=== PATIENT | male | born 1980 | race African-American/Black ===

== ENCOUNTER 2019-02-16 13:59 | Inpatient (IN) | payer MEDICAID ==
[~2019-02-16] VITALS: Ht 190.5 cm; Wt 64.1 kg
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
[2019-02-16 15:44] LABS: INTERNATIONAL NORMALIZED RATIO 0.94 (0.93-1.1); PROTHROMBIN TIME 9.9 Seconds (9.6-11.5)
[2019-02-16 15:48] LABS: ALANINE AMINOTRANSFERASE 13 U/L (12-78); ALBUMIN 1.2 g/dL (3.4-5.0); ANION GAP 16 mmol/L (5-15); CALCIUM 8.3 mg/dL (8.5-10.1); CHLORIDE 106 mmol/L (98-107)
[2019-02-16 15:52] LABS: ALKALINE PHOSPHATASE 84 U/L (45-117); BILIRUBIN,TOTAL 0.2 mg/dL (0.2-1.0); TOTAL PROTEIN 6.7 g/dL (6.4-8.2)
[2019-02-16 15:55] LABS: MEAN CORPUSCULAR HEMOGLOBIN 31.9 pg (27.5-34.5); MEAN CORPUSCULAR HGB CONC 33.7 g/dL (33.2-36.2); MEAN CORPUSCULAR VOLUME 94.6 fL (81-97); MEAN PLATELET VOLUME 7.9 fL (7.4-10.4); PLATELET COUNT 370 x10^3/uL (130-400); RED CELL DISTRIBUTION WIDTH 15.8 % (9.4-14.8)
[2019-02-16 16:11] LABS: MICROSCOPIC INDICATED
[2019-02-16 16:23] LABS: CULTURE INDICATED? NO
--- NOTE | 2019-02-16 16:30 | NUR ---
US TECH AT BEDSIDE.
[2019-02-16 16:55] LABS: MD YES
[2019-02-16 16:56] LABS: BASOS% (MANUAL) 1 % (0-1); LYMPH#(MANUAL) 0.51 x10^3/uL (1-3.4); LYMPHS% (MANUAL) 5 % (22-44); SEG#(MANUAL) 9.49 x10^3/uL (1.8-6.8); SEGS% (MANUAL) 94 % (42-75)
[2019-02-16 16:57] LABS: <PLATELET ESTIMATE> ADEQUATE; ANISOCYTOSIS 1+; LARGE PLATELETS 1+
[2019-02-16] MEDS ORDERED: NS + 20MEQ KCL 1,000 ML IV SCH ×2 (17:06→17:30)
[2019-02-16] MEDS ORDERED: POTASSIUM CHLORIDE 20 MEQ, MAGNESIUM SULFATE 2 GM, THIAMINE 200 MG, MVI ADULT 10 ML, FO... IV SCH (18:00)
[2019-02-16 18:16] LABS: ANION GAP 14 mmol/L (5-15); CALCIUM 8.1 mg/dL (8.5-10.1); CHLORIDE 109 mmol/L (98-107)
[2019-02-16 18:49] VITALS: BP 103/67
[2019-02-16] MEDS: HEPARIN 5,000 UNITS/ML, 1ML SQ SCH (20:49)
[2019-02-16 21:47] LABS: AMPHETAMINE SCREEN, URINE Negative (Negative); BARBITURATE SCREEN, URINE Negative (Negative); BENZODIAZEPINE SCREEN, URINE Negative (Negative); CANNABINOID SCREEN, URINE Negative (Negative); COCAINE SCREEN, URINE Positive (Negative); METHADONE SCREEN, URINE Negative (Negative); OPIATE SCREEN, URINE Negative (Negative)
[2019-02-16 21:56] LABS: PROTEIN/CREATININE RATIO,URINE 8915 (0-200); TOTAL PROTEIN,URINE RANDOM 731 mg/dL (0-12)
[2019-02-16] MEDS: LIDODERM 5% PATCH TD PRN (22:35)
[2019-02-16 23:39] LABS: ANION GAP 16 mmol/L (5-15); CALCIUM 7.8 mg/dL (8.5-10.1); CHLORIDE 108 mmol/L (98-107)
[2019-02-17 01:28] VITALS: BP 108/74
[2019-02-17] MEDS: HEPARIN 5,000 UNITS/ML, 1ML SQ SCH ×3 (05:26→22:26)
[2019-02-17 05:33] LABS: MEAN CORPUSCULAR HEMOGLOBIN 32.2 pg (27.5-34.5); MEAN CORPUSCULAR HGB CONC 33.9 g/dL (33.2-36.2); MEAN PLATELET VOLUME 7.8 fL (7.4-10.4); PLATELET COUNT 309 x10^3/uL (130-400); RED BLOOD COUNT 2.13 x10^6/uL (4.38-5.82); RED CELL DISTRIBUTION WIDTH 15.4 % (9.4-14.8)
[2019-02-17 05:46] LABS: ANION GAP 16 mmol/L (5-15); CALCIUM 7.7 mg/dL (8.5-10.1); CHLORIDE 107 mmol/L (98-107)
[2019-02-17 05:59] LABS: % IRON SATURATION 18 % (20-55); ALANINE AMINOTRANSFERASE 7 U/L (12-78); ALKALINE PHOSPHATASE 72 U/L (45-117); BILIRUBIN,TOTAL 0.3 mg/dL (0.2-1.0); IRON LEVEL 17 mcg/dL (65-175); TOTAL IRON BINDING CAPACITY 95 mcg/dL (250-450); TOTAL PROTEIN 5.4 g/dL (6.4-8.2)
[2019-02-17 06:10] LABS: MD YES
[2019-02-17 06:13] LABS: LYMPH#(MANUAL) 0.68 x10^3/uL (1-3.4); LYMPHS% (MANUAL) 6 % (22-44); MONOS#(MANUAL) 0.23 x10^3/uL (0.3-2.7); MONOS% (MANUAL) 2 % (2-9); SEG#(MANUAL) 10.49 x10^3/uL (1.8-6.8); SEGS% (MANUAL) 92 % (42-75)
[2019-02-17 06:14] LABS: ANISOCYTOSIS 1+; HYPOCHROMIA 1+
[2019-02-17 06:15] LABS: <PLATELET ESTIMATE> ADEQUATE; <PLT MORPHOLOGY> NORMAL PLT MORPH; SPHEROCYTES 1+
[2019-02-17] MEDS ORDERED: SODIUM BICARBONATE 8.4% 75 MEQ in DEXTROSE 5% 1,000 ML IV ONE (06:30)
[2019-02-17 07:37] VITALS: BP 100/56
[2019-02-17 08:30] LABS: CRYPTOSPORIDIUM ANTIGEN Negative (Negative)
[2019-02-17] MEDS ORDERED: SODIUM BICARB IV SCH (11:00)
[2019-02-17] MEDS ORDERED: POTASSIUM CHLORIDE IV SCH (11:00)
[2019-02-17] MEDS ORDERED: [UNRECOGNIZED DRUG - OTHER] IV SCH (11:00)
[2019-02-17] MEDS ORDERED: SODIUM BICARBONATE 8.4% 100 MEQ in DEXTROSE 5% 1,000 ML IV SCH (12:00)
[2019-02-17] MEDS ORDERED: ERGOCALCIFEROL 50,000 UNIT CAPSULE PO SCH (12:00)
[2019-02-17] MEDS: metroNIDAZOLE 500 MG TABLET PO SCH (13:28)
[2019-02-17] MEDS: [UNRECOGNIZED DRUG - OTHER] IV SCH ×2 (14:00→22:45)
[2019-02-17] MEDS: POTASSIUM CHLORIDE IV SCH ×2 (14:00→22:45)
[2019-02-17] MEDS: SODIUM BICARB IV SCH ×2 (14:00→22:45)
[2019-02-17 14:14] VITALS: BP 110/59
[2019-02-17 17:59] LABS: ANION GAP 13 mmol/L (5-15); CALCIUM 7.6 mg/dL (8.5-10.1); CHLORIDE 107 mmol/L (98-107)
[2019-02-17 19:25] VITALS: BP 105/65
[2019-02-17] MEDS: LIDODERM 5% PATCH TD PRN (22:27)
[2019-02-18 02:09] VITALS: BP 102/67
[2019-02-18 05:44] LABS: CHLORIDE 106 mmol/L (98-107)
[2019-02-18 05:47] LABS: ANION GAP 14 mmol/L (5-15); CALCIUM 7.8 mg/dL (8.5-10.1)
[2019-02-18] MEDS: HEPARIN 5,000 UNITS/ML, 1ML SQ SCH ×3 (06:31→21:56)
[2019-02-18 07:39] VITALS: BP 110/68
[2019-02-18 09:06] LABS: MEAN CORPUSCULAR HEMOGLOBIN 32.1 pg (27.5-34.5); MEAN CORPUSCULAR HGB CONC 34.1 g/dL (33.2-36.2); MEAN CORPUSCULAR VOLUME 94.1 fL (81-97); MEAN PLATELET VOLUME 8.5 fL (7.4-10.4); PLATELET COUNT 344 x10^3/uL (130-400); RED BLOOD COUNT 2.07 x10^6/uL (4.38-5.82); RED CELL DISTRIBUTION WIDTH 14.8 % (9.4-14.8)
[2019-02-18 09:29] LABS: BASOPHILS % (AUTO) 0 % (0-1); EOSINOPHILS % (AUTO) 0 % (1-7); LYMPHOCYTES # (AUTO) 0.31 x10^3/uL (1-3.4); LYMPHOCYTES % (AUTO) 3 % (22-44); MD SCAN; MONOCYTES # (AUTO) 0.01 x10^3/uL (0.2-0.8); MONOCYTES % (AUTO) 0 % (2-9); NEUTROPHILS % (AUTO) 97 % (42-75)
[2019-02-18] MEDS: metroNIDAZOLE 500 MG TABLET PO SCH (10:06)
[2019-02-18] MEDS: SODIUM BICARB IV SCH ×2 (10:06→21:56)
[2019-02-18] MEDS: [UNRECOGNIZED DRUG - OTHER] IV SCH ×2 (10:06→21:56)
[2019-02-18] MEDS: POTASSIUM CHLORIDE IV SCH ×2 (10:06→21:56)
[2019-02-18 14:17] VITALS: BP 112/72
[2019-02-18 14:49] LABS: TROPONIN I < 0.015 ng/mL (0.000-0.045)
[2019-02-18] MEDS ORDERED: MIDAZOLAM 1 MG/ML, 5ML ONE (15:21)
[2019-02-18] MEDS ORDERED: FENTANYL PF 100 MCG/2ML ONE (15:21)
[2019-02-18] MEDS ORDERED: CEFAZOLIN PMX 1GM/50ML ONE (15:40)
[2019-02-18 18:36] LABS: ANION GAP 10 mmol/L (5-15); CALCIUM 7.6 mg/dL (8.5-10.1); CHLORIDE 106 mmol/L (98-107); CREATININE 6.95 mg/dL (0.7-1.3)
[2019-02-18 18:39] LABS: TROPONIN I < 0.015 ng/mL (0.000-0.045)
[2019-02-18 20:06] VITALS: BP 112/75
[2019-02-18 21:12] VITALS: BP 110/69
[2019-02-18 22:54] LABS: TROPONIN I < 0.015 ng/mL (0.000-0.045)
[2019-02-18] MEDS ORDERED: TEMAZEPAM 15 MG CAPSULE PO PRN (23:30)
[2019-02-19 01:42] VITALS: BP 102/61
[2019-02-19 03:40] VITALS: BP 100/67
[2019-02-19] MEDS: HEPARIN 5,000 UNITS/ML, 1ML SQ SCH ×3 (05:55→22:30)
[2019-02-19 07:49] LABS: ANION GAP 8 mmol/L (5-15); CALCIUM 7.2 mg/dL (8.5-10.1); CHLORIDE 108 mmol/L (98-107); CREATININE 6.71 mg/dL (0.7-1.3)
[2019-02-19 07:52] LABS: MEAN CORPUSCULAR HEMOGLOBIN 31.5 pg (27.5-34.5); MEAN CORPUSCULAR HGB CONC 33.7 g/dL (33.2-36.2); MEAN CORPUSCULAR VOLUME 93.6 fL (81-97); MEAN PLATELET VOLUME 8.1 fL (7.4-10.4); PLATELET COUNT 357 x10^3/uL (130-400); RED CELL DISTRIBUTION WIDTH 15.1 % (9.4-14.8)
[2019-02-19 08:19] VITALS: BP 111/75
[2019-02-19 08:27] LABS: BASOPHILS % (AUTO) 0 % (0-1); EOSINOPHILS # (AUTO) 0.05 x10^3/uL (0-0.4); EOSINOPHILS % (AUTO) 1 % (1-7); LYMPHOCYTES % (AUTO) 5 % (22-44); MD SCAN; MONOCYTES # (AUTO) 0.15 x10^3/uL (0.2-0.8); MONOCYTES % (AUTO) 4 % (2-9); NEUTROPHILS # (AUTO) 3.38 x10^3/uL (1.8-6.8); NEUTROPHILS % (AUTO) 90 % (42-75)
[2019-02-19] MEDS ORDERED: metroNIDAZOLE 500 MG TABLET PO SCH (09:00)
[2019-02-19] MEDS: POTASSIUM CHLORIDE IV SCH ×2 (09:05→15:16)
[2019-02-19] MEDS: [UNRECOGNIZED DRUG - OTHER] IV SCH ×2 (09:05→15:16)
[2019-02-19] MEDS: SODIUM BICARB IV SCH ×2 (09:05→15:16)
[2019-02-19 14:04] VITALS: BP 116/78
[2019-02-19 19:05] VITALS: BP 117/77
[2019-02-19 20:25] VITALS: BP 121/87
[2019-02-20] VITALS (9 sets, daily range): BP systolic 110–132; BP diastolic 72–89
[2019-02-20] MEDS: HEPARIN 5,000 UNITS/ML, 1ML SQ SCH ×3 (05:11→22:54)
[2019-02-20] MEDS: POTASSIUM CHLORIDE IV SCH (06:27)
[2019-02-20] MEDS: SODIUM BICARB IV SCH (06:27)
[2019-02-20] MEDS: [UNRECOGNIZED DRUG - OTHER] IV SCH (06:27)
[2019-02-20] MEDS ORDERED: ARANESP 100 MCG/ML **ESRD SQ SCH (10:00)
[2019-02-21 01:12] VITALS: BP 108/71
[2019-02-21] MEDS: [UNRECOGNIZED DRUG - OTHER] IV SCH ×2 (01:40→11:09)
[2019-02-21] MEDS: SODIUM BICARB IV SCH ×2 (01:40→11:09)
[2019-02-21] MEDS: POTASSIUM CHLORIDE IV SCH ×2 (01:40→11:09)
[2019-02-21] MEDS: HEPARIN 5,000 UNITS/ML, 1ML SQ SCH ×3 (06:17→22:44)
[2019-02-21 06:33] LABS: MEAN CORPUSCULAR HGB CONC 33.3 g/dL (33.2-36.2); MEAN CORPUSCULAR VOLUME 93.2 fL (81-97); MEAN PLATELET VOLUME 7.9 fL (7.4-10.4); PLATELET COUNT 365 x10^3/uL (130-400); RED BLOOD COUNT 2.66 x10^6/uL (4.38-5.82); RED CELL DISTRIBUTION WIDTH 16.2 % (9.4-14.8)
[2019-02-21 06:39] LABS: ANION GAP 7 mmol/L (5-15); CALCIUM 7.5 mg/dL (8.5-10.1); CHLORIDE 109 mmol/L (98-107); CREATININE 5.83 mg/dL (0.7-1.3)
[2019-02-21 06:40] VITALS: BP 118/81
[2019-02-21 06:57] LABS: BASOPHILS # (AUTO) 0.02 x10^3/uL (0-0.1); BASOPHILS % (AUTO) 1 % (0-1); EOSINOPHILS % (AUTO) 0 % (1-7); LYMPHOCYTES # (AUTO) 0.28 x10^3/uL (1-3.4); LYMPHOCYTES % (AUTO) 11 % (22-44); MD SCAN; MONOCYTES # (AUTO) 0.28 x10^3/uL (0.2-0.8); MONOCYTES % (AUTO) 11 % (2-9); NEUTROPHILS # (AUTO) 2.05 x10^3/uL (1.8-6.8); NEUTROPHILS % (AUTO) 78 % (42-75)
[2019-02-21 10:31] LABS: QUANTIFERON TB Ag1-NIL 0 (0.000-0.000)
[2019-02-21] MEDS ORDERED: FLUCONAZOLE 200 MG TABLET PO ONE (13:00)
[2019-02-21 13:05] VITALS: BP 133/90
[2019-02-21] MEDS ORDERED: ONDANSETRON 2MG/ML, 2ML IVPush PRN (16:00)
[2019-02-21] MEDS ORDERED: ONDANSETRON 2MG/ML, 2ML ONE (16:02)
[2019-02-21 19:59] VITALS: BP 103/69
[2019-02-22 01:30] VITALS: BP 109/80
[2019-02-22 06:17] LABS: ALANINE AMINOTRANSFERASE 22 U/L (12-78); ALBUMIN 1.2 g/dL (3.4-5.0); ANION GAP 7 mmol/L (5-15); CALCIUM 6.9 mg/dL (8.5-10.1); CHLORIDE 107 mmol/L (98-107); CREATININE 3.83 mg/dL (0.7-1.3)
[2019-02-22 06:19] LABS: ALKALINE PHOSPHATASE 68 U/L (45-117); TOTAL PROTEIN 5.2 g/dL (6.4-8.2)
[2019-02-22 06:21] LABS: BILIRUBIN,TOTAL < 0.1 mg/dL (0.2-1.0); MEAN CORPUSCULAR HEMOGLOBIN 31.3 pg (27.5-34.5); MEAN CORPUSCULAR HGB CONC 33.5 g/dL (33.2-36.2); MEAN CORPUSCULAR VOLUME 93.3 fL (81-97); RED CELL DISTRIBUTION WIDTH 15.7 % (9.4-14.8)
[2019-02-22] MEDS: HEPARIN 5,000 UNITS/ML, 1ML SQ SCH ×3 (06:23→22:49)
[2019-02-22 06:48] LABS: MEAN PLATELET VOLUME 8.1 fL (7.4-10.4); PLATELET COUNT 322 x10^3/uL (130-400)
[2019-02-22 06:50] LABS: BASOPHILS # (AUTO) 0.02 x10^3/uL (0-0.1); BASOPHILS % (AUTO) 1 % (0-1); EOSINOPHILS # (AUTO) 0.02 x10^3/uL (0-0.4); EOSINOPHILS % (AUTO) 1 % (1-7); LYMPHOCYTES # (AUTO) 0.43 x10^3/uL (1-3.4); LYMPHOCYTES % (AUTO) 20 % (22-44); MD SCAN; MONOCYTES # (AUTO) 0.38 x10^3/uL (0.2-0.8); MONOCYTES % (AUTO) 18 % (2-9); NEUTROPHILS % (AUTO) 60 % (42-75)
[2019-02-22 08:15] VITALS: BP 100/69
[2019-02-22] MEDS ORDERED: FLUCONAZOLE 100 MG TABLET PO SCH (09:00)
[2019-02-22 14:10] VITALS: BP 117/78
[2019-02-22 20:23] VITALS: BP 111/76
[2019-02-23 00:46] VITALS: BP 108/68
[2019-02-23] MEDS: HEPARIN 5,000 UNITS/ML, 1ML SQ SCH (05:41)
[2019-02-23 05:48] LABS: ANION GAP 8 mmol/L (5-15); CALCIUM 7.2 mg/dL (8.5-10.1); CHLORIDE 111 mmol/L (98-107); CREATININE 5.15 mg/dL (0.7-1.3)
[2019-02-23 05:49] LABS: MEAN CORPUSCULAR HEMOGLOBIN 32.3 pg (27.5-34.5); MEAN CORPUSCULAR HGB CONC 34.6 g/dL (33.2-36.2); MEAN CORPUSCULAR VOLUME 93.2 fL (81-97); PLATELET COUNT 324 x10^3/uL (130-400); RED BLOOD COUNT 2.23 x10^6/uL (4.38-5.82)
[2019-02-23 06:11] LABS: MD YES
[2019-02-23 06:14] LABS: <PLATELET ESTIMATE> ADEQUATE; <PLT MORPHOLOGY> NORMAL PLT MORPH; <RBC MORPHOLOGY> NORMAL; BASOS#(MANUAL) 0.02 x10^3/uL (0-0.1); BASOS% (MANUAL) 1 % (0-1); LYMPH#(MANUAL) 0.38 x10^3/uL (1-3.4); LYMPHS% (MANUAL) 19 % (22-44); MONOS#(MANUAL) 0.18 x10^3/uL (0.3-2.7); MONOS% (MANUAL) 9 % (2-9); SEG#(MANUAL) 1.42 x10^3/uL (1.8-6.8); SEGS% (MANUAL) 71 % (42-75)
[2019-02-23 07:59] VITALS: BP 112/77
[2019-02-23] MEDS ORDERED: metroNIDAZOLE 500 MG TABLET PO SCH ×2 (09:00)
== END 2019-02-23 08:15 | disposition left against medical advice (07) | DRG 974 ==
LOC: ED 17:05 → EDIP 17:06 → ED 17:32 → 4WST 18:37
PROVIDERS: ADMIT Internal Medicine; ATTEND Internal Medicine
PROC: 5A1D70Z Performance of Urinary Filtration, Intermittent, Less than 6 Hours Per Day (ICD-10-PCS; principal; 2019-02-18)
PROC: 02HV33Z Insertion of Infusion Device into Superior Vena Cava, Percutaneous Approach (ICD-10-PCS; 2019-02-18)
PROC: B5181ZA Fluoroscopy of Superior Vena Cava using Low Osmolar Contrast, Guidance (ICD-10-PCS; 2019-02-18)
PROC: B548ZZA Ultrasonography of Superior Vena Cava, Guidance (ICD-10-PCS; 2019-02-18)
PROC: 0JH63XZ Insertion of Tunneled Vascular Access Device into Chest Subcutaneous Tissue and Fascia, Percutaneous Approach (ICD-10-PCS; 2019-02-18)
PROC: 5A1D70Z Performance of Urinary Filtration, Intermittent, Less than 6 Hours Per Day (ICD-10-PCS; 2019-02-19)
PROC: 30233N1 Transfusion of Nonautologous Red Blood Cells into Peripheral Vein, Percutaneous Approach (ICD-10-PCS; 2019-02-20)
PROC: 5A1D70Z Performance of Urinary Filtration, Intermittent, Less than 6 Hours Per Day (ICD-10-PCS; 2019-02-21)
DX: B20 Human immunodeficiency virus [HIV] disease (principal); N18.6 End stage renal disease; B37.0 Candidal stomatitis; E43 Unspecified severe protein-calorie malnutrition; N17.9 Acute kidney failure, unspecified; E87.1 Hypo-osmolality and hyponatremia; E87.2 Acidosis; A07.1 Giardiasis [lambliasis]; Z68.1 Body mass index [BMI] 19.9 or less, adult; K56.7 Ileus, unspecified; Z66 Do not resuscitate; K52.9 Noninfective gastroenteritis and colitis, unspecified; Z53.21 Procedure and treatment not carried out due to patient leaving prior to being seen by health care provider; D64.9 Anemia, unspecified; E21.3 Hyperparathyroidism, unspecified; E55.9 Vitamin D deficiency, unspecified; E86.1 Hypovolemia; E87.6 Hypokalemia; F10.20 Alcohol dependence, uncomplicated; F14.10 Cocaine abuse, uncomplicated; F17.200 Nicotine dependence, unspecified, uncomplicated; Z83.3 Family history of diabetes mellitus; Z84.1 Family history of disorders of kidney and ureter
CPT/HCPCS: 36415; 74022; 77001; 87536; 99285; J7042; 36558; 76770; 80048; 80053; 80074; 80307; 81001; 82140; 82306; 82570; 82728; 83540; 83550; 83605; 83690; 83735; 83880; 83970; 84100; 84156; 84443; 84484; 85014; 85018; 85025; 85610; 86160; 86162; 86480; 86704; 86706; 86708; 86803; 86850; 86900; 86923; 87040; 87328; 87329; 87340; 87899; 93005; 99156; 99157; G0378; J0690; J0882; J1644; J2250; J2405; J3010; J3411; J3475; J3480; J7070; C1750; J1642; P9016

== ENCOUNTER 2019-05-16 16:14 | Inpatient (IN) | payer MEDICAID ==
[~2019-05-16] VITALS: Ht 190.5 cm; Wt 82.0 kg
--- NOTE | 2019-05-16 16:15 | NUR ---
Pt to room with [facility]; placed on monitor; metallurgical lab technician to bedside; provider to bedside; pt reports diffuculty breathing; rapid breathing; SP02 normal > 95.
--- NOTE | 2019-05-16 16:57 | NUR ---
BREAK RN: PT SITTING UP ON GURNEY, "I HAVE THE FLUCTUATION BREATHING EVERY TIME I TRY TO GO TO SLEEP. I WANT TO GO TO SLEEP SO BAD. I BEEN UP ALL NIGHT" PT WITH INCREASED BREATHING AT TIMES. RA SAT 98%, ST PER MONITOR, AUTO BP IN PLACE. PT WITH IV IN LW, PLACED BY EMS. SERVICE DELIVERY DIRECTOR AT BEDSIDE FOR BLOOD DRAW.
[2019-05-16] MEDS ORDERED: SODIUM CHLORIDE FLUSH 10ML SYR IVF ONE (17:00)
--- NOTE | 2019-05-16 17:11 | NUR ---
REPORT TO GEOVANY GIBBS
[2019-05-16 17:27] LABS: INTERNATIONAL NORMALIZED RATIO 1.02 (0.93-1.1); PROTHROMBIN TIME 10.7 Seconds (9.6-11.5)
[2019-05-16 17:29] LABS: ALANINE AMINOTRANSFERASE 15 U/L (12-78); ALBUMIN 1.7 g/dL (3.4-5.0); ANION GAP 13 mmol/L (5-15); CALCIUM 7.7 mg/dL (8.5-10.1); CHLORIDE 109 mmol/L (98-107)
[2019-05-16 17:33] LABS: ALKALINE PHOSPHATASE 67 U/L (45-117); BILIRUBIN,TOTAL 0.2 mg/dL (0.2-1.0); TOTAL PROTEIN 6.5 g/dL (6.4-8.2); TROPONIN I 0.019 ng/mL (0.000-0.045)
[2019-05-16 17:53] LABS: MEAN CORPUSCULAR VOLUME 96.8 fL (81-97); MEAN PLATELET VOLUME 8.2 fL (7.4-10.4); PLATELET COUNT 261 x10^3/uL (130-400); RED BLOOD COUNT 2.39 x10^6/uL (4.38-5.82); RED CELL DISTRIBUTION WIDTH 19.8 % (9.4-14.8)
[2019-05-16 17:54] LABS: MD YES
[2019-05-16 17:57] LABS: BASOS#(MANUAL) 0.07 x10^3/uL (0-0.1); BASOS% (MANUAL) 3 % (0-1); EOS#(MANUAL) 0.02 x10^3/uL (0.0-0.4); EOS% (MANUAL) 1 % (1-7); LYMPH#(MANUAL) 0.91 x10^3/uL (1-3.4); LYMPHS% (MANUAL) 38 % (22-44); MONOS#(MANUAL) 0.36 x10^3/uL (0.3-2.7); MONOS% (MANUAL) 15 % (2-9); SEG#(MANUAL) 1.03 x10^3/uL (1.8-6.8); SEGS% (MANUAL) 43 % (42-75)
[2019-05-16 17:58] LABS: ANISOCYTOSIS 1+; HYPOCHROMIA 1+; MICROCYTOSIS 1+
[2019-05-16 17:59] LABS: <PLATELET ESTIMATE> ADEQUATE; LARGE PLATELETS 1+; SPHEROCYTES 1+
--- NOTE | 2019-05-16 18:41 | NUR ---
Patient helped with urinal; tachypnea better while patient is distracted; patient returned to [facility]; respiratory symptoms improved as patient nodded off
[2019-05-16] MEDS ORDERED: SODIUM CHLORIDE FLUSH 10ML SYR IVF PRN (19:00)
[2019-05-16] MEDS ORDERED: HYDR-3237 PO (19:15)
[2019-05-16] MEDS ORDERED: RITO100C PO (19:15)
[2019-05-16] MEDS ORDERED: CHOL500045 PO (19:15)
[2019-05-16] MEDS ORDERED: DOLU1TAB PO (19:15)
[2019-05-16] MEDS ORDERED: LOPE2CAP PO (19:15)
[2019-05-16] MEDS ORDERED: DARU800T2 PO (19:15)
--- NOTE | 2019-05-16 19:20 | NUR ---
Report given to Jennifer; pmh; current problem and plan of care covered. Questions answered
[2019-05-16 20:18] VITALS: BP 115/97
[2019-05-16] MEDS ORDERED: LABETALOL 5MG/ML, 20ML IVPush PRN (22:00)
[2019-05-16] MEDS ORDERED: ACETAMINOPHEN 325 MG TABLET PO PRN (22:00)
[2019-05-16 23:13] LABS: TROPONIN I 0.027 ng/mL (0.000-0.045)
[2019-05-16] MEDS: HEPARIN 5,000 UNITS/ML, 1ML SQ SCH (23:55)
[2019-05-17] MEDS: HYDROcodone/APAP 5/325 TABLET PO PRN ×4 (00:19→20:10)
[2019-05-17 00:57] VITALS: BP 144/97
[2019-05-17 04:44] LABS: ANION GAP 11 mmol/L (5-15); CALCIUM 7.7 mg/dL (8.5-10.1); CHLORIDE 108 mmol/L (98-107); CREATININE 9.96 mg/dL (0.7-1.3)
[2019-05-17 04:48] LABS: TROPONIN I 0.037 ng/mL (0.000-0.045)
[2019-05-17 05:23] LABS: MEAN CORPUSCULAR HEMOGLOBIN 30.6 pg (27.5-34.5); MEAN CORPUSCULAR HGB CONC 31.6 g/dL (33.2-36.2); MEAN CORPUSCULAR VOLUME 96.7 fL (81-97); MEAN PLATELET VOLUME 8.5 fL (7.4-10.4); PLATELET COUNT 246 x10^3/uL (130-400)
[2019-05-17] MEDS ORDERED: ONDA4TAB7 PO (05:56)
[2019-05-17] MEDS ORDERED: FLUC100T4 PO (05:56)
[2019-05-17 06:20] LABS: MD YES
[2019-05-17 06:31] LABS: <PLATELET ESTIMATE> ADEQUATE; <PLT MORPHOLOGY> NORMAL PLT MORPH; ANISOCYTOSIS 1+; EOS#(MANUAL) 0.05 x10^3/uL (0.0-0.4); EOS% (MANUAL) 2 % (1-7); HYPOCHROMIA 1+; LYMPH#(MANUAL) 0.83 x10^3/uL (1-3.4); LYMPHS% (MANUAL) 32 % (22-44); MICROCYTOSIS 1+; MONOS#(MANUAL) 0.36 x10^3/uL (0.3-2.7); MONOS% (MANUAL) 14 % (2-9); SEG#(MANUAL) 1.35 x10^3/uL (1.8-6.8); SEGS% (MANUAL) 52 % (42-75)
[2019-05-17 06:32] LABS: ACANTHOCYTES 1+; OVALOCYTES 1+
[2019-05-17 07:37] VITALS: BP 130/89
[2019-05-17] MEDS: DOLUTEGRAVIR HOMEMEDPO SCH (09:00)
[2019-05-17] MEDS: DARUNAVIR 800 MG TABLET PO SCH (09:00)
[2019-05-17] MEDS: RILPIVIRINE HOMEMEDPO SCH (09:00)
[2019-05-17] MEDS: RITONAVIR 100 MG TABLET PO SCH (09:00)
[2019-05-17] MEDS: HEPARIN 5,000 UNITS/ML, 1ML SQ SCH ×3 (09:02→23:33)
[2019-05-17] MEDS: SULFAMETH./TRIMETHOPRIM DS 800MG/160MG TABLET PO SCH ×2 (09:02→20:10)
[2019-05-17 16:59] VITALS: BP 124/96
[2019-05-17 18:10] VITALS: BP 128/84
[2019-05-17] MEDS: GABAPENTIN 100 MG CAPSULE PO PRN (20:10)
[2019-05-17 20:37] VITALS: BP 131/98
[2019-05-18 01:21] VITALS: BP 132/97
[2019-05-18] MEDS ORDERED: ONDANSETRON 2MG/ML, 2ML IVPush PRN (01:30)
[2019-05-18 05:52] LABS: MEAN CORPUSCULAR HEMOGLOBIN 30.1 pg (27.5-34.5); MEAN CORPUSCULAR HGB CONC 31.2 g/dL (33.2-36.2); MEAN CORPUSCULAR VOLUME 96.5 fL (81-97); MEAN PLATELET VOLUME 8.8 fL (7.4-10.4); PLATELET COUNT 265 x10^3/uL (130-400)
[2019-05-18 05:59] LABS: ANION GAP 11 mmol/L (5-15); CALCIUM 8.1 mg/dL (8.5-10.1); CHLORIDE 107 mmol/L (98-107); CREATININE 7.49 mg/dL (0.7-1.3)
[2019-05-18 07:39] VITALS: BP 125/86
[2019-05-18 07:50] LABS: MD YES
[2019-05-18 07:57] LABS: <PLATELET ESTIMATE> ADEQUATE; <PLT MORPHOLOGY> NORMAL PLT MORPH; ANISOCYTOSIS 1+; BASOS#(MANUAL) 0.08 x10^3/uL (0-0.1); BASOS% (MANUAL) 3 % (0-1); EOS#(MANUAL) 0.08 x10^3/uL (0.0-0.4); EOS% (MANUAL) 3 % (1-7); HYPOCHROMIA 1+; LYMPH#(MANUAL) 0.96 x10^3/uL (1-3.4); LYMPHS% (MANUAL) 37 % (22-44); MICROCYTOSIS 1+; MONOS% (MANUAL) 4 % (2-9); OVALOCYTES 1+; SEG#(MANUAL) 1.38 x10^3/uL (1.8-6.8); SEGS% (MANUAL) 53 % (42-75)
[2019-05-18] MEDS: DOLUTEGRAVIR HOMEMEDPO SCH (09:00)
[2019-05-18] MEDS: DARUNAVIR 800 MG TABLET PO SCH (09:00)
[2019-05-18] MEDS: RILPIVIRINE HOMEMEDPO SCH (09:00)
[2019-05-18] MEDS: RITONAVIR 100 MG TABLET PO SCH (09:42)
[2019-05-18] MEDS: HEPARIN 5,000 UNITS/ML, 1ML SQ SCH ×3 (09:42→23:50)
[2019-05-18] MEDS: SULFAMETH./TRIMETHOPRIM DS 800MG/160MG TABLET PO SCH ×2 (09:42→20:44)
[2019-05-18 13:07] VITALS: BP 119/95
[2019-05-18] MEDS: GABAPENTIN 100 MG CAPSULE PO PRN (18:57)
[2019-05-18] MEDS: HYDROcodone/APAP 5/325 TABLET PO PRN (18:57)
[2019-05-18 19:31] VITALS: BP 129/92
[2019-05-19 01:58] VITALS: BP 122/87
[2019-05-19 07:28] LABS: MICROSCOPIC AUTO
[2019-05-19 07:30] LABS: CULTURE INDICATED? NO
[2019-05-19 07:40] LABS: AMPHETAMINE SCREEN, URINE Negative (Negative); BARBITURATE SCREEN, URINE Negative (Negative); BENZODIAZEPINE SCREEN, URINE Negative (Negative); CANNABINOID SCREEN, URINE Negative (Negative); COCAINE SCREEN, URINE Positive (Negative); METHADONE SCREEN, URINE Negative (Negative); OPIATE SCREEN, URINE Positive (Negative)
[2019-05-19] MEDS: HEPARIN 5,000 UNITS/ML, 1ML SQ SCH (08:00)
[2019-05-19] MEDS: SULFAMETH./TRIMETHOPRIM DS 800MG/160MG TABLET PO SCH (09:00)
[2019-05-19] MEDS: RILPIVIRINE HOMEMEDPO SCH (09:00)
[2019-05-19] MEDS: DARUNAVIR 800 MG TABLET PO SCH (09:00)
[2019-05-19] MEDS: RITONAVIR 100 MG TABLET PO SCH (09:00)
[2019-05-19] MEDS: DOLUTEGRAVIR HOMEMEDPO SCH (09:00)
[2019-05-19 09:35] VITALS: BP 117/95
== END 2019-05-19 12:38 | disposition left against medical advice (07) | DRG 314 ==
LOC: ED 19:05 → EDIP 19:15 → 4WST 19:54
PROVIDERS: ADMIT Family Medicine; ATTEND Family Medicine
PROC: 5A1D70Z Performance of Urinary Filtration, Intermittent, Less than 6 Hours Per Day (ICD-10-PCS; principal; 2019-05-16)
PROC: 5A1D70Z Performance of Urinary Filtration, Intermittent, Less than 6 Hours Per Day (ICD-10-PCS; 2019-05-17)
PROC: 5A1D70Z Performance of Urinary Filtration, Intermittent, Less than 6 Hours Per Day (ICD-10-PCS; 2019-05-19)
DX: I31.3 Pericardial effusion (noninflammatory) (principal); I50.41 Acute combined systolic (congestive) and diastolic (congestive) heart failure; E43 Unspecified severe protein-calorie malnutrition; N18.6 End stage renal disease; J90 Pleural effusion, not elsewhere classified; B20 Human immunodeficiency virus [HIV] disease; I42.9 Cardiomyopathy, unspecified; J98.11 Atelectasis; D70.9 Neutropenia, unspecified; N25.0 Renal osteodystrophy; D64.9 Anemia, unspecified; G89.29 Other chronic pain; R09.02 Hypoxemia; Z81.8 Family history of other mental and behavioral disorders; Z83.3 Family history of diabetes mellitus; Z87.891 Personal history of nicotine dependence; Z99.2 Dependence on renal dialysis; Z68.22 Body mass index [BMI] 22.0-22.9, adult
CPT/HCPCS: 36415; 71045; 71046; 71250; 80048; 80053; 80307; 81001; 83605; 83615; 83880; 84145; 84484; 85025; 85610; 85651; 85730; 86140; 86361; 87040; 90935; 93005; 93306; 99285; G0378; J1644; J2405

== ENCOUNTER 2019-05-23 14:15 | Inpatient (IN) | payer MEDICAID ==
[~2019-05-23] VITALS: Ht 190.5 cm; Wt 83.5 kg
[~2019-05-23 14:15] MED LIST: CHOL500045 PO; DARU800T2 PO; DOLU1TAB PO; FLUC100T4 PO; HYDR-3237 PO; LOPE2CAP PO; ONDA4TAB7 PO; RITO100C PO
--- NOTE | 2019-05-23 15:21 | NUR ---
UPON ARRIVAL RAPID RESPIRATIONS AT 30. PT RR NO LONGER RAPID. XRAY AT BEDSIDE
[2019-05-23 15:31] LABS: ALBUMIN 1.9 g/dL (3.4-5.0); ANION GAP 11 mmol/L (5-15); CALCIUM 8.1 mg/dL (8.5-10.1); CHLORIDE 107 mmol/L (98-107)
--- NOTE | 2019-05-23 15:32 | NUR ---
PT HAVING INTERMITTENT EPISODES OF RAPID RESPIRATIONS AND THEN BACK TO REGULAR RATE. PT STATES HE HAS BEEN EXPERIENCING THIS FOR OVER A WEEK, MAYBE 10 TIMES A DAY. IT IS NONSTOP AT NIGHT
[2019-05-23 15:35] LABS: TROPONIN I 0.034 ng/mL (0.000-0.045)
[2019-05-23 15:40] LABS: MEAN CORPUSCULAR HGB CONC 30.6 g/dL (33.2-36.2); MEAN PLATELET VOLUME 8.4 fL (7.4-10.4); PLATELET COUNT 308 x10^3/uL (130-400); RED BLOOD COUNT 2.31 x10^6/uL (4.38-5.82); RED CELL DISTRIBUTION WIDTH 19.2 % (9.4-14.8)
[2019-05-23 16:05] LABS: MD YES
[2019-05-23 16:09] LABS: BASOS#(MANUAL) 0.05 x10^3/uL (0-0.1); BASOS% (MANUAL) 1 % (0-1); EOS#(MANUAL) 0.05 x10^3/uL (0.0-0.4); EOS% (MANUAL) 1 % (1-7); LYMPHS% (MANUAL) 24 % (22-44); MONOS#(MANUAL) 0.37 x10^3/uL (0.3-2.7); MONOS% (MANUAL) 8 % (2-9); SEG#(MANUAL) 3.04 x10^3/uL (1.8-6.8); SEGS% (MANUAL) 66 % (42-75)
[2019-05-23 16:10] LABS: HYPOCHROMIA 1+; MICROCYTOSIS 1+; OVALOCYTES 1+; POLYCHROMASIA 1+
[2019-05-23 16:11] LABS: <PLATELET ESTIMATE> ADEQUATE; <PLT MORPHOLOGY> NORMAL PLT MORPH; ROULEAUX 1+; SCHISTOCYTES 1+
--- NOTE | 2019-05-23 17:22 | NUR ---
hospitalist at bedside
[2019-05-23] MEDS ORDERED: hydrALAzine 20 MG/ML, 1ML IVPush PRN (17:30)
[2019-05-23] MEDS ORDERED: HYDROmorphone 2 MG/ML, 1ML IVPush PRN (17:30)
[2019-05-23] MEDS ORDERED: ONDANSETRON 2MG/ML, 2ML IVPush PRN (17:30)
[2019-05-23] MEDS ORDERED: ACETAMINOPHEN 325 MG TABLET PO PRN (17:30)
--- NOTE | 2019-05-23 17:55 | NUR ---
REPORT TO VANNESA GIBBS. PT AWARE BLOOD NOW READY AND THAT CONSENT OBTAINED. TO BE TRANSPORTED TO FLOOR
[2019-05-23 18:19] LABS: TROPONIN I 0.028 ng/mL (0.000-0.045)
[2019-05-23 18:22] VITALS: BP 111/70
[2019-05-23] MEDS ORDERED: GABA-826 PO (18:36)
[2019-05-23] MEDS ORDERED: DARBEPOETIN 100 MCG/ML SQ SCH (19:30)
[2019-05-23] MEDS: HYDROcodone/APAP 5/325 TABLET PO PRN (20:23)
[2019-05-23 22:02] VITALS: BP 126/94
[2019-05-23 22:25] VITALS: BP 129/93
[2019-05-24 01:03] VITALS: BP 132/97
[2019-05-24 01:59] VITALS: BP 133/95
[2019-05-24 02:00] VITALS: BP 133/95
[2019-05-24 02:39] LABS: BASOPHILS % (AUTO) 0 % (0-1); EOSINOPHILS # (AUTO) 0.11 x10^3/uL (0-0.4); EOSINOPHILS % (AUTO) 2 % (1-7); LYMPHOCYTES # (AUTO) 1.71 x10^3/uL (1-3.4); LYMPHOCYTES % (AUTO) 32 % (22-44); MD NO; MEAN CORPUSCULAR HEMOGLOBIN 31.5 pg (27.5-34.5); MEAN CORPUSCULAR VOLUME 98.4 fL (81-97); MEAN PLATELET VOLUME 8.7 fL (7.4-10.4); MONOCYTES # (AUTO) 0.38 x10^3/uL (0.2-0.8); MONOCYTES % (AUTO) 7 % (2-9); NEUTROPHILS # (AUTO) 3.17 x10^3/uL (1.8-6.8); NEUTROPHILS % (AUTO) 59 % (42-75); PLATELET COUNT 303 x10^3/uL (130-400); RED BLOOD COUNT 2.68 x10^6/uL (4.38-5.82); RED CELL DISTRIBUTION WIDTH 18.1 % (9.4-14.8)
[2019-05-24 02:48] LABS: ALANINE AMINOTRANSFERASE 30 U/L (12-78); ALBUMIN 1.9 g/dL (3.4-5.0); ANION GAP 13 mmol/L (5-15); CALCIUM 7.7 mg/dL (8.5-10.1); CHLORIDE 107 mmol/L (98-107)
[2019-05-24 02:50] LABS: ALKALINE PHOSPHATASE 93 U/L (45-117); BILIRUBIN,TOTAL 1.1 mg/dL (0.2-1.0); TOTAL PROTEIN 7.3 g/dL (6.4-8.2)
[2019-05-24] MEDS: HYDROcodone/APAP 5/325 TABLET PO PRN ×3 (04:19→16:48)
[2019-05-24] MEDS ORDERED: morphine SULFATE 10 MG/ML, 1ML ONE (04:57)
[2019-05-24] MEDS: morphine SULFATE 10 MG/ML, 1ML IVPush PRN (05:03)
[2019-05-24 06:13] LABS: TROPONIN I 0.051 ng/mL (0.000-0.045)
[2019-05-24 07:19] VITALS: BP 133/99
[2019-05-24] MEDS: RITONAVIR 100 MG PO SCH (09:00)
[2019-05-24] MEDS: RILPIVIRINE PO SCH (09:00)
[2019-05-24] MEDS: DOLUTEGRAVIR PO SCH (09:00)
[2019-05-24 12:38] VITALS: BP 142/99
[2019-05-24] MEDS: ASPIRIN 81 MG TABLET CHEW PO SCH (12:44)
[2019-05-24] MEDS: DARUNAVIR 800 MG TABLET PO SCH (12:44)
[2019-05-24] MEDS: LISINOPRIL 10 MG TABLET PO SCH (12:44)
[2019-05-24] MEDS: CARVEDILOL 3.125 MG TABLET PO SCH ×2 (12:44→18:44)
[2019-05-24 19:35] VITALS: BP 113/81
[2019-05-24] MEDS: ATORVASTATIN 40 MG TABLET PO SCH (20:35)
[2019-05-24 23:05] LABS: OCCULT BLOOD NEGATIVE (NEGATIVE)
[2019-05-25 01:07] VITALS: BP 113/79
[2019-05-25] MEDS: morphine SULFATE 10 MG/ML, 1ML IVPush PRN (02:01)
[2019-05-25] MEDS: HYDROcodone/APAP 5/325 TABLET PO PRN ×3 (02:56→22:58)
[2019-05-25] MEDS: CARVEDILOL 3.125 MG TABLET PO SCH (05:57)
[2019-05-25 06:28] LABS: ALANINE AMINOTRANSFERASE 23 U/L (12-78); ALBUMIN 1.5 g/dL (3.4-5.0); ANION GAP 12 mmol/L (5-15); CALCIUM 7.7 mg/dL (8.5-10.1); CHLORIDE 105 mmol/L (98-107); CREATININE 9.83 mg/dL (0.7-1.3)
[2019-05-25 06:29] VITALS: BP 116/84
[2019-05-25 06:31] LABS: ALKALINE PHOSPHATASE 73 U/L (45-117); BILIRUBIN,TOTAL 0.3 mg/dL (0.2-1.0); TOTAL PROTEIN 6.1 g/dL (6.4-8.2)
[2019-05-25 06:40] LABS: BASOPHILS # (AUTO) 0.03 x10^3/uL (0-0.1); BASOPHILS % (AUTO) 1 % (0-1); EOSINOPHILS # (AUTO) 0.15 x10^3/uL (0-0.4); EOSINOPHILS % (AUTO) 2 % (1-7); LYMPHOCYTES # (AUTO) 0.89 x10^3/uL (1-3.4); LYMPHOCYTES % (AUTO) 15 % (22-44); MD NO; MEAN CORPUSCULAR HEMOGLOBIN 31.5 pg (27.5-34.5); MEAN CORPUSCULAR HGB CONC 32.3 g/dL (33.2-36.2); MEAN CORPUSCULAR VOLUME 97.5 fL (81-97); MEAN PLATELET VOLUME 9.1 fL (7.4-10.4); MONOCYTES # (AUTO) 0.41 x10^3/uL (0.2-0.8); MONOCYTES % (AUTO) 7 % (2-9); NEUTROPHILS % (AUTO) 76 % (42-75); PLATELET COUNT 277 x10^3/uL (130-400); RED BLOOD COUNT 2.91 x10^6/uL (4.38-5.82); RED CELL DISTRIBUTION WIDTH 18.1 % (9.4-14.8)
[2019-05-25] MEDS: RILPIVIRINE PO SCH (09:00)
[2019-05-25] MEDS: RITONAVIR 100 MG PO SCH (09:00)
[2019-05-25] MEDS: DOLUTEGRAVIR PO SCH (09:00)
[2019-05-25] MEDS: DARUNAVIR 800 MG TABLET PO SCH (09:53)
[2019-05-25] MEDS: LISINOPRIL 10 MG TABLET PO SCH (09:53)
[2019-05-25] MEDS: GABAPENTIN 100 MG CAPSULE PO SCH ×3 (09:53→20:28)
[2019-05-25] MEDS: ASPIRIN 81 MG TABLET CHEW PO SCH (09:53)
[2019-05-25 12:22] VITALS: BP 113/81
[2019-05-25] MEDS: HEPARIN 5,000 UNITS/ML, 1ML SQ SCH (16:21)
[2019-05-25] MEDS: CARVEDILOL 6.25 MG TABLET PO SCH (18:20)
[2019-05-25 18:58] VITALS: BP 120/81
[2019-05-25] MEDS: ATORVASTATIN 40 MG TABLET PO SCH (20:28)
[2019-05-26] MEDS: HEPARIN 5,000 UNITS/ML, 1ML SQ SCH ×3 (00:11→15:30)
[2019-05-26 02:02] VITALS: BP 121/84
[2019-05-26] MEDS: CARVEDILOL 6.25 MG TABLET PO SCH (05:21)
[2019-05-26 05:49] LABS: ALBUMIN 1.6 g/dL (3.4-5.0); ANION GAP 9 mmol/L (5-15); CALCIUM 7.9 mg/dL (8.5-10.1); CHLORIDE 107 mmol/L (98-107)
[2019-05-26 05:54] LABS: ALANINE AMINOTRANSFERASE 18 U/L (12-78); ALKALINE PHOSPHATASE 72 U/L (45-117); BILIRUBIN,TOTAL 0.2 mg/dL (0.2-1.0); TOTAL PROTEIN 6.2 g/dL (6.4-8.2)
[2019-05-26] MEDS: RILPIVIRINE PO SCH (07:02)
[2019-05-26] MEDS: RITONAVIR 100 MG PO SCH (07:02)
[2019-05-26] MEDS: DOLUTEGRAVIR PO SCH (07:02)
[2019-05-26] MEDS: ASPIRIN 81 MG TABLET CHEW PO SCH (08:34)
[2019-05-26 08:35] VITALS: BP 124/80
[2019-05-26] MEDS: GABAPENTIN 100 MG CAPSULE PO SCH ×2 (08:35→17:25)
[2019-05-26] MEDS: DARUNAVIR 800 MG TABLET PO SCH (08:37)
[2019-05-26] MEDS ORDERED: LISINOPRIL 10 MG TABLET PO SCH (09:00)
[2019-05-26] MEDS ORDERED: REGADENOSON 0.4 MG/5 ML SYRINGE ONE (09:42)
[2019-05-26 10:01] VITALS: BP 109/70
[2019-05-26] MEDS ORDERED: GUAIFENESIN 100 MG/5 ML, 5ML UDC PO PRN (10:30)
[2019-05-26 14:34] VITALS: BP 112/74
[2019-05-26] MEDS ORDERED: ASPI-515 PO (17:10)
[2019-05-26] MEDS ORDERED: CARV12.543 PO (17:10)
[2019-05-26] MEDS ORDERED: ATOR40TA78 PO (17:10)
[2019-05-26] MEDS ORDERED: LISI-167 PO (17:10)
[2019-05-26] MEDS ORDERED: GUAIFENESIN 100 MG/5 ML, 10ML UDC ONE (17:29)
[2019-05-26] MEDS ORDERED: CARVEDILOL 12.5 MG TABLET PO SCH (18:00)
== END 2019-05-26 18:07 | disposition home or self-care (01) | DRG 977 ==
LOC: ED 16:52 → EDIP 16:53 → ED 17:24 → 4WST 18:03
PROVIDERS: ADMIT Internal Medicine; ATTEND Internal Medicine
PROC: 30233N1 Transfusion of Nonautologous Red Blood Cells into Peripheral Vein, Percutaneous Approach (ICD-10-PCS; 2019-05-23)
PROC: 5A1D70Z Performance of Urinary Filtration, Intermittent, Less than 6 Hours Per Day (ICD-10-PCS; principal; 2019-05-24)
PROC: 5A1D70Z Performance of Urinary Filtration, Intermittent, Less than 6 Hours Per Day (ICD-10-PCS; 2019-05-26)
DX: B20 Human immunodeficiency virus [HIV] disease (principal); I50.23 Acute on chronic systolic (congestive) heart failure; E43 Unspecified severe protein-calorie malnutrition; N18.6 End stage renal disease; J96.01 Acute respiratory failure with hypoxia; I42.9 Cardiomyopathy, unspecified; E87.2 Acidosis; I13.2 Hypertensive heart and chronic kidney disease with heart failure and with stage 5 chronic kidney disease, or end stage renal disease; I31.3 Pericardial effusion (noninflammatory); N17.9 Acute kidney failure, unspecified; D63.1 Anemia in chronic kidney disease; D70.9 Neutropenia, unspecified; F14.90 Cocaine use, unspecified, uncomplicated; N25.0 Renal osteodystrophy; Z82.5 Family history of asthma and other chronic lower respiratory diseases; Z87.891 Personal history of nicotine dependence; Z83.3 Family history of diabetes mellitus; Z99.2 Dependence on renal dialysis; Z68.23 Body mass index [BMI] 23.0-23.9, adult; Z91.018 Allergy to other foods
CPT/HCPCS: 36415; 36430; 71045; 71250; 78452; 80048; 80053; 82040; 82272; 83605; 83735; 83880; 84100; 84484; 85025; 86361; 86705; 86706; 86850; 86900; 86923; 87040; 87340; 90935; 93005; 93017; 99285; G0378; J0881; J1644; J2785; A9502; C9898; J2270; P9016

== ENCOUNTER 2019-06-18 13:30 | Inpatient (IN) | payer MEDICAID ==
[~2019-06-18] VITALS: Ht 172.7 cm; Wt 80.7 kg
[2019-06-20 08:40] VITALS: BP 118/86
== END 2019-06-20 12:33 | disposition home or self-care (01) | DRG 194 ==
LOC: ED 14:18 → EDIP 15:13 → 5SO 16:13 → DCLOUNGE 06-20 12:24
PROVIDERS: ADMIT Family Medicine; ATTEND Internal Medicine
PROC: 5A1D70Z Performance of Urinary Filtration, Intermittent, Less than 6 Hours Per Day (ICD-10-PCS; principal; 2019-06-18)
PROC: 5A1D70Z Performance of Urinary Filtration, Intermittent, Less than 6 Hours Per Day (ICD-10-PCS; 2019-06-19)
DX: I13.2 Hypertensive heart and chronic kidney disease with heart failure and with stage 5 chronic kidney disease, or end stage renal disease (principal); E43 Unspecified severe protein-calorie malnutrition; I42.9 Cardiomyopathy, unspecified; N18.6 End stage renal disease; E87.5 Hyperkalemia; I50.9 Heart failure, unspecified; D64.9 Anemia, unspecified; D70.9 Neutropenia, unspecified; E78.5 Hyperlipidemia, unspecified; F14.10 Cocaine abuse, uncomplicated; F17.200 Nicotine dependence, unspecified, uncomplicated; N25.0 Renal osteodystrophy; Z99.2 Dependence on renal dialysis; Z91.19 Patient's noncompliance with other medical treatment and regimen; Z83.3 Family history of diabetes mellitus; Z91.15 Patient's noncompliance with renal dialysis; Z68.27 Body mass index [BMI] 27.0-27.9, adult; Z91.018 Allergy to other foods; Z71.51 Drug abuse counseling and surveillance of drug abuser; Z71.6 Tobacco abuse counseling
CPT/HCPCS: 36415; 70450; 71045; 80048; 80053; 80061; 80307; 82040; 82962; 84484; 85025; 90935; 93005; 99285; G0378; J0881; J1644; J2310

== ENCOUNTER 2019-09-03 11:22 | Inpatient (IN) | payer MEDICAID ==
[~2019-09-03] VITALS: Ht 190.5 cm; Wt 71.2 kg
[~2019-09-03 11:22] MED LIST changes: +ACID1TAB7 PO; +APIX2.5T PO; +ASPI-515 PO; +ATOR20TA86 PO; +ATOR40TA78 PO; +CARV12.52 PO; +CARV12.543 PO; +GABA-826 PO; +HYDR-3341 PO; +LISI-167 PO; +LISI-420 PO; +SEVE800T8 PO; +SODI650T PO; +VANC125C3 PO
[2019-09-03] MEDS ORDERED: NITROGLYCERIN/D5W PMX 250 ML IV SCH (11:24)
[2019-09-03] MEDS ORDERED: SODIUM CHLORIDE FLUSH 10ML SYR IVF ONE (11:30)
--- NOTE | 2019-09-03 11:35 | NUR ---
PT BIB [facility] FROM HIS [facility] FOR C/O SOB, CHEST PAIN AND LLQ PAIN SINCE LAST NIGHT. PER EMS, PT MISSED HIS DIALYSIS APPT'S THIS TUES & THUR. HX RENAL FAILURE & HEART FAILURE. PT TACHYPNEIC & TACHYCARDIC, HR 100s. EMS UNABLE TO OBTAIN SPO2 READING; ETCO2 20. IV PLACED TO R EJ MANAGER MONEY & PT WAS MEDICATED WITH ZOFRAN 4MG. PT ARRIVES TO ED A&OX4. HYPERVENTILATING D/T PAIN & ANXIETY. ERP AT BS IMMEDIATELY. EKG DONE AT BS.
[2019-09-03] MEDS ORDERED: MORPHINE SULFATE 4 MG/ML, 1ML ONE (11:54)
[2019-09-03] MEDS ORDERED: NITROGLYCERIN/D5W PMX 250 ML ONE (11:55)
[2019-09-03] MEDS ORDERED: MORPHINE SULFATE 4 MG/ML, 1ML IVPush ONE (12:00)
--- NOTE | 2019-09-03 12:01 | NUR ---
PT MEDICATED FOR LLQ ABD PAIN AND CHEST PAIN PER [facility]. UNDERSTANDS PLAN FOR ADMISSION.
[2019-09-03 12:07] LABS: ALANINE AMINOTRANSFERASE 12 U/L (12-78); ALBUMIN 2.8 g/dL (3.4-5.0); ANION GAP 20 mmol/L (5-15); CALCIUM 7.8 mg/dL (8.5-10.1); CHLORIDE 102 mmol/L (98-107)
--- NOTE | 2019-09-03 12:08 | NUR ---
CONTACT ISOLATION IN PLACE FOR HX ESBL.
[2019-09-03 12:09] LABS: MEAN CORPUSCULAR HEMOGLOBIN 29.3 pg (27.5-34.5); MEAN CORPUSCULAR HGB CONC 31.7 g/dL (33.2-36.2); MEAN CORPUSCULAR VOLUME 92.3 fL (81-97); MEAN PLATELET VOLUME 9.2 fL (7.4-10.4); PLATELET COUNT 101 x10^3/uL (130-400); RED BLOOD COUNT 2.99 x10^6/uL (4.38-5.82); RED CELL DISTRIBUTION WIDTH 18.5 % (9.4-14.8)
[2019-09-03 12:20] LABS: MD YES
[2019-09-03 12:23] LABS: ALKALINE PHOSPHATASE 93 U/L (45-117); BILIRUBIN,TOTAL 0.5 mg/dL (0.2-1.0); NRBC % (MANUAL) 1 % (0-1); TOTAL PROTEIN 7.9 g/dL (6.4-8.2)
[2019-09-03 12:24] LABS: ANISOCYTOSIS 1+; LYMPH#(MANUAL) 0.68 x10^3/uL (1-3.4); LYMPHS% (MANUAL) 26 % (22-44); MONOS#(MANUAL) 0.16 x10^3/uL (0.3-2.7); MONOS% (MANUAL) 6 % (2-9); SEG#(MANUAL) 1.77 x10^3/uL (1.8-6.8); SEGS% (MANUAL) 68 % (42-75)
[2019-09-03 12:25] LABS: HYPOCHROMIA 1+; POLYCHROMASIA 1+
[2019-09-03 12:26] LABS: <PLATELET ESTIMATE> DECREASED; LARGE PLATELETS 1+; OVALOCYTES 1+
--- NOTE | 2019-09-03 12:58 | NUR ---
PT REPORT TO SAI GRANADO FOR ROOM 401
[2019-09-03] MEDS ORDERED: ACETAMINOPHEN 325 MG TABLET PO PRN (13:00)
[2019-09-03] MEDS ORDERED: hydrALAzine 20 MG/ML, 1ML IVPush PRN (13:00)
[2019-09-03] MEDS ORDERED: GUAIFENESIN/DM 200-20MG, 10ML UDC PO PRN (13:00)
[2019-09-03] MEDS ORDERED: BUTALB/APAP/CAFFEINE 50MG/325MG/40MG PO PRN (13:00)
[2019-09-03] MEDS ORDERED: POLYETHYLENE GLYCOL 17 GM PACKET PO PRN (13:00)
[2019-09-03] MEDS ORDERED: ONDANSETRON ODT 4 MG PO PRN (13:00)
--- NOTE | 2019-09-03 13:02 | NUR ---
PT DOSING; EASILY AWAKENED. C/O PAIN AT EJ SITE, PAIN TO LOWER ABD. DENIES CP CURRENTLY. NTG INFUSING AT 3ML/HR VIA PUMP.
[2019-09-03 13:57] VITALS: BP 147/111
[2019-09-03] MEDS: NICOTINE 21 MG/24 HR PATCH.TD24 TD SCH (14:18)
[2019-09-03] MEDS: CALCIUM CARBONATE 500 MG TAB.CHEW PO SCH ×2 (18:33→20:33)
[2019-09-03 18:56] VITALS: BP 131/92
[2019-09-03] MEDS: TRAZODONE 50MG TABLET PO PRN (20:33)
[2019-09-04 00:36] VITALS: BP 139/94
[2019-09-04 06:04] LABS: MEAN CORPUSCULAR HGB CONC 32.5 g/dL (33.2-36.2); MEAN CORPUSCULAR VOLUME 92.2 fL (81-97); MEAN PLATELET VOLUME 8.7 fL (7.4-10.4); PLATELET COUNT 114 x10^3/uL (130-400); RED CELL DISTRIBUTION WIDTH 18.1 % (9.4-14.8)
[2019-09-04 06:07] LABS: CHLORIDE 102 mmol/L (98-107)
[2019-09-04 06:13] LABS: ALANINE AMINOTRANSFERASE 18 U/L (12-78); ALBUMIN 2.5 g/dL (3.4-5.0); ALKALINE PHOSPHATASE 83 U/L (45-117); ANION GAP 16 mmol/L (5-15); BILIRUBIN,TOTAL 0.4 mg/dL (0.2-1.0); CALCIUM 7.8 mg/dL (8.5-10.1); TOTAL PROTEIN 7.3 g/dL (6.4-8.2)
[2019-09-04] MEDS: ONDANSETRON 2MG/ML, 2ML IVPush PRN ×2 (06:18→14:25)
[2019-09-04 07:17] LABS: MD YES
[2019-09-04 07:20] LABS: BASOS#(MANUAL) 0.02 x10^3/uL (0-0.1); BASOS% (MANUAL) 1 % (0-1); EOS#(MANUAL) 0.02 x10^3/uL (0.0-0.4); EOS% (MANUAL) 1 % (1-7); LYMPH#(MANUAL) 0.42 x10^3/uL (1-3.4); LYMPHS% (MANUAL) 21 % (22-44); MONOS#(MANUAL) 0.12 x10^3/uL (0.3-2.7); MONOS% (MANUAL) 6 % (2-9); NRBC % (MANUAL) 1 % (0-1); SEG#(MANUAL) 1.42 x10^3/uL (1.8-6.8); SEGS% (MANUAL) 71 % (42-75)
[2019-09-04 07:21] LABS: ANISOCYTOSIS 1+; HYPOCHROMIA 1+; OVALOCYTES 1+; POLYCHROMASIA 1+
[2019-09-04 07:22] LABS: <PLATELET ESTIMATE> DECREASED; LARGE PLATELETS 1+; TEAR DROPS 1+
[2019-09-04 07:30] VITALS: BP 124/93
[2019-09-04] MEDS ORDERED: PROMETHAZINE 25 MG/ML, 1ML IM PRN (08:30)
[2019-09-04] MEDS: CALCIUM CARBONATE 500 MG TAB.CHEW PO SCH ×3 (08:32→20:05)
[2019-09-04] MEDS ORDERED: DARBEPOETIN 100 MCG/ML SQ SCH (09:30)
[2019-09-04 14:13] VITALS: BP 124/95
[2019-09-04] MEDS: NICOTINE 21 MG/24 HR PATCH.TD24 TD SCH (14:26)
[2019-09-04] MEDS: APIXABAN 2.5 MG TABLET PO SCH (15:22)
[2019-09-04] MEDS: LACTOBACILLUS CHEW TABLET PO SCH ×2 (15:22→20:05)
[2019-09-04] MEDS: GABAPENTIN 100 MG CAPSULE PO PRN (15:22)
[2019-09-04] MEDS ORDERED: LOPERAMIDE 2 MG CAPSULE PO PRN (15:30)
[2019-09-04] MEDS: CARVEDILOL 12.5 MG TABLET PO SCH (17:18)
[2019-09-04 18:36] VITALS: BP 132/88
[2019-09-04] MEDS ORDERED: ATORVASTATIN 20 MG TABLET PO SCH (21:00)
[2019-09-04] MEDS: TRAZODONE 50MG TABLET PO PRN (22:13)
[2019-09-05 00:40] VITALS: BP 126/82
[2019-09-05 05:32] VITALS: BP 121/84
[2019-09-05] MEDS: CARVEDILOL 12.5 MG TABLET PO SCH (05:33)
[2019-09-05] MEDS: APIXABAN 2.5 MG TABLET PO SCH (05:33)
[2019-09-05 06:24] VITALS: BP 115/80
[2019-09-05] MEDS: ONDANSETRON 2MG/ML, 2ML IVPush PRN (08:18)
[2019-09-05] MEDS: GABAPENTIN 100 MG CAPSULE PO PRN (08:19)
[2019-09-05] MEDS: LACTOBACILLUS CHEW TABLET PO SCH ×2 (08:19→16:00)
[2019-09-05] MEDS ORDERED: RILPIVIRINE HOMEMEDPO SCH (09:00)
[2019-09-05] MEDS ORDERED: RITONAVIR 100 MG TABLET PO SCH (09:00)
[2019-09-05] MEDS ORDERED: DOLUTEGRAVIR HOMEMEDPO SCH (09:00)
[2019-09-05] MEDS ORDERED: DARUNAVIR 800 MG TABLET PO SCH (09:00)
[2019-09-05] MEDS ORDERED: ASPIRIN 81 MG TABLET EC PO SCH (09:00)
[2019-09-05] MEDS ORDERED: SODIUM BICARBONATE 650 MG TABLET PO SCH (09:00)
[2019-09-05 09:18] LABS: ANION GAP 14 mmol/L (5-15); CALCIUM 8.2 mg/dL (8.5-10.1); CHLORIDE 101 mmol/L (98-107); MEAN CORPUSCULAR HEMOGLOBIN 29.6 pg (27.5-34.5); MEAN CORPUSCULAR HGB CONC 32.1 g/dL (33.2-36.2); MEAN CORPUSCULAR VOLUME 92.3 fL (81-97); MEAN PLATELET VOLUME 8.6 fL (7.4-10.4); PLATELET COUNT 121 x10^3/uL (130-400); RED BLOOD COUNT 2.95 x10^6/uL (4.38-5.82); RED CELL DISTRIBUTION WIDTH 18.6 % (9.4-14.8)
[2019-09-05 09:19] LABS: ALBUMIN 2.6 g/dL (3.4-5.0)
[2019-09-05 09:27] LABS: MD YES
[2019-09-05 09:30] LABS: BASOS#(MANUAL) 0.02 x10^3/uL (0-0.1); BASOS% (MANUAL) 1 % (0-1); EOS#(MANUAL) 0.02 x10^3/uL (0.0-0.4); EOS% (MANUAL) 1 % (1-7); MONOS#(MANUAL) 0.13 x10^3/uL (0.3-2.7); MONOS% (MANUAL) 7 % (2-9)
[2019-09-05 09:31] LABS: ANISOCYTOSIS 1+; HYPOCHROMIA 1+; LYMPH#(MANUAL) 0.48 x10^3/uL (1-3.4); LYMPHS% (MANUAL) 25 % (22-44); OVALOCYTES 1+; POLYCHROMASIA 1+; SEG#(MANUAL) 1.25 x10^3/uL (1.8-6.8); SEGS% (MANUAL) 66 % (42-75); TEAR DROPS 1+
[2019-09-05 09:32] LABS: <PLATELET ESTIMATE> DECREASED; <PLT MORPHOLOGY> NORMAL PLT MORPH
[2019-09-05 13:09] VITALS: BP 106/77
[2019-09-05] MEDS: ALUMINUM HYDROXIDE 64 MG/ML ORAL.SUSP PO SCH ×2 (14:18→16:00)
[2019-09-05] MEDS: NICOTINE 21 MG/24 HR PATCH.TD24 TD SCH (14:19)
== END 2019-09-05 16:47 | disposition home or self-care (01) | DRG 469 ==
LOC: ED 11:47 → EDIP 12:36 → 4WST 13:19
PROVIDERS: ADMIT Hospitalist; ATTEND Hospitalist
PROC: 5A1D70Z Performance of Urinary Filtration, Intermittent, Less than 6 Hours Per Day (ICD-10-PCS; 2019-09-03)
PROC: 5A1D70Z Performance of Urinary Filtration, Intermittent, Less than 6 Hours Per Day (ICD-10-PCS; principal; 2019-09-05)
DX: N17.9 Acute kidney failure, unspecified (principal); J96.00 Acute respiratory failure, unspecified whether with hypoxia or hypercapnia; I13.2 Hypertensive heart and chronic kidney disease with heart failure and with stage 5 chronic kidney disease, or end stage renal disease; E43 Unspecified severe protein-calorie malnutrition; I42.9 Cardiomyopathy, unspecified; E83.39 Other disorders of phosphorus metabolism; E87.1 Hypo-osmolality and hyponatremia; E87.2 Acidosis; N18.6 End stage renal disease; Z68.1 Body mass index [BMI] 19.9 or less, adult; Z91.018 Allergy to other foods; F14.10 Cocaine abuse, uncomplicated; K52.9 Noninfective gastroenteritis and colitis, unspecified; Z72.0 Tobacco use; Z91.19 Patient's noncompliance with other medical treatment and regimen; Z99.2 Dependence on renal dialysis; I50.22 Chronic systolic (congestive) heart failure
CPT/HCPCS: 36415; 71045; 74021; 80053; 80069; 83735; 83880; 84100; 85025; 90935; 93005; 96374; G0378; J0881; J2405; J2550; Q0162; J2270

== ENCOUNTER 2020-07-02 13:38 | Inpatient (IN) | payer MEDICAID ==
[~2020-07-02] VITALS: Ht 190.5 cm; Wt 75.0 kg
[2020-07-02] MEDS ORDERED: SODIUM CHLORIDE FLUSH 10ML SYR IVF ONE (14:00)
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
--- NOTE | 2020-07-02 14:29 | NUR ---
USPIV placed, blood drawn and given to laborer adjustable steel joist.
[2020-07-02 14:46] LABS: ALANINE AMINOTRANSFERASE 24 U/L (12-78); ALBUMIN 2.4 g/dL (3.4-5.0); ANION GAP 10 mmol/L (5-15); CALCIUM 8.2 mg/dL (8.5-10.1); CHLORIDE 112 mmol/L (98-107)
[2020-07-02 14:47] LABS: MEAN CORPUSCULAR HEMOGLOBIN 29.6 pg (27.5-34.5); MEAN CORPUSCULAR HGB CONC 30.5 g/dL (33.2-36.2); MEAN PLATELET VOLUME 10.6 fL (7.4-10.4); PLATELET COUNT 129 x10^3/uL (130-400); RED BLOOD COUNT 2.92 x10^6/uL (4.38-5.82); RED CELL DISTRIBUTION WIDTH 22.2 % (9.4-14.8)
[2020-07-02 15:04] LABS: ALKALINE PHOSPHATASE 254 U/L (45-117); BILIRUBIN,TOTAL 0.5 mg/dL (0.2-1.0); TOTAL PROTEIN 7.8 g/dL (6.4-8.2)
[2020-07-02 15:16] LABS: MD YES
--- NOTE | 2020-07-02 15:17 | NUR ---
TASK RN NOTE: PT BACK FROM BATHROOM AND IN BED, MONITORS ALL IN PLACE. ADDITIONAL BLANKET APPLIED AND HOB TO LEVEL OF COMFORT. PT WITH CUP OF ICE. ERMD AWARE OF PT'S RETURN TO BED FOR HIS FURTHER ASSESSMENT.
--- NOTE | 2020-07-02 15:35 | NUR ---
Ambulated to bathroom independently, steady gait
[2020-07-02 15:57] LABS: BAND#(MANUAL) 0.05 x10^3/uL; BANDS%(MANUAL) 1 % (0-7); EOS#(MANUAL) 0.05 x10^3/uL (0.0-0.4); EOS% (MANUAL) 1 % (1-7); LYMPH#(MANUAL) 0.55 x10^3/uL (1-3.4); LYMPHS% (MANUAL) 12 % (22-44); MONOS#(MANUAL) 0.46 x10^3/uL (0.3-2.7); MONOS% (MANUAL) 10 % (2-9); SEGS% (MANUAL) 76 % (42-75)
[2020-07-02 15:59] LABS: ANISOCYTOSIS 2+
[2020-07-02 16:00] LABS: OVALOCYTES 1+; POLYCHROMASIA 1+
[2020-07-02 16:03] LABS: <PLATELET ESTIMATE> DECREASED; LARGE PLATELETS 1+; TEAR DROPS 1+
--- NOTE | 2020-07-02 16:06 | NUR ---
[facility] at bedside.
[2020-07-02] MEDS ORDERED: LIDOCAINE/PRILOCAINE CRM W/TEG 5GM TP PRN (16:30)
[2020-07-02] MEDS ORDERED: morphine SULFATE 10 MG/ML, 1ML IVPush PRN (16:30)
[2020-07-02] MEDS ORDERED: hydrALAzine 20 MG/ML, 1ML IVPush PRN (16:30)
--- NOTE | 2020-07-02 16:50 | NUR ---
Pt had one incident of bowel incontinence. Cleaned pt and changed linens. Mepilex applied to pressure ulcer on buttocs
--- NOTE | 2020-07-02 17:12 | NUR ---
Attempted report to floor at 1712
[2020-07-02 18:00] VITALS: BP 120/77
[2020-07-02] MEDS: APIXABAN 2.5 MG TABLET PO SCH (18:46)
[2020-07-02] MEDS: AZITHROMYCIN 600 MG TABLET PO SCH (18:47)
[2020-07-02] MEDS: CARVEDILOL 25 MG TABLET PO SCH (18:47)
[2020-07-02] MEDS: HYDROcodone/APAP 5/325 TABLET PO PRN (18:47)
[2020-07-02 22:05] LABS: CLOSTRIDIUM DIFFICILE ANTIGEN POSITIVE
[2020-07-02 22:06] LABS: CLOSTRIDIUM DIFFICILE TOXIN NEGATIVE (Negative)
[2020-07-02] MEDS: ATORVASTATIN 20 MG TABLET PO SCH (22:42)
[2020-07-02] MEDS: NYSTATIN 500,000 UNITS/5 ML UDC PO SCH (22:42)
[2020-07-03 00:51] VITALS: BP 104/58
[2020-07-03 05:50] VITALS: BP 102/68
[2020-07-03] MEDS: NYSTATIN 500,000 UNITS/5 ML UDC PO SCH ×4 (05:53→22:16)
[2020-07-03] MEDS: CARVEDILOL 25 MG TABLET PO SCH ×2 (05:53→22:15)
[2020-07-03] MEDS: APIXABAN 2.5 MG TABLET PO SCH ×2 (05:53→22:21)
[2020-07-03 05:55] LABS: MEAN CORPUSCULAR HEMOGLOBIN 29.3 pg (27.5-34.5); MEAN PLATELET VOLUME 10.4 fL (7.4-10.4); PLATELET COUNT 122 x10^3/uL (130-400); RED BLOOD COUNT 2.82 x10^6/uL (4.38-5.82); RED CELL DISTRIBUTION WIDTH 22.5 % (9.4-14.8)
[2020-07-03 06:00] LABS: CHLORIDE 110 mmol/L (98-107)
[2020-07-03 06:18] LABS: MD YES
[2020-07-03 06:19] LABS: MEAN CORPUSCULAR HGB CONC 29.9 g/dL (33.2-36.2)
[2020-07-03 06:20] LABS: BAND#(MANUAL) 0.08 x10^3/uL; BANDS%(MANUAL) 2 % (0-7); EOS#(MANUAL) 0.08 x10^3/uL (0.0-0.4); EOS% (MANUAL) 2 % (1-7); SEG#(MANUAL) 3.08 x10^3/uL (1.8-6.8); SEGS% (MANUAL) 79 % (42-75)
[2020-07-03 06:21] LABS: ANISOCYTOSIS 2+; HYPOCHROMIA 2+; LYMPH#(MANUAL) 0.39 x10^3/uL (1-3.4); LYMPHS% (MANUAL) 10 % (22-44); MONOS#(MANUAL) 0.27 x10^3/uL (0.3-2.7); MONOS% (MANUAL) 7 % (2-9); OVALOCYTES 1+; POLYCHROMASIA 1+
[2020-07-03 06:22] LABS: <PLATELET ESTIMATE> DECREASED; LARGE PLATELETS 1+; TEAR DROPS 1+
[2020-07-03 06:24] LABS: % IRON SATURATION 12 % (20-55); ALBUMIN 2.1 g/dL (3.4-5.0); ANION GAP 7 mmol/L (5-15); CALCIUM 8.1 mg/dL (8.5-10.1); CREATININE 8.37 mg/dL (0.7-1.3); IRON LEVEL 25 mcg/dL (65-175); TOTAL IRON BINDING CAPACITY 209 mcg/dL (250-450)
[2020-07-03] MEDS ORDERED: LISINOPRIL 10 MG TABLET PO SCH (09:00)
[2020-07-03] MEDS: HYDROcodone/APAP 5/325 TABLET PO PRN ×2 (11:34→22:25)
[2020-07-03] MEDS: SULFAMETH./TRIMETHOPRIM DS 800MG/160MG TABLET PO SCH (11:35)
[2020-07-03] MEDS: DOLUTEGRAVIR 50MG TAB PO SCH (11:35)
[2020-07-03] MEDS: DARUNAVIR 800 MG TABLET PO SCH (11:35)
[2020-07-03] MEDS: SODIUM BICARBONATE 650 MG TABLET PO SCH (11:36)
[2020-07-03] MEDS: ASPIRIN 81 MG TABLET EC PO SCH (11:36)
[2020-07-03] MEDS: LAMIVUDINE 10 MG/ML PO SCH (11:36)
[2020-07-03] MEDS: RITONAVIR 100 MG TABLET PO SCH (11:36)
[2020-07-03 12:40] VITALS: BP 121/71
[2020-07-03 12:58] LABS: OCCULT BLOOD NEGATIVE (NEGATIVE)
[2020-07-03 20:10] VITALS: BP 129/68
[2020-07-03 22:14] VITALS: BP 90/56
[2020-07-03] MEDS: DARBEPOETIN 60 MCG/ML SQ SCH (22:17)
[2020-07-03] MEDS: ATORVASTATIN 20 MG TABLET PO SCH (22:17)
[2020-07-03] MEDS: GABAPENTIN 100 MG CAPSULE PO PRN (22:25)
[2020-07-04 00:28] VITALS: BP 122/78
[2020-07-04] MEDS: NYSTATIN 500,000 UNITS/5 ML UDC PO SCH ×4 (05:33→21:22)
[2020-07-04 06:02] LABS: CHLORIDE 111 mmol/L (98-107)
[2020-07-04 06:07] LABS: MEAN CORPUSCULAR HEMOGLOBIN 29.6 pg (27.5-34.5); MEAN PLATELET VOLUME 10.3 fL (7.4-10.4); PLATELET COUNT 126 x10^3/uL (130-400); RED BLOOD COUNT 2.97 x10^6/uL (4.38-5.82); RED CELL DISTRIBUTION WIDTH 22.9 % (9.4-14.8)
[2020-07-04 06:14] LABS: ALANINE AMINOTRANSFERASE 23 U/L (12-78); ALBUMIN 2.3 g/dL (3.4-5.0); ALKALINE PHOSPHATASE 240 U/L (45-117); ANION GAP 7 mmol/L (5-15); BILIRUBIN,TOTAL 0.4 mg/dL (0.2-1.0); CALCIUM 8.2 mg/dL (8.5-10.1); CREATININE 6.21 mg/dL (0.7-1.3); TOTAL PROTEIN 7.3 g/dL (6.4-8.2)
[2020-07-04 06:55] LABS: MD YES
[2020-07-04 06:56] LABS: MEAN CORPUSCULAR HGB CONC 29.8 g/dL (33.2-36.2)
[2020-07-04 07:02] LABS: BAND#(MANUAL) 0.28 x10^3/uL; BANDS%(MANUAL) 7 % (0-7); EOS#(MANUAL) 0.04 x10^3/uL (0.0-0.4); EOS% (MANUAL) 1 % (1-7); LYMPH#(MANUAL) 0.36 x10^3/uL (1-3.4); LYMPHS% (MANUAL) 9 % (22-44); METAMYELOCYTES# (MANUAL) 0.04 x10^3/uL (0-0); METAMYELOCYTES% (MANUAL) 1 % (0-1); MONOS#(MANUAL) 0.24 x10^3/uL (0.3-2.7); MONOS% (MANUAL) 6 % (2-9); SEG#(MANUAL) 3.04 x10^3/uL (1.8-6.8); SEGS% (MANUAL) 76 % (42-75)
[2020-07-04 07:03] LABS: ANISOCYTOSIS 2+; HYPOCHROMIA 1+; OVALOCYTES 1+; POLYCHROMASIA 1+; TEAR DROPS 1+
[2020-07-04 07:04] LABS: <PLATELET ESTIMATE> DECREASED; LARGE PLATELETS 1+
[2020-07-04 07:34] VITALS: BP 124/77
[2020-07-04] MEDS: ASPIRIN 81 MG TABLET EC PO SCH (09:00)
[2020-07-04] MEDS: APIXABAN 2.5 MG TABLET PO SCH ×2 (09:00→21:00)
[2020-07-04] MEDS: RITONAVIR 100 MG TABLET PO SCH (09:00)
[2020-07-04] MEDS: VANCOMYCIN 50 MG/ML ORAL SUSP PO SCH ×3 (09:09→19:52)
[2020-07-04] MEDS: SULFAMETH./TRIMETHOPRIM DS 800MG/160MG TABLET PO SCH (09:10)
[2020-07-04] MEDS: DOLUTEGRAVIR 50MG TAB PO SCH (09:10)
[2020-07-04] MEDS: DARUNAVIR 800 MG TABLET PO SCH (09:10)
[2020-07-04] MEDS: LISINOPRIL 10 MG TABLET PO SCH (09:10)
[2020-07-04] MEDS: LAMIVUDINE 10 MG/ML PO SCH (09:11)
[2020-07-04] MEDS: SODIUM BICARBONATE 650 MG TABLET PO SCH (09:11)
[2020-07-04] MEDS: CARVEDILOL 25 MG TABLET PO SCH ×2 (09:11→17:16)
[2020-07-04] MEDS: CHOLESTYRAMINE LIGHT 4GM PACKET PO SCH ×3 (09:12→21:00)
[2020-07-04] MEDS: GABAPENTIN 100 MG CAPSULE PO PRN ×2 (10:51→21:22)
[2020-07-04] MEDS: HYDROcodone/APAP 5/325 TABLET PO PRN ×2 (10:52→21:22)
[2020-07-04] MEDS: IRON SUCROSE COMPLEX 100MG/5ML IV SCH (10:53)
[2020-07-04 13:38] VITALS: BP 113/69
[2020-07-04 17:14] VITALS: BP 107/69
[2020-07-04 19:00] VITALS: BP 115/64
[2020-07-04] MEDS: ATORVASTATIN 20 MG TABLET PO SCH (21:22)
[2020-07-05] MEDS: VANCOMYCIN 50 MG/ML ORAL SUSP PO SCH ×4 (00:55→19:57)
[2020-07-05 01:16] VITALS: BP 110/73
[2020-07-05] MEDS: HYDROcodone/APAP 5/325 TABLET PO PRN ×2 (03:17→17:17)
[2020-07-05] MEDS: NYSTATIN 500,000 UNITS/5 ML UDC PO SCH ×4 (05:26→20:32)
[2020-07-05] MEDS: CARVEDILOL 25 MG TABLET PO SCH ×2 (06:00→17:16)
[2020-07-05 06:28] LABS: CHLORIDE 107 mmol/L (98-107)
[2020-07-05 06:42] LABS: ALANINE AMINOTRANSFERASE 23 U/L (12-78); ALBUMIN 2.4 g/dL (3.4-5.0); ALKALINE PHOSPHATASE 250 U/L (45-117); ANION GAP 10 mmol/L (5-15); BILIRUBIN,TOTAL 0.4 mg/dL (0.2-1.0); CALCIUM 8.1 mg/dL (8.5-10.1); TOTAL PROTEIN 7.7 g/dL (6.4-8.2)
[2020-07-05 07:12] VITALS: BP 115/74
[2020-07-05 07:22] LABS: MD YES; MEAN CORPUSCULAR HGB CONC 30.6 g/dL (33.2-36.2); MEAN PLATELET VOLUME 10.8 fL (7.4-10.4); PLATELET COUNT 111 x10^3/uL (130-400); RED BLOOD COUNT 2.75 x10^6/uL (4.38-5.82); RED CELL DISTRIBUTION WIDTH 22.6 % (9.4-14.8)
[2020-07-05 07:25] LABS: <PLATELET ESTIMATE> DECREASED; ANISOCYTOSIS 2+; BAND#(MANUAL) 0.12 x10^3/uL; BANDS%(MANUAL) 3 % (0-7); EOS#(MANUAL) 0.04 x10^3/uL (0.0-0.4); EOS% (MANUAL) 1 % (1-7); HYPOCHROMIA 1+; LARGE PLATELETS 1+; LYMPH#(MANUAL) 0.31 x10^3/uL (1-3.4); LYMPHS% (MANUAL) 8 % (22-44); METAMYELOCYTES% (MANUAL) 5 % (0-1); MONOS#(MANUAL) 0.35 x10^3/uL (0.3-2.7); MONOS% (MANUAL) 9 % (2-9); MYELOCYTES# (MANUAL) 0.04 x10^3/uL (0-0); MYELOCYTES% (MANUAL) 1 % (0-0); OVALOCYTES 1+; POLYCHROMASIA 1+; SEG#(MANUAL) 2.85 x10^3/uL (1.8-6.8); SEGS% (MANUAL) 73 % (42-75); TEAR DROPS 1+
[2020-07-05] MEDS: LISINOPRIL 10 MG TABLET PO SCH (08:22)
[2020-07-05] MEDS: DARUNAVIR 800 MG TABLET PO SCH (08:39)
[2020-07-05] MEDS: SODIUM BICARBONATE 650 MG TABLET PO SCH (08:39)
[2020-07-05] MEDS: SULFAMETH./TRIMETHOPRIM DS 800MG/160MG TABLET PO SCH (08:39)
[2020-07-05] MEDS: RITONAVIR 100 MG TABLET PO SCH (08:40)
[2020-07-05] MEDS: LAMIVUDINE 10 MG/ML PO SCH (08:40)
[2020-07-05] MEDS: DOLUTEGRAVIR 50MG TAB PO SCH (08:40)
[2020-07-05] MEDS: CHOLESTYRAMINE LIGHT 4GM PACKET PO SCH ×3 (08:40→20:32)
[2020-07-05] MEDS: APIXABAN 2.5 MG TABLET PO SCH ×2 (08:43→20:32)
[2020-07-05] MEDS: ASPIRIN 81 MG TABLET EC PO SCH (08:43)
[2020-07-05] MEDS: IRON SUCROSE COMPLEX 100MG/5ML IV SCH (08:43)
[2020-07-05 12:07] VITALS: BP 121/78
[2020-07-05 17:15] VITALS: BP 144/87
[2020-07-05] MEDS: GABAPENTIN 100 MG CAPSULE PO PRN (17:16)
[2020-07-05 20:29] VITALS: BP 124/72
[2020-07-05] MEDS: ATORVASTATIN 20 MG TABLET PO SCH (20:32)
[2020-07-06] MEDS: VANCOMYCIN 50 MG/ML ORAL SUSP PO SCH ×4 (01:40→20:24)
[2020-07-06 02:34] VITALS: BP 101/67
[2020-07-06 05:16] LABS: ALANINE AMINOTRANSFERASE 23 U/L (12-78); ALBUMIN 2.3 g/dL (3.4-5.0); ANION GAP 9 mmol/L (5-15); CALCIUM 7.8 mg/dL (8.5-10.1); CHLORIDE 106 mmol/L (98-107); CREATININE 7.27 mg/dL (0.7-1.3)
[2020-07-06 05:18] LABS: ALKALINE PHOSPHATASE 298 U/L (45-117); BILIRUBIN,TOTAL 0.5 mg/dL (0.2-1.0); TOTAL PROTEIN 7.6 g/dL (6.4-8.2)
[2020-07-06] MEDS: CARVEDILOL 25 MG TABLET PO SCH ×2 (06:26→18:38)
[2020-07-06] MEDS: NYSTATIN 500,000 UNITS/5 ML UDC PO SCH ×4 (06:26→20:24)
[2020-07-06 07:04] LABS: MD YES; MEAN CORPUSCULAR HEMOGLOBIN 30.1 pg (27.5-34.5); MEAN CORPUSCULAR HGB CONC 31.1 g/dL (33.2-36.2); MEAN PLATELET VOLUME 11.4 fL (7.4-10.4); PLATELET COUNT 94 x10^3/uL (130-400); RED BLOOD COUNT 2.69 x10^6/uL (4.38-5.82); RED CELL DISTRIBUTION WIDTH 22.5 % (9.4-14.8)
[2020-07-06 07:06] LABS: BAND#(MANUAL) 0.08 x10^3/uL; BANDS%(MANUAL) 2 % (0-7); LYMPH#(MANUAL) 0.68 x10^3/uL (1-3.4); LYMPHS% (MANUAL) 17 % (22-44); METAMYELOCYTES# (MANUAL) 0.16 x10^3/uL (0-0); METAMYELOCYTES% (MANUAL) 4 % (0-1); MONOS#(MANUAL) 0.24 x10^3/uL (0.3-2.7); MONOS% (MANUAL) 6 % (2-9); SEG#(MANUAL) 2.84 x10^3/uL (1.8-6.8); SEGS% (MANUAL) 71 % (42-75)
[2020-07-06 07:07] LABS: <PLATELET ESTIMATE> DECREASED; ANISOCYTOSIS 2+; HYPOCHROMIA 1+; LARGE PLATELETS 1+; OVALOCYTES 1+; POLYCHROMASIA 1+; TEAR DROPS 1+
[2020-07-06 07:54] VITALS: BP 129/78
[2020-07-06] MEDS: SULFAMETH./TRIMETHOPRIM DS 800MG/160MG TABLET PO SCH (08:54)
[2020-07-06] MEDS: DOLUTEGRAVIR 50MG TAB PO SCH (08:54)
[2020-07-06] MEDS: SODIUM BICARBONATE 650 MG TABLET PO SCH (08:54)
[2020-07-06] MEDS: LISINOPRIL 10 MG TABLET PO SCH (08:55)
[2020-07-06] MEDS: DARUNAVIR 800 MG TABLET PO SCH (08:55)
[2020-07-06] MEDS: CHOLESTYRAMINE LIGHT 4GM PACKET PO SCH ×3 (08:55→20:25)
[2020-07-06] MEDS: ASPIRIN 81 MG TABLET EC PO SCH (08:57)
[2020-07-06] MEDS: APIXABAN 2.5 MG TABLET PO SCH ×2 (08:57→20:26)
[2020-07-06] MEDS: RITONAVIR 100 MG TABLET PO SCH (08:58)
[2020-07-06] MEDS: IRON SUCROSE COMPLEX 100MG/5ML IV SCH (09:00)
[2020-07-06] MEDS: LAMIVUDINE 10 MG/ML PO SCH (10:27)
[2020-07-06] MEDS: GABAPENTIN 100 MG CAPSULE PO PRN ×2 (10:54→20:25)
[2020-07-06] MEDS: HYDROcodone/APAP 5/325 TABLET PO PRN ×2 (10:55→20:25)
[2020-07-06 12:44] VITALS: BP 117/85
[2020-07-06 20:21] VITALS: BP 109/67
[2020-07-06] MEDS: ATORVASTATIN 20 MG TABLET PO SCH (20:25)
[2020-07-07 01:35] VITALS: BP 121/80
[2020-07-07] MEDS: VANCOMYCIN 50 MG/ML ORAL SUSP PO SCH ×4 (03:35→20:23)
[2020-07-07 05:04] VITALS: BP 129/81
[2020-07-07] MEDS: CARVEDILOL 25 MG TABLET PO SCH ×2 (05:05→17:02)
[2020-07-07] MEDS: NYSTATIN 500,000 UNITS/5 ML UDC PO SCH ×4 (05:05→20:20)
[2020-07-07 08:44] VITALS: BP 123/82
[2020-07-07] MEDS: SULFAMETH./TRIMETHOPRIM DS 800MG/160MG TABLET PO SCH (10:22)
[2020-07-07] MEDS: DARUNAVIR 800 MG TABLET PO SCH (10:22)
[2020-07-07] MEDS: LAMIVUDINE 10 MG/ML PO SCH (10:22)
[2020-07-07] MEDS: SODIUM BICARBONATE 650 MG TABLET PO SCH (10:23)
[2020-07-07] MEDS: DOLUTEGRAVIR 50MG TAB PO SCH (10:23)
[2020-07-07] MEDS: ASPIRIN 81 MG TABLET EC PO SCH (10:24)
[2020-07-07] MEDS: RITONAVIR 100 MG TABLET PO SCH (10:25)
[2020-07-07] MEDS: LISINOPRIL 10 MG TABLET PO SCH (10:25)
[2020-07-07] MEDS: APIXABAN 2.5 MG TABLET PO SCH ×2 (10:25→20:19)
[2020-07-07] MEDS: IRON SUCROSE COMPLEX 100MG/5ML IV SCH (12:11)
[2020-07-07] MEDS: CHOLESTYRAMINE LIGHT 4GM PACKET PO SCH ×3 (12:11→20:20)
[2020-07-07] MEDS: HYDROcodone/APAP 5/325 TABLET PO PRN ×2 (12:22→20:19)
[2020-07-07 13:12] VITALS: BP 113/79
[2020-07-07 17:01] VITALS: BP 123/79
[2020-07-07 18:58] VITALS: BP 117/71
[2020-07-07] MEDS: GABAPENTIN 100 MG CAPSULE PO PRN (20:18)
[2020-07-07] MEDS: ATORVASTATIN 20 MG TABLET PO SCH (20:19)
[2020-07-08 02:00] VITALS: BP 110/68
[2020-07-08] MEDS: VANCOMYCIN 50 MG/ML ORAL SUSP PO SCH ×4 (04:11→20:28)
[2020-07-08] MEDS: CARVEDILOL 25 MG TABLET PO SCH ×2 (04:11→17:44)
[2020-07-08] MEDS: NYSTATIN 500,000 UNITS/5 ML UDC PO SCH ×4 (04:11→20:17)
[2020-07-08] MEDS: GABAPENTIN 100 MG CAPSULE PO PRN (04:14)
[2020-07-08] MEDS: HYDROcodone/APAP 5/325 TABLET PO PRN ×3 (04:14→20:58)
[2020-07-08 07:49] VITALS: BP 109/73
[2020-07-08] MEDS: RITONAVIR 100 MG TABLET PO SCH (09:00)
[2020-07-08] MEDS: ASPIRIN 81 MG TABLET EC PO SCH (09:00)
[2020-07-08] MEDS: IRON SUCROSE COMPLEX 100MG/5ML IV SCH (09:00)
[2020-07-08] MEDS: LAMIVUDINE 10 MG/ML PO SCH ×2 (09:00→09:43)
[2020-07-08] MEDS: APIXABAN 2.5 MG TABLET PO SCH ×2 (09:00→20:19)
[2020-07-08] MEDS: CHOLESTYRAMINE LIGHT 4GM PACKET PO SCH ×3 (09:43→20:16)
[2020-07-08] MEDS: SODIUM BICARBONATE 650 MG TABLET PO SCH ×3 (09:44→20:19)
[2020-07-08] MEDS: DOLUTEGRAVIR 50MG TAB PO SCH (09:45)
[2020-07-08] MEDS: DARUNAVIR 800 MG TABLET PO SCH (09:45)
[2020-07-08] MEDS: SULFAMETH./TRIMETHOPRIM DS 800MG/160MG TABLET PO SCH (09:45)
[2020-07-08] MEDS: LISINOPRIL 10 MG TABLET PO SCH (09:48)
[2020-07-08 09:51] LABS: ALBUMIN 2.4 g/dL (3.4-5.0); ANION GAP 12 mmol/L (5-15); CALCIUM 7.8 mg/dL (8.5-10.1); CHLORIDE 109 mmol/L (98-107); CREATININE 9.98 mg/dL (0.7-1.3)
[2020-07-08] MEDS ORDERED: SODIUM BICARBONATE 650 MG TABLET PO ONE (12:00)
[2020-07-08 14:27] VITALS: BP 125/78
[2020-07-08 20:00] VITALS: BP 121/85
[2020-07-08] MEDS: ATORVASTATIN 20 MG TABLET PO SCH (20:28)
[2020-07-09 00:19] VITALS: BP 120/77
[2020-07-09] MEDS: VANCOMYCIN 50 MG/ML ORAL SUSP PO SCH ×4 (03:00→21:10)
[2020-07-09 08:04] VITALS: BP 117/76
[2020-07-09] MEDS: LAMIVUDINE 10 MG/ML PO SCH (08:17)
[2020-07-09] MEDS: CARVEDILOL 25 MG TABLET PO SCH ×2 (08:17→18:00)
[2020-07-09] MEDS: NYSTATIN 500,000 UNITS/5 ML UDC PO SCH ×4 (08:17→20:45)
[2020-07-09] MEDS: LISINOPRIL 10 MG TABLET PO SCH (08:18)
[2020-07-09] MEDS: AZITHROMYCIN 600 MG TABLET PO SCH (08:18)
[2020-07-09] MEDS: SULFAMETH./TRIMETHOPRIM DS 800MG/160MG TABLET PO SCH (08:19)
[2020-07-09] MEDS: SODIUM BICARBONATE 650 MG TABLET PO SCH ×2 (08:20→20:45)
[2020-07-09] MEDS: DOLUTEGRAVIR 50MG TAB PO SCH (08:20)
[2020-07-09] MEDS: CHOLESTYRAMINE LIGHT 4GM PACKET PO SCH ×3 (08:21→20:45)
[2020-07-09] MEDS: DARUNAVIR 800 MG TABLET PO SCH (08:21)
[2020-07-09] MEDS: IRON SUCROSE COMPLEX 100MG/5ML IV SCH (08:22)
[2020-07-09] MEDS: RITONAVIR 100 MG TABLET PO SCH (08:22)
[2020-07-09 13:07] VITALS: BP 117/74
[2020-07-09] MEDS ORDERED: LIDOCAINE 1%, 10ML ONE (14:13)
[2020-07-09] MEDS: HYDROcodone/APAP 5/325 TABLET PO PRN ×2 (17:05→21:10)
[2020-07-09 20:22] VITALS: BP 133/79
[2020-07-09] MEDS: ATORVASTATIN 20 MG TABLET PO SCH (20:45)
[2020-07-10 02:54] VITALS: BP 123/82
[2020-07-10] MEDS: VANCOMYCIN 50 MG/ML ORAL SUSP PO SCH ×4 (03:15→21:34)
[2020-07-10] MEDS: NYSTATIN 500,000 UNITS/5 ML UDC PO SCH ×4 (05:05→21:33)
[2020-07-10] MEDS: CARVEDILOL 25 MG TABLET PO SCH ×2 (05:05→17:32)
[2020-07-10] MEDS: HYDROcodone/APAP 5/325 TABLET PO PRN ×2 (05:06→21:35)
[2020-07-10 06:22] LABS: CHLORIDE 104 mmol/L (98-107)
[2020-07-10 06:44] LABS: ALBUMIN 2.1 g/dL (3.4-5.0); ANION GAP 11 mmol/L (5-15); CALCIUM 7.5 mg/dL (8.5-10.1); CREATININE 8.48 mg/dL (0.7-1.3)
[2020-07-10 08:26] VITALS: BP 108/63
[2020-07-10] MEDS: LISINOPRIL 10 MG TABLET PO SCH ×2 (09:00→09:14)
[2020-07-10] MEDS: DARBEPOETIN 60 MCG/ML SQ SCH (09:11)
[2020-07-10] MEDS: SODIUM BICARBONATE 650 MG TABLET PO SCH ×2 (09:12→21:33)
[2020-07-10] MEDS: LAMIVUDINE 10 MG/ML PO SCH (09:12)
[2020-07-10] MEDS: CHOLESTYRAMINE LIGHT 4GM PACKET PO SCH ×3 (09:13→21:33)
[2020-07-10] MEDS: DARUNAVIR 800 MG TABLET PO SCH (09:15)
[2020-07-10] MEDS: RITONAVIR 100 MG TABLET PO SCH (09:16)
[2020-07-10] MEDS: DOLUTEGRAVIR 50MG TAB PO SCH (09:16)
[2020-07-10] MEDS: SULFAMETH./TRIMETHOPRIM DS 800MG/160MG TABLET PO SCH (09:17)
[2020-07-10 14:11] VITALS: BP 110/61
[2020-07-10 15:43] VITALS: BP 114/69
[2020-07-10 20:08] VITALS: BP 108/60
[2020-07-10] MEDS: ATORVASTATIN 20 MG TABLET PO SCH (21:33)
[2020-07-11 01:05] VITALS: BP 134/75
[2020-07-11] MEDS: VANCOMYCIN 50 MG/ML ORAL SUSP PO SCH ×4 (03:33→20:10)
[2020-07-11 06:30] VITALS: BP 123/82
[2020-07-11] MEDS: CARVEDILOL 25 MG TABLET PO SCH ×2 (06:31→17:18)
[2020-07-11] MEDS: NYSTATIN 500,000 UNITS/5 ML UDC PO SCH ×4 (06:31→20:06)
[2020-07-11 06:37] LABS: CHLORIDE 108 mmol/L (98-107)
[2020-07-11 06:41] LABS: ANION GAP 7 mmol/L (5-15); CALCIUM 7.7 mg/dL (8.5-10.1); CREATININE 6.87 mg/dL (0.7-1.3)
[2020-07-11] MEDS: DARUNAVIR 800 MG TABLET PO SCH (10:24)
[2020-07-11] MEDS: LISINOPRIL 10 MG TABLET PO SCH (10:25)
[2020-07-11] MEDS: DOLUTEGRAVIR 50MG TAB PO SCH (10:25)
[2020-07-11] MEDS: SODIUM BICARBONATE 650 MG TABLET PO SCH ×2 (10:25→20:07)
[2020-07-11] MEDS: SULFAMETH./TRIMETHOPRIM DS 800MG/160MG TABLET PO SCH (10:25)
[2020-07-11] MEDS: RITONAVIR 100 MG TABLET PO SCH (10:25)
[2020-07-11] MEDS: CHOLESTYRAMINE LIGHT 4GM PACKET PO SCH ×3 (10:26→20:06)
[2020-07-11] MEDS: LAMIVUDINE 10 MG/ML PO SCH (10:26)
[2020-07-11] MEDS: GABAPENTIN 100 MG CAPSULE PO PRN (10:40)
[2020-07-11] MEDS: HYDROcodone/APAP 5/325 TABLET PO PRN ×2 (10:40→15:28)
[2020-07-11 15:21] VITALS: BP 102/66
[2020-07-11 17:17] VITALS: BP 118/76
[2020-07-11 19:11] VITALS: BP 106/65
[2020-07-11] MEDS: ATORVASTATIN 20 MG TABLET PO SCH (20:07)
[2020-07-11 20:10] VITALS: BP 105/74
[2020-07-12] VITALS (7 sets, daily range): BP systolic 102–140; BP diastolic 53–87
[2020-07-12] MEDS: VANCOMYCIN 50 MG/ML ORAL SUSP PO SCH ×4 (03:33→20:21)
[2020-07-12] MEDS: NYSTATIN 500,000 UNITS/5 ML UDC PO SCH ×4 (05:09→20:20)
[2020-07-12] MEDS: CARVEDILOL 25 MG TABLET PO SCH ×2 (05:09→16:54)
[2020-07-12 05:42] LABS: ANION GAP 8 mmol/L (5-15); CALCIUM 7.8 mg/dL (8.5-10.1); CHLORIDE 107 mmol/L (98-107); CREATININE 8.38 mg/dL (0.7-1.3)
[2020-07-12] MEDS: LISINOPRIL 10 MG TABLET PO SCH (07:41)
[2020-07-12] MEDS: DARUNAVIR 800 MG TABLET PO SCH (07:42)
[2020-07-12] MEDS: CHOLESTYRAMINE LIGHT 4GM PACKET PO SCH ×3 (07:42→20:21)
[2020-07-12] MEDS: SULFAMETH./TRIMETHOPRIM DS 800MG/160MG TABLET PO SCH (07:42)
[2020-07-12] MEDS: LAMIVUDINE 10 MG/ML PO SCH (07:42)
[2020-07-12] MEDS: DOLUTEGRAVIR 50MG TAB PO SCH (07:42)
[2020-07-12] MEDS: RITONAVIR 100 MG TABLET PO SCH (07:43)
[2020-07-12] MEDS: SODIUM BICARBONATE 650 MG TABLET PO SCH ×2 (07:43→20:21)
[2020-07-12] MEDS: SEVELAMER CARBONATE 800MG TAB PO SCH ×2 (11:51→16:54)
[2020-07-12] MEDS: ATORVASTATIN 20 MG TABLET PO SCH (20:21)
[2020-07-13] VITALS (9 sets, daily range): BP systolic 109–132; BP diastolic 66–84
[2020-07-13] MEDS: VANCOMYCIN 50 MG/ML ORAL SUSP PO SCH ×4 (02:41→20:40)
[2020-07-13] MEDS: NYSTATIN 500,000 UNITS/5 ML UDC PO SCH (05:38)
[2020-07-13] MEDS: CARVEDILOL 25 MG TABLET PO SCH ×2 (05:38→18:04)
[2020-07-13 06:09] LABS: ALBUMIN 2.1 g/dL (3.4-5.0); ANION GAP 8 mmol/L (5-15); CHLORIDE 109 mmol/L (98-107)
[2020-07-13 06:12] LABS: ALANINE AMINOTRANSFERASE 23 U/L (12-78); ALKALINE PHOSPHATASE 264 U/L (45-117); BILIRUBIN,TOTAL 0.1 mg/dL (0.2-1.0); CREATININE 7.11 mg/dL (0.7-1.3); TOTAL PROTEIN 7.2 g/dL (6.4-8.2)
[2020-07-13 06:17] LABS: MEAN CORPUSCULAR HEMOGLOBIN 28.8 pg (27.5-34.5); MEAN PLATELET VOLUME 9.3 fL (7.4-10.4); PLATELET COUNT 161 x10^3/uL (130-400); RED CELL DISTRIBUTION WIDTH 20.3 % (9.4-14.8)
[2020-07-13 06:37] LABS: MD YES
[2020-07-13 06:38] LABS: MEAN CORPUSCULAR HGB CONC 29.7 g/dL (33.2-36.2)
[2020-07-13 06:40] LABS: <PLATELET ESTIMATE> ADEQUATE; ANISOCYTOSIS 2+; BAND#(MANUAL) 0.04 x10^3/uL; BANDS%(MANUAL) 1 % (0-7); HYPOCHROMIA 1+; LYMPH#(MANUAL) 0.32 x10^3/uL (1-3.4); LYMPHS% (MANUAL) 9 % (22-44); METAMYELOCYTES# (MANUAL) 0.04 x10^3/uL (0-0); METAMYELOCYTES% (MANUAL) 1 % (0-1); MONOS#(MANUAL) 0.32 x10^3/uL (0.3-2.7); MONOS% (MANUAL) 9 % (2-9); OVALOCYTES 1+; POLYCHROMASIA 1+; SEG#(MANUAL) 2.88 x10^3/uL (1.8-6.8); SEGS% (MANUAL) 80 % (42-75); TEAR DROPS 1+
[2020-07-13 06:43] LABS: LARGE PLATELETS 1+
[2020-07-13 06:57] LABS: CALCIUM 8.2 mg/dL (8.5-10.1)
[2020-07-13] MEDS: LAMIVUDINE 10 MG/ML PO SCH (08:35)
[2020-07-13] MEDS: SULFAMETH./TRIMETHOPRIM DS 800MG/160MG TABLET PO SCH (08:35)
[2020-07-13] MEDS: CHOLESTYRAMINE LIGHT 4GM PACKET PO SCH ×3 (08:35→20:39)
[2020-07-13] MEDS: SEVELAMER CARBONATE 800MG TAB PO SCH ×3 (08:35→18:04)
[2020-07-13] MEDS: RITONAVIR 100 MG TABLET PO SCH (08:36)
[2020-07-13] MEDS: DOLUTEGRAVIR 50MG TAB PO SCH (08:36)
[2020-07-13] MEDS: DARUNAVIR 800 MG TABLET PO SCH (08:37)
[2020-07-13] MEDS: LISINOPRIL 10 MG TABLET PO SCH (08:38)
[2020-07-13] MEDS: SODIUM BICARBONATE 650 MG TABLET PO SCH ×2 (08:39→20:40)
[2020-07-13] MEDS: HYDROcodone/APAP 5/325 TABLET PO PRN (08:44)
[2020-07-13] MEDS: GABAPENTIN 100 MG CAPSULE PO PRN (08:44)
[2020-07-13 13:22] LABS: CRYPTOSPORIDIUM ANTIGEN Negative (Negative)
[2020-07-13] MEDS: METRONIDAZOLE PMX 500MG/100ML 100 ML IV SCH ×2 (15:05→20:40)
[2020-07-13] MEDS: ATORVASTATIN 20 MG TABLET PO SCH (20:40)
[2020-07-14] VITALS (7 sets, daily range): BP systolic 106–128; BP diastolic 69–91
[2020-07-14] MEDS: METRONIDAZOLE PMX 500MG/100ML 100 ML IV SCH (02:08)
[2020-07-14] MEDS: VANCOMYCIN 50 MG/ML ORAL SUSP PO SCH (03:08)
[2020-07-14] MEDS: CARVEDILOL 25 MG TABLET PO SCH ×2 (05:52→18:32)
[2020-07-14 06:22] LABS: ALBUMIN 2.1 g/dL (3.4-5.0); ANION GAP 8 mmol/L (5-15); CALCIUM 8.3 mg/dL (8.5-10.1); CHLORIDE 111 mmol/L (98-107)
[2020-07-14 06:26] LABS: ALANINE AMINOTRANSFERASE 24 U/L (12-78); ALKALINE PHOSPHATASE 282 U/L (45-117); BILIRUBIN,TOTAL 0.4 mg/dL (0.2-1.0); CREATININE 8.54 mg/dL (0.7-1.3); TOTAL PROTEIN 7.4 g/dL (6.4-8.2)
[2020-07-14 06:41] LABS: MEAN CORPUSCULAR HEMOGLOBIN 28.7 pg (27.5-34.5); MEAN CORPUSCULAR HGB CONC 30.1 g/dL (33.2-36.2); MEAN PLATELET VOLUME 9.1 fL (7.4-10.4); PLATELET COUNT 143 x10^3/uL (130-400); RED BLOOD COUNT 2.71 x10^6/uL (4.38-5.82); RED CELL DISTRIBUTION WIDTH 20.7 % (9.4-14.8)
[2020-07-14 07:02] LABS: BASOPHILS # (AUTO) 0.01 x10^3/uL (0-0.1); BASOPHILS % (AUTO) 0 % (0-1); EOSINOPHILS # (AUTO) 0.04 x10^3/uL (0-0.4); EOSINOPHILS % (AUTO) 1 % (1-7); LYMPHOCYTES # (AUTO) 0.36 x10^3/uL (1-3.4); LYMPHOCYTES % (AUTO) 9 % (22-44); MD SCAN; MONOCYTES # (AUTO) 0.53 x10^3/uL (0.2-0.8); MONOCYTES % (AUTO) 14 % (2-9); NEUTROPHILS # (AUTO) 2.96 x10^3/uL (1.8-6.8); NEUTROPHILS % (AUTO) 76 % (42-75)
[2020-07-14] MEDS: SEVELAMER CARBONATE 800MG TAB PO SCH ×3 (08:00→18:33)
[2020-07-14] MEDS: RITONAVIR 100 MG TABLET PO SCH (09:00)
[2020-07-14] MEDS: CHOLESTYRAMINE LIGHT 4GM PACKET PO SCH ×3 (09:00→20:44)
[2020-07-14] MEDS: SODIUM BICARBONATE 650 MG TABLET PO SCH ×2 (09:00→20:46)
[2020-07-14] MEDS ORDERED: NALOXONE 1 MG/ML, 2ML ONE (12:47)
[2020-07-14] MEDS ORDERED: MIDAZOLAM 1 MG/ML, 5ML ONE (12:47)
[2020-07-14] MEDS ORDERED: FLUMAZENIL 0.1 MG/1 ML, 5ML ONE (12:47)
[2020-07-14] MEDS ORDERED: FENTANYL PF 100 MCG/2ML ONE (12:47)
[2020-07-14] MEDS: LAMIVUDINE 10 MG/ML PO SCH (14:48)
[2020-07-14] MEDS: DARUNAVIR 800 MG TABLET PO SCH (14:49)
[2020-07-14] MEDS: LISINOPRIL 10 MG TABLET PO SCH (14:51)
[2020-07-14] MEDS: DOLUTEGRAVIR 50MG TAB PO SCH (14:51)
[2020-07-14] MEDS: metroNIDAZOLE 500 MG TABLET PO SCH ×2 (14:51→23:43)
[2020-07-14] MEDS: HYDROcodone/APAP 5/325 TABLET PO PRN ×2 (14:57→23:45)
[2020-07-14] MEDS: GABAPENTIN 100 MG CAPSULE PO PRN (14:57)
[2020-07-14] MEDS: SULFAMETH./TRIMETHOPRIM DS 800MG/160MG TABLET PO SCH (16:28)
[2020-07-14] MEDS: ATORVASTATIN 20 MG TABLET PO SCH (20:44)
[2020-07-14] MEDS ORDERED: metroNIDAZOLE 500 MG TABLET PO SCH (21:00)
[2020-07-15 01:33] VITALS: BP 125/74
[2020-07-15] MEDS: CARVEDILOL 25 MG TABLET PO SCH ×2 (06:02→16:52)
[2020-07-15] MEDS: HYDROcodone/APAP 5/325 TABLET PO PRN ×2 (06:03→21:22)
[2020-07-15 08:08] VITALS: BP 122/76
[2020-07-15] MEDS: SULFAMETH./TRIMETHOPRIM DS 800MG/160MG TABLET PO SCH (08:27)
[2020-07-15] MEDS: CHOLESTYRAMINE LIGHT 4GM PACKET PO SCH ×3 (08:28→21:22)
[2020-07-15] MEDS: SEVELAMER CARBONATE 800MG TAB PO SCH ×3 (08:28→16:52)
[2020-07-15] MEDS: LISINOPRIL 10 MG TABLET PO SCH (08:28)
[2020-07-15] MEDS: metroNIDAZOLE 500 MG TABLET PO SCH ×3 (08:28→22:55)
[2020-07-15] MEDS: DOLUTEGRAVIR 50MG TAB PO SCH (08:29)
[2020-07-15] MEDS: DARUNAVIR 800 MG TABLET PO SCH (08:29)
[2020-07-15] MEDS: LAMIVUDINE 10 MG/ML PO SCH (08:30)
[2020-07-15] MEDS: RITONAVIR 100 MG TABLET PO SCH (08:30)
[2020-07-15] MEDS: SODIUM BICARBONATE 650 MG TABLET PO SCH ×2 (08:32→21:24)
[2020-07-15 14:43] VITALS: BP 126/86
[2020-07-15] MEDS: ACETAMINOPHEN 325 MG TABLET PO PRN (17:30)
[2020-07-15] MEDS ORDERED: ONDANSETRON ODT 4 MG PO ONE (17:30)
[2020-07-15] MEDS ORDERED: LORazepam 2 MG/ML, 1ML IVPush PRN (17:30)
[2020-07-15 20:00] VITALS: BP 143/86
[2020-07-15] MEDS: ATORVASTATIN 20 MG TABLET PO SCH (21:23)
[2020-07-15] MEDS: APIXABAN 2.5 MG TABLET PO SCH (21:24)
[2020-07-16 00:54] VITALS: BP 154/87
[2020-07-16] MEDS: HYDROcodone/APAP 5/325 TABLET PO PRN ×2 (04:17→20:48)
[2020-07-16] MEDS: CARVEDILOL 25 MG TABLET PO SCH ×2 (05:22→17:04)
[2020-07-16 06:18] LABS: MEAN CORPUSCULAR HEMOGLOBIN 29.1 pg (27.5-34.5); MEAN CORPUSCULAR HGB CONC 30.5 g/dL (33.2-36.2); MEAN PLATELET VOLUME 9.2 fL (7.4-10.4); PLATELET COUNT 131 x10^3/uL (130-400); RED CELL DISTRIBUTION WIDTH 20.9 % (9.4-14.8)
[2020-07-16 06:21] LABS: ALBUMIN 2.2 g/dL (3.4-5.0); ANION GAP 8 mmol/L (5-15); CALCIUM 7.9 mg/dL (8.5-10.1); CHLORIDE 107 mmol/L (98-107)
[2020-07-16 06:23] LABS: CREATININE 7.93 mg/dL (0.7-1.3)
[2020-07-16 06:52] LABS: MD YES
[2020-07-16 06:56] LABS: BAND#(MANUAL) 0.27 x10^3/uL; BANDS%(MANUAL) 7 % (0-7); EOS#(MANUAL) 0.12 x10^3/uL (0.0-0.4); EOS% (MANUAL) 3 % (1-7); LYMPH#(MANUAL) 0.55 x10^3/uL (1-3.4); LYMPHS% (MANUAL) 14 % (22-44); METAMYELOCYTES# (MANUAL) 0.08 x10^3/uL (0-0); METAMYELOCYTES% (MANUAL) 2 % (0-1); MONOS#(MANUAL) 0.23 x10^3/uL (0.3-2.7); MONOS% (MANUAL) 6 % (2-9); SEG#(MANUAL) 2.65 x10^3/uL (1.8-6.8); SEGS% (MANUAL) 68 % (42-75)
[2020-07-16 06:57] LABS: ANISOCYTOSIS 1+; OVALOCYTES 1+; POLYCHROMASIA 1+
[2020-07-16 06:58] LABS: <PLATELET ESTIMATE> DECREASED; LARGE PLATELETS 1+
[2020-07-16 08:13] VITALS: BP 122/74
[2020-07-16] MEDS: SEVELAMER CARBONATE 800MG TAB PO SCH ×3 (08:38→17:04)
[2020-07-16] MEDS: DARUNAVIR 800 MG TABLET PO SCH (08:38)
[2020-07-16] MEDS: AZITHROMYCIN 600 MG TABLET PO SCH (08:38)
[2020-07-16] MEDS: DOLUTEGRAVIR 50MG TAB PO SCH (08:39)
[2020-07-16] MEDS: LISINOPRIL 10 MG TABLET PO SCH (08:39)
[2020-07-16] MEDS: CHOLESTYRAMINE LIGHT 4GM PACKET PO SCH ×3 (08:41→20:49)
[2020-07-16] MEDS: ASPIRIN 81 MG TABLET CHEW PO SCH (08:41)
[2020-07-16] MEDS: LAMIVUDINE 10 MG/ML PO SCH (08:41)
[2020-07-16] MEDS: SULFAMETH./TRIMETHOPRIM DS 800MG/160MG TABLET PO SCH (08:41)
[2020-07-16] MEDS: metroNIDAZOLE 500 MG TABLET PO SCH ×3 (08:41→22:40)
[2020-07-16] MEDS: APIXABAN 2.5 MG TABLET PO SCH ×2 (08:44→20:49)
[2020-07-16] MEDS: SODIUM BICARBONATE 650 MG TABLET PO SCH ×2 (08:44→20:49)
[2020-07-16] MEDS: RITONAVIR 100 MG TABLET PO SCH (08:44)
[2020-07-16] MEDS: DIPHENHYDRAMINE 12.5MG/5ML, 10ML UDC PO PRN (10:33)
[2020-07-16] MEDS: GABAPENTIN 100 MG CAPSULE PO PRN (11:25)
[2020-07-16] MEDS ORDERED: DARBEPOETIN 60 MCG/ML SQ SCH (13:33)
[2020-07-16 13:56] VITALS: BP 130/79
[2020-07-16 19:47] VITALS: BP 122/69
[2020-07-16] MEDS: ATORVASTATIN 20 MG TABLET PO SCH (20:47)
[2020-07-17 00:01] VITALS: BP 116/76
[2020-07-17] MEDS: CARVEDILOL 25 MG TABLET PO SCH ×2 (06:10→17:35)
[2020-07-17] MEDS: metroNIDAZOLE 500 MG TABLET PO SCH ×3 (06:13→22:47)
[2020-07-17] MEDS: RITONAVIR 100 MG TABLET PO SCH (08:01)
[2020-07-17] MEDS: DOLUTEGRAVIR 50MG TAB PO SCH (08:02)
[2020-07-17] MEDS: DARUNAVIR 800 MG TABLET PO SCH (08:02)
[2020-07-17] MEDS: CHOLESTYRAMINE LIGHT 4GM PACKET PO SCH ×3 (08:02→20:23)
[2020-07-17] MEDS: ASPIRIN 81 MG TABLET CHEW PO SCH (08:02)
[2020-07-17] MEDS: SULFAMETH./TRIMETHOPRIM DS 800MG/160MG TABLET PO SCH (08:02)
[2020-07-17] MEDS: APIXABAN 2.5 MG TABLET PO SCH ×2 (08:03→20:24)
[2020-07-17] MEDS: LAMIVUDINE 10 MG/ML PO SCH (08:03)
[2020-07-17] MEDS: SEVELAMER CARBONATE 800MG TAB PO SCH ×3 (08:03→15:51)
[2020-07-17] MEDS: LISINOPRIL 10 MG TABLET PO SCH (08:03)
[2020-07-17] MEDS: SODIUM BICARBONATE 650 MG TABLET PO SCH ×2 (08:04→20:24)
[2020-07-17 08:08] VITALS: BP 121/81
[2020-07-17 12:30] VITALS: BP 126/81
[2020-07-17 17:34] VITALS: BP 140/87
[2020-07-17 20:21] VITALS: BP 126/85
[2020-07-17] MEDS: ATORVASTATIN 20 MG TABLET PO SCH (20:23)
[2020-07-18 02:45] VITALS: BP 131/79
[2020-07-18 05:14] VITALS: BP 152/103
[2020-07-18] MEDS: CARVEDILOL 25 MG TABLET PO SCH ×2 (05:15→16:55)
[2020-07-18] MEDS: metroNIDAZOLE 500 MG TABLET PO SCH ×3 (06:41→23:29)
[2020-07-18 07:49] VITALS: BP 141/95
[2020-07-18] MEDS: SULFAMETH./TRIMETHOPRIM DS 800MG/160MG TABLET PO SCH (08:01)
[2020-07-18] MEDS: ASPIRIN 81 MG TABLET CHEW PO SCH (08:01)
[2020-07-18] MEDS: RITONAVIR 100 MG TABLET PO SCH (08:03)
[2020-07-18] MEDS: SEVELAMER CARBONATE 800MG TAB PO SCH ×3 (08:03→16:55)
[2020-07-18] MEDS: DARUNAVIR 800 MG TABLET PO SCH (08:03)
[2020-07-18] MEDS: DOLUTEGRAVIR 50MG TAB PO SCH (08:04)
[2020-07-18] MEDS: CHOLESTYRAMINE LIGHT 4GM PACKET PO SCH ×3 (08:04→20:40)
[2020-07-18] MEDS: LAMIVUDINE 10 MG/ML PO SCH (08:04)
[2020-07-18] MEDS: SODIUM BICARBONATE 650 MG TABLET PO SCH ×2 (08:04→20:43)
[2020-07-18] MEDS: LISINOPRIL 10 MG TABLET PO SCH (08:04)
[2020-07-18] MEDS: APIXABAN 2.5 MG TABLET PO SCH ×2 (08:05→20:43)
[2020-07-18] MEDS: DILTIAZEM 30 MG TABLET PO SCH ×2 (09:33→20:43)
[2020-07-18 13:56] VITALS: BP 119/74
[2020-07-18 19:21] VITALS: BP 110/70
[2020-07-18] MEDS: ATORVASTATIN 20 MG TABLET PO SCH (20:40)
[2020-07-19 01:48] VITALS: BP 120/80
[2020-07-19] MEDS: CARVEDILOL 25 MG TABLET PO SCH ×2 (06:15→19:37)
[2020-07-19] MEDS: metroNIDAZOLE 500 MG TABLET PO SCH ×3 (07:00→23:01)
[2020-07-19 07:19] VITALS: BP 122/71
[2020-07-19] MEDS: SEVELAMER CARBONATE 800MG TAB PO SCH ×3 (08:00→17:35)
[2020-07-19] MEDS: DILTIAZEM 30 MG TABLET PO SCH ×2 (09:00→21:40)
[2020-07-19] MEDS: SODIUM BICARBONATE 650 MG TABLET PO SCH ×2 (09:00→21:41)
[2020-07-19] MEDS: CHOLESTYRAMINE LIGHT 4GM PACKET PO SCH ×3 (09:00→21:40)
[2020-07-19] MEDS: APIXABAN 2.5 MG TABLET PO SCH ×2 (09:00→21:41)
[2020-07-19 13:09] VITALS: BP 127/77
[2020-07-19 19:31] VITALS: BP 134/86
[2020-07-19] MEDS: ASPIRIN 81 MG TABLET CHEW PO SCH (19:36)
[2020-07-19] MEDS: RITONAVIR 100 MG TABLET PO SCH (19:36)
[2020-07-19] MEDS: DARUNAVIR 800 MG TABLET PO SCH (19:37)
[2020-07-19] MEDS: DOLUTEGRAVIR 50MG TAB PO SCH (19:37)
[2020-07-19] MEDS: LAMIVUDINE 10 MG/ML PO SCH (19:38)
[2020-07-19] MEDS: LISINOPRIL 10 MG TABLET PO SCH (19:38)
[2020-07-19] MEDS: SULFAMETH./TRIMETHOPRIM DS 800MG/160MG TABLET PO SCH (19:38)
[2020-07-19 21:38] VITALS: BP 128/84
[2020-07-19] MEDS: GABAPENTIN 100 MG CAPSULE PO PRN (21:40)
[2020-07-19] MEDS: ATORVASTATIN 20 MG TABLET PO SCH (21:40)
[2020-07-20 01:55] VITALS: BP 129/83
[2020-07-20 05:33] VITALS: BP 125/81
[2020-07-20 05:33] LABS: ALBUMIN 2.2 g/dL (3.4-5.0); ANION GAP 7 mmol/L (5-15); CALCIUM 8.2 mg/dL (8.5-10.1); CHLORIDE 113 mmol/L (98-107); CREATININE 7.46 mg/dL (0.7-1.3)
[2020-07-20] MEDS: HYDROcodone/APAP 5/325 TABLET PO PRN ×2 (05:34→16:36)
[2020-07-20] MEDS: CARVEDILOL 25 MG TABLET PO SCH ×2 (05:35→18:26)
[2020-07-20 05:44] LABS: MEAN CORPUSCULAR HEMOGLOBIN 28.7 pg (27.5-34.5); MEAN CORPUSCULAR HGB CONC 30.6 g/dL (33.2-36.2); MEAN PLATELET VOLUME 8.7 fL (7.4-10.4); PLATELET COUNT 131 x10^3/uL (130-400); RED BLOOD COUNT 2.85 x10^6/uL (4.38-5.82); RED CELL DISTRIBUTION WIDTH 19.9 % (9.4-14.8)
[2020-07-20 05:54] LABS: MD YES
[2020-07-20 06:03] LABS: ANISOCYTOSIS 1+; BAND#(MANUAL) 0.19 x10^3/uL; BANDS%(MANUAL) 6 % (0-7); EOS#(MANUAL) 0.06 x10^3/uL (0.0-0.4); EOS% (MANUAL) 2 % (1-7); LYMPH#(MANUAL) 0.48 x10^3/uL (1-3.4); LYMPHS% (MANUAL) 15 % (22-44); METAMYELOCYTES# (MANUAL) 0.03 x10^3/uL (0-0); METAMYELOCYTES% (MANUAL) 1 % (0-1); MONOS#(MANUAL) 0.42 x10^3/uL (0.3-2.7); MONOS% (MANUAL) 13 % (2-9); POLYCHROMASIA 1+; SEG#(MANUAL) 2.02 x10^3/uL (1.8-6.8); SEGS% (MANUAL) 63 % (42-75)
[2020-07-20 06:04] LABS: <PLATELET ESTIMATE> ADEQUATE; <PLT MORPHOLOGY> NORMAL PLT MORPH; OVALOCYTES 1+
[2020-07-20 06:05] LABS: HYPOCHROMIA 1+
[2020-07-20 07:35] VITALS: BP 107/69
[2020-07-20] MEDS: metroNIDAZOLE 500 MG TABLET PO SCH ×3 (07:45→23:58)
[2020-07-20] MEDS: CHOLESTYRAMINE LIGHT 4GM PACKET PO SCH ×3 (08:41→20:14)
[2020-07-20] MEDS: RITONAVIR 100 MG TABLET PO SCH (08:43)
[2020-07-20] MEDS: SULFAMETH./TRIMETHOPRIM DS 800MG/160MG TABLET PO SCH (08:43)
[2020-07-20] MEDS: DARUNAVIR 800 MG TABLET PO SCH (08:44)
[2020-07-20] MEDS: DOLUTEGRAVIR 50MG TAB PO SCH (08:44)
[2020-07-20] MEDS: ASPIRIN 81 MG TABLET CHEW PO SCH (08:44)
[2020-07-20] MEDS: SEVELAMER CARBONATE 800MG TAB PO SCH ×3 (08:44→18:26)
[2020-07-20] MEDS: LAMIVUDINE 10 MG/ML PO SCH (08:45)
[2020-07-20] MEDS: APIXABAN 2.5 MG TABLET PO SCH ×2 (08:45→20:16)
[2020-07-20] MEDS: LISINOPRIL 10 MG TABLET PO SCH (08:45)
[2020-07-20] MEDS: DILTIAZEM 30 MG TABLET PO SCH ×2 (08:45→20:14)
[2020-07-20] MEDS: SODIUM BICARBONATE 650 MG TABLET PO SCH ×2 (08:46→20:17)
[2020-07-20 12:31] VITALS: BP 117/71
[2020-07-20] MEDS: NYSTATIN 500,000 UNITS/5 ML UDC PO SCH ×2 (18:26→20:14)
[2020-07-20 19:44] VITALS: BP 129/84
[2020-07-20] MEDS: ATORVASTATIN 20 MG TABLET PO SCH (20:15)
[2020-07-21 03:30] VITALS: BP 112/78
[2020-07-21 05:53] LABS: CHLORIDE 111 mmol/L (98-107)
[2020-07-21 06:10] LABS: ANION GAP 13 mmol/L (5-15); CALCIUM 8.2 mg/dL (8.5-10.1); CREATININE 8.49 mg/dL (0.7-1.3)
[2020-07-21] MEDS: CARVEDILOL 25 MG TABLET PO SCH ×2 (06:29→18:39)
[2020-07-21] MEDS: NYSTATIN 500,000 UNITS/5 ML UDC PO SCH ×4 (06:30→21:07)
[2020-07-21 08:17] VITALS: BP 141/92
[2020-07-21] MEDS: SODIUM BICARBONATE 650 MG TABLET PO SCH ×2 (09:00→21:08)
[2020-07-21] MEDS ORDERED: FLUCONAZOLE 100 MG TABLET PO ONE (09:00)
[2020-07-21] MEDS: APIXABAN 2.5 MG TABLET PO SCH ×2 (09:00→21:07)
[2020-07-21 09:30] VITALS: BP 134/84
[2020-07-21] MEDS: DOLUTEGRAVIR 50MG TAB PO SCH (09:32)
[2020-07-21] MEDS: LAMIVUDINE 10 MG/ML PO SCH (09:32)
[2020-07-21] MEDS: CHOLESTYRAMINE LIGHT 4GM PACKET PO SCH ×3 (09:32→21:07)
[2020-07-21] MEDS: DARUNAVIR 800 MG TABLET PO SCH (09:32)
[2020-07-21] MEDS: RITONAVIR 100 MG TABLET PO SCH (09:32)
[2020-07-21] MEDS: ASPIRIN 81 MG TABLET CHEW PO SCH (09:33)
[2020-07-21] MEDS: SEVELAMER CARBONATE 800MG TAB PO SCH ×3 (09:33→17:00)
[2020-07-21] MEDS: DILTIAZEM 30 MG TABLET PO SCH ×2 (09:33→21:06)
[2020-07-21] MEDS: metroNIDAZOLE 500 MG TABLET PO SCH ×2 (09:34→18:39)
[2020-07-21] MEDS: SULFAMETH./TRIMETHOPRIM DS 800MG/160MG TABLET PO SCH (09:34)
[2020-07-21] MEDS: LISINOPRIL 10 MG TABLET PO SCH (09:35)
[2020-07-21 14:43] VITALS: BP 121/72
[2020-07-21 18:30] VITALS: BP 136/87
[2020-07-21 19:47] VITALS: BP 128/73
[2020-07-21] MEDS: ATORVASTATIN 20 MG TABLET PO SCH (21:07)
[2020-07-21 22:27] LABS: ANION GAP 10 mmol/L (5-15); CALCIUM 8.1 mg/dL (8.5-10.1); CHLORIDE 105 mmol/L (98-107); CREATININE 6.44 mg/dL (0.7-1.3)
[2020-07-21 22:31] LABS: TROPONIN I 0.053 ng/mL (0.000-0.045)
[2020-07-21] MEDS ORDERED: MAGNESIUM SULFATE PMX 2GM/50ML 50 ML IV ONE (23:30)
[2020-07-22 00:21] VITALS: BP 122/69
[2020-07-22] MEDS: metroNIDAZOLE 500 MG TABLET PO SCH ×3 (00:26→16:52)
[2020-07-22] MEDS: NYSTATIN 500,000 UNITS/5 ML UDC PO SCH ×4 (05:45→20:04)
[2020-07-22] MEDS: CARVEDILOL 25 MG TABLET PO SCH ×2 (05:45→16:52)
[2020-07-22 06:36] LABS: TROPONIN I 0.064 ng/mL (0.000-0.045)
[2020-07-22] MEDS: CHOLESTYRAMINE LIGHT 4GM PACKET PO SCH ×2 (08:05→16:52)
[2020-07-22] MEDS: LAMIVUDINE 10 MG/ML PO SCH (08:06)
[2020-07-22] MEDS: SEVELAMER CARBONATE 800MG TAB PO SCH ×3 (08:06→16:52)
[2020-07-22] MEDS: DARUNAVIR 800 MG TABLET PO SCH (08:06)
[2020-07-22] MEDS: DOLUTEGRAVIR 50MG TAB PO SCH (08:06)
[2020-07-22] MEDS: DILTIAZEM 30 MG TABLET PO SCH ×2 (08:06→20:03)
[2020-07-22] MEDS: LISINOPRIL 10 MG TABLET PO SCH (08:06)
[2020-07-22] MEDS: ASPIRIN 81 MG TABLET CHEW PO SCH (08:06)
[2020-07-22] MEDS: SULFAMETH./TRIMETHOPRIM DS 800MG/160MG TABLET PO SCH (08:06)
[2020-07-22] MEDS: RITONAVIR 100 MG TABLET PO SCH (08:07)
[2020-07-22] MEDS: SODIUM BICARBONATE 650 MG TABLET PO SCH ×2 (08:07→20:04)
[2020-07-22] MEDS: APIXABAN 2.5 MG TABLET PO SCH (08:08)
[2020-07-22 08:10] VITALS: BP 117/78
[2020-07-22 09:20] LABS: ANION GAP 12 mmol/L (5-15); CHLORIDE 108 mmol/L (98-107); CREATININE 7.14 mg/dL (0.7-1.3)
[2020-07-22 11:37] LABS: TROPONIN I 0.041 ng/mL (0.000-0.045)
[2020-07-22 13:31] VITALS: BP 110/78
[2020-07-22 19:37] VITALS: BP 118/79
[2020-07-22] MEDS: ATORVASTATIN 20 MG TABLET PO SCH (20:03)
[2020-07-23] MEDS: metroNIDAZOLE 500 MG TABLET PO SCH ×3 (00:08→17:18)
[2020-07-23] MEDS: HYDROcodone/APAP 5/325 TABLET PO PRN ×3 (00:08→18:46)
[2020-07-23 00:11] VITALS: BP 123/78
[2020-07-23] MEDS: CHOLESTYRAMINE LIGHT 4GM PACKET PO SCH ×4 (01:41→20:21)
[2020-07-23 05:13] LABS: CREATININE 8.71 mg/dL (0.7-1.3)
[2020-07-23] MEDS: NYSTATIN 500,000 UNITS/5 ML UDC PO SCH ×4 (05:13→20:09)
[2020-07-23] MEDS: CARVEDILOL 25 MG TABLET PO SCH ×2 (05:13→17:17)
[2020-07-23] MEDS: GABAPENTIN 100 MG CAPSULE PO PRN ×2 (05:13→20:10)
[2020-07-23 05:15] VITALS: BP 129/86
[2020-07-23 07:34] VITALS: BP 114/78
[2020-07-23] MEDS: AZITHROMYCIN 600 MG TABLET PO SCH (08:28)
[2020-07-23] MEDS: DOLUTEGRAVIR 50MG TAB PO SCH (08:29)
[2020-07-23] MEDS: LAMIVUDINE 10 MG/ML PO SCH (08:29)
[2020-07-23] MEDS: RITONAVIR 100 MG TABLET PO SCH (08:29)
[2020-07-23] MEDS: DARUNAVIR 800 MG TABLET PO SCH (08:29)
[2020-07-23] MEDS: DILTIAZEM 30 MG TABLET PO SCH ×2 (08:29→20:10)
[2020-07-23] MEDS: LISINOPRIL 10 MG TABLET PO SCH (08:30)
[2020-07-23] MEDS: SEVELAMER CARBONATE 800MG TAB PO SCH ×3 (08:30→17:18)
[2020-07-23] MEDS: SULFAMETH./TRIMETHOPRIM DS 800MG/160MG TABLET PO SCH (08:30)
[2020-07-23] MEDS: SODIUM BICARBONATE 650 MG TABLET PO SCH ×2 (08:31→20:11)
[2020-07-23 12:29] VITALS: BP 118/71
[2020-07-23] MEDS: ARANESP 100 MCG/ML **ESRD SQ SCH ×2 (16:00→17:18)
[2020-07-23 17:16] VITALS: BP 117/81
[2020-07-23] MEDS ORDERED: GOLYTELY 4,000ML ORAL.SOL PO ONE (18:00)
[2020-07-23 19:43] VITALS: BP 121/79
[2020-07-23] MEDS: ATORVASTATIN 20 MG TABLET PO SCH (20:09)
[2020-07-23] MEDS: VANCOMYCIN 50 MG/ML ORAL SUSP PO SCH (20:09)
[2020-07-23] MEDS: ACETAMINOPHEN 325 MG TABLET PO PRN (20:12)
[2020-07-24] MEDS: metroNIDAZOLE 500 MG TABLET PO SCH ×3 (02:12→17:10)
[2020-07-24] MEDS: HYDROcodone/APAP 5/325 TABLET PO PRN (02:13)
[2020-07-24 02:24] VITALS: BP 110/74
[2020-07-24] MEDS: VANCOMYCIN 50 MG/ML ORAL SUSP PO SCH ×4 (03:17→20:49)
[2020-07-24 06:15] LABS: CHLORIDE 107 mmol/L (98-107)
[2020-07-24 06:24] VITALS: BP 105/68
[2020-07-24] MEDS: NYSTATIN 500,000 UNITS/5 ML UDC PO SCH ×4 (06:26→16:42)
[2020-07-24] MEDS: GABAPENTIN 100 MG CAPSULE PO PRN (06:26)
[2020-07-24] MEDS: CARVEDILOL 25 MG TABLET PO SCH ×2 (06:27→17:10)
[2020-07-24 06:30] LABS: ANION GAP 14 mmol/L (5-15); CREATININE 9.55 mg/dL (0.7-1.3)
[2020-07-24 07:56] LABS: MD YES; MEAN CORPUSCULAR HEMOGLOBIN 28.6 pg (27.5-34.5); MEAN CORPUSCULAR HGB CONC 30.8 g/dL (33.2-36.2); MEAN PLATELET VOLUME 7.9 fL (7.4-10.4); PLATELET COUNT 83 x10^3/uL (130-400); RED BLOOD COUNT 2.87 x10^6/uL (4.38-5.82); RED CELL DISTRIBUTION WIDTH 19.9 % (9.4-14.8)
[2020-07-24 07:59] LABS: ANISOCYTOSIS 1+; BAND#(MANUAL) 0.13 x10^3/uL; BANDS%(MANUAL) 5 % (0-7); EOS#(MANUAL) 0.13 x10^3/uL (0.0-0.4); EOS% (MANUAL) 5 % (1-7); HYPOCHROMIA 1+; LYMPH#(MANUAL) 0.55 x10^3/uL (1-3.4); LYMPHS% (MANUAL) 21 % (22-44); METAMYELOCYTES# (MANUAL) 0.03 x10^3/uL (0-0); METAMYELOCYTES% (MANUAL) 1 % (0-1); MONOS#(MANUAL) 0.31 x10^3/uL (0.3-2.7); MONOS% (MANUAL) 12 % (2-9); OVALOCYTES 1+; POLYCHROMASIA 1+; SEG#(MANUAL) 1.46 x10^3/uL (1.8-6.8); SEGS% (MANUAL) 56 % (42-75)
[2020-07-24 08:00] LABS: <PLATELET ESTIMATE> DECREASED; <PLT MORPHOLOGY> NORMAL PLT MORPH
[2020-07-24] MEDS: SEVELAMER CARBONATE 800MG TAB PO SCH ×3 (08:00→16:42)
[2020-07-24] MEDS: LISINOPRIL 10 MG TABLET PO SCH (09:00)
[2020-07-24] MEDS: LAMIVUDINE 10 MG/ML PO SCH ×2 (09:00→16:42)
[2020-07-24] MEDS: RITONAVIR 100 MG TABLET PO SCH (09:00)
[2020-07-24] MEDS: SODIUM BICARBONATE 650 MG TABLET PO SCH ×2 (09:00→20:52)
[2020-07-24] MEDS: DARUNAVIR 800 MG TABLET PO SCH (09:00)
[2020-07-24] MEDS: DOLUTEGRAVIR 50MG TAB PO SCH (09:00)
[2020-07-24] MEDS: CHOLESTYRAMINE LIGHT 4GM PACKET PO SCH ×3 (09:00→20:49)
[2020-07-24] MEDS: SULFAMETH./TRIMETHOPRIM DS 800MG/160MG TABLET PO SCH (09:00)
[2020-07-24] MEDS ORDERED: CHLORHEXIDINE 15 ML UDC ONE (09:21)
[2020-07-24] MEDS ORDERED: HEPARIN 5,000 UNITS/ML, 1ML ONE ×2 (10:00→10:06)
[2020-07-24 11:12] VITALS: BP 117/75
[2020-07-24] MEDS: ATORVASTATIN 20 MG TABLET PO SCH (20:52)
[2020-07-24 20:56] VITALS: BP 106/76
[2020-07-25] MEDS: metroNIDAZOLE 500 MG TABLET PO SCH ×3 (00:46→17:41)
[2020-07-25 01:09] VITALS: BP 111/77
[2020-07-25] MEDS: VANCOMYCIN 50 MG/ML ORAL SUSP PO SCH ×4 (02:12→20:00)
[2020-07-25] MEDS: NYSTATIN 500,000 UNITS/5 ML UDC PO SCH ×4 (06:25→21:00)
[2020-07-25] MEDS: CARVEDILOL 25 MG TABLET PO SCH ×2 (06:25→17:42)
[2020-07-25 08:10] VITALS: BP 123/82
[2020-07-25] MEDS: SODIUM BICARBONATE 650 MG TABLET PO SCH ×2 (09:00→21:00)
[2020-07-25] MEDS: SULFAMETH./TRIMETHOPRIM DS 800MG/160MG TABLET PO SCH (09:02)
[2020-07-25] MEDS: DOLUTEGRAVIR 50MG TAB PO SCH (09:03)
[2020-07-25] MEDS: RITONAVIR 100 MG TABLET PO SCH (09:03)
[2020-07-25] MEDS: LISINOPRIL 10 MG TABLET PO SCH (09:03)
[2020-07-25] MEDS: SEVELAMER CARBONATE 800MG TAB PO SCH ×3 (09:03→17:42)
[2020-07-25] MEDS: DARUNAVIR 800 MG TABLET PO SCH (09:03)
[2020-07-25] MEDS: CHOLESTYRAMINE LIGHT 4GM PACKET PO SCH ×3 (09:04→21:00)
[2020-07-25] MEDS ORDERED: PROPOFOL 10 MG/ML, 50ML ONE (09:35)
[2020-07-25 14:30] VITALS: BP 135/99
[2020-07-25 19:00] VITALS: BP 119/72
[2020-07-25] MEDS: ATORVASTATIN 20 MG TABLET PO SCH (21:00)
[2020-07-25] MEDS: HYDROcodone/APAP 5/325 TABLET PO PRN (22:15)
[2020-07-26] MEDS: metroNIDAZOLE 500 MG TABLET PO SCH (01:00)
[2020-07-26] MEDS: VANCOMYCIN 50 MG/ML ORAL SUSP PO SCH ×4 (02:00→20:12)
[2020-07-26 04:32] LABS: ANION GAP 12 mmol/L (5-15); CALCIUM 8.4 mg/dL (8.5-10.1); CHLORIDE 111 mmol/L (98-107)
[2020-07-26 04:33] LABS: CREATININE 9.82 mg/dL (0.7-1.3)
[2020-07-26] MEDS: CARVEDILOL 25 MG TABLET PO SCH ×2 (05:40→17:46)
[2020-07-26] MEDS: NYSTATIN 500,000 UNITS/5 ML UDC PO SCH ×4 (05:40→20:12)
[2020-07-26 05:43] LABS: MD YES; MEAN CORPUSCULAR HEMOGLOBIN 28.3 pg (27.5-34.5); MEAN CORPUSCULAR HGB CONC 30.5 g/dL (33.2-36.2); MEAN PLATELET VOLUME 8.5 fL (7.4-10.4); PLATELET COUNT 115 x10^3/uL (130-400); RED BLOOD COUNT 2.96 x10^6/uL (4.38-5.82); RED CELL DISTRIBUTION WIDTH 19.8 % (9.4-14.8)
[2020-07-26 05:45] LABS: BAND#(MANUAL) 0.12 x10^3/uL; BANDS%(MANUAL) 3 % (0-7); EOS#(MANUAL) 0.16 x10^3/uL (0.0-0.4); EOS% (MANUAL) 4 % (1-7); LYMPH#(MANUAL) 0.68 x10^3/uL (1-3.4); LYMPHS% (MANUAL) 17 % (22-44); MONOS#(MANUAL) 0.44 x10^3/uL (0.3-2.7); MONOS% (MANUAL) 11 % (2-9); SEGS% (MANUAL) 65 % (42-75)
[2020-07-26 05:46] LABS: ANISOCYTOSIS 1+
[2020-07-26 05:47] LABS: HYPOCHROMIA 1+; OVALOCYTES 1+
[2020-07-26 05:49] LABS: <PLATELET ESTIMATE> DECREASED; <PLT MORPHOLOGY> NORMAL PLT MORPH
[2020-07-26] MEDS: CHOLESTYRAMINE LIGHT 4GM PACKET PO SCH ×3 (09:00→20:12)
[2020-07-26] MEDS: SEVELAMER CARBONATE 800MG TAB PO SCH ×3 (09:13→17:46)
[2020-07-26 09:17] VITALS: BP 109/71
[2020-07-26 13:35] VITALS: BP 118/73
[2020-07-26] MEDS ORDERED: ONDANSETRON ODT 4 MG ONE (15:02)
[2020-07-26] MEDS: ONDANSETRON ODT 4 MG PO PRN (15:16)
[2020-07-26] MEDS: DARUNAVIR 800 MG TABLET PO SCH (15:17)
[2020-07-26] MEDS: DOLUTEGRAVIR 50MG TAB PO SCH (15:17)
[2020-07-26] MEDS: LAMIVUDINE 10 MG/ML PO SCH (15:18)
[2020-07-26] MEDS: LACTOBACILLUS CHEW TABLET PO SCH ×3 (15:18→20:11)
[2020-07-26] MEDS: HYDROcodone/APAP 5/325 TABLET PO PRN ×2 (15:18→20:11)
[2020-07-26] MEDS: LISINOPRIL 10 MG TABLET PO SCH (15:19)
[2020-07-26] MEDS: RITONAVIR 100 MG TABLET PO SCH (15:19)
[2020-07-26] MEDS: SODIUM BICARBONATE 650 MG TABLET PO SCH ×2 (15:19→20:12)
[2020-07-26] MEDS: SULFAMETH./TRIMETHOPRIM DS 800MG/160MG TABLET PO SCH (15:19)
[2020-07-26] MEDS: DIPHENHYDRAMINE 12.5MG/5ML, 10ML UDC PO PRN (17:47)
[2020-07-26 19:57] VITALS: BP 117/80
[2020-07-26] MEDS: ATORVASTATIN 20 MG TABLET PO SCH (20:11)
[2020-07-27 01:14] VITALS: BP 111/76
[2020-07-27] MEDS: VANCOMYCIN 50 MG/ML ORAL SUSP PO SCH ×4 (02:12→22:15)
[2020-07-27 05:22] LABS: CHLORIDE 108 mmol/L (98-107)
[2020-07-27 05:30] LABS: ALANINE AMINOTRANSFERASE 15 U/L (12-78); ALBUMIN 2.6 g/dL (3.4-5.0); ALKALINE PHOSPHATASE 299 U/L (45-117); BILIRUBIN,TOTAL 0.6 mg/dL (0.2-1.0); CALCIUM 8.5 mg/dL (8.5-10.1); CREATININE 7.63 mg/dL (0.7-1.3); TOTAL PROTEIN 8.3 g/dL (6.4-8.2)
[2020-07-27] MEDS: LACTOBACILLUS CHEW TABLET PO SCH ×4 (06:01→21:00)
[2020-07-27] MEDS: NYSTATIN 500,000 UNITS/5 ML UDC PO SCH ×4 (06:01→21:00)
[2020-07-27] MEDS: CARVEDILOL 25 MG TABLET PO SCH ×2 (06:01→17:17)
[2020-07-27 06:21] LABS: MEAN CORPUSCULAR HEMOGLOBIN 28.9 pg (27.5-34.5); MEAN CORPUSCULAR HGB CONC 30.9 g/dL (33.2-36.2); MEAN PLATELET VOLUME 8.4 fL (7.4-10.4); PLATELET COUNT 119 x10^3/uL (130-400); RED BLOOD COUNT 3.03 x10^6/uL (4.38-5.82); RED CELL DISTRIBUTION WIDTH 20.1 % (9.4-14.8)
[2020-07-27 06:22] LABS: MD YES
[2020-07-27 06:24] LABS: ANISOCYTOSIS 1+; BASOS#(MANUAL) 0.03 x10^3/uL (0-0.1); BASOS% (MANUAL) 1 % (0-1); HYPOCHROMIA 1+; LYMPHS% (MANUAL) 15 % (22-44); METAMYELOCYTES% (MANUAL) 3 % (0-1); MONOS% (MANUAL) 15 % (2-9); OVALOCYTES 1+; SEG#(MANUAL) 2.18 x10^3/uL (1.8-6.8); SEGS% (MANUAL) 66 % (42-75)
[2020-07-27 06:25] LABS: <PLATELET ESTIMATE> DECREASED; <PLT MORPHOLOGY> NORMAL PLT MORPH
[2020-07-27 08:15] VITALS: BP 92/55
[2020-07-27] MEDS ORDERED: GANCICLOVIR 500 MG IVPB SCH (09:00)
[2020-07-27] MEDS: RITONAVIR 100 MG TABLET PO SCH (10:01)
[2020-07-27] MEDS: CHOLESTYRAMINE LIGHT 4GM PACKET PO SCH ×3 (10:01→21:00)
[2020-07-27] MEDS: SEVELAMER CARBONATE 800MG TAB PO SCH ×4 (10:02→17:17)
[2020-07-27] MEDS: DARUNAVIR 800 MG TABLET PO SCH (10:02)
[2020-07-27] MEDS: DOLUTEGRAVIR 50MG TAB PO SCH (10:02)
[2020-07-27] MEDS: LISINOPRIL 10 MG TABLET PO SCH (10:02)
[2020-07-27] MEDS: SULFAMETH./TRIMETHOPRIM DS 800MG/160MG TABLET PO SCH (10:02)
[2020-07-27] MEDS: HYDROcodone/APAP 5/325 TABLET PO PRN ×2 (10:03→21:01)
[2020-07-27] MEDS: SODIUM BICARBONATE 650 MG TABLET PO SCH ×2 (10:03→21:01)
[2020-07-27] MEDS: LAMIVUDINE 10 MG/ML PO SCH (10:07)
[2020-07-27 14:41] VITALS: BP 102/67
[2020-07-27] MEDS ORDERED: GANCICLOVIR IVPB SCH (17:00)
[2020-07-27] MEDS ORDERED: SODIUM CHLORIDE 0.9% IVPB SCH (17:00)
[2020-07-27] MEDS: MICAFUNGIN 150 MG in SODIUM CHLORIDE 0.9% 100 ML IV SCH (17:17)
[2020-07-27] MEDS: ONDANSETRON ODT 4 MG PO PRN (17:52)
[2020-07-27 20:38] VITALS: BP 100/65
[2020-07-27] MEDS: ATORVASTATIN 20 MG TABLET PO SCH (21:00)
[2020-07-28 00:42] VITALS: BP 102/66
[2020-07-28] MEDS: VANCOMYCIN 50 MG/ML ORAL SUSP PO SCH ×4 (04:10→22:18)
[2020-07-28] MEDS: DIPHENHYDRAMINE 12.5MG/5ML, 10ML UDC PO PRN (04:12)
[2020-07-28 04:56] LABS: MEAN CORPUSCULAR HEMOGLOBIN 28.2 pg (27.5-34.5); MEAN CORPUSCULAR HGB CONC 30.3 g/dL (33.2-36.2); MEAN PLATELET VOLUME 8.9 fL (7.4-10.4); PLATELET COUNT 112 x10^3/uL (130-400); RED BLOOD COUNT 2.64 x10^6/uL (4.38-5.82); RED CELL DISTRIBUTION WIDTH 19.7 % (9.4-14.8)
[2020-07-28 05:04] LABS: ALBUMIN 2.5 g/dL (3.4-5.0); ANION GAP 11 mmol/L (5-15); CHLORIDE 106 mmol/L (98-107); CREATININE 8.69 mg/dL (0.7-1.3)
[2020-07-28] MEDS: CARVEDILOL 25 MG TABLET PO SCH ×3 (06:00→16:59)
[2020-07-28] MEDS: LACTOBACILLUS CHEW TABLET PO SCH ×4 (06:01→20:31)
[2020-07-28] MEDS: NYSTATIN 500,000 UNITS/5 ML UDC PO SCH ×4 (06:01→20:29)
[2020-07-28 06:21] LABS: MD YES
[2020-07-28 06:24] LABS: <PLATELET ESTIMATE> DECREASED; <PLT MORPHOLOGY> NORMAL PLT MORPH; ANISOCYTOSIS 1+; BASOS#(MANUAL) 0.08 x10^3/uL (0-0.1); BASOS% (MANUAL) 2 % (0-1); EOS#(MANUAL) 0.04 x10^3/uL (0.0-0.4); EOS% (MANUAL) 1 % (1-7); HYPOCHROMIA 1+; LYMPH#(MANUAL) 1.09 x10^3/uL (1-3.4); LYMPHS% (MANUAL) 28 % (22-44); MONOS#(MANUAL) 0.31 x10^3/uL (0.3-2.7); MONOS% (MANUAL) 8 % (2-9); SEG#(MANUAL) 2.38 x10^3/uL (1.8-6.8); SEGS% (MANUAL) 61 % (42-75)
[2020-07-28 06:25] LABS: OVALOCYTES 1+
[2020-07-28 07:16] VITALS: BP 106/68
[2020-07-28] MEDS: SEVELAMER CARBONATE 800MG TAB PO SCH ×3 (08:00→17:00)
[2020-07-28] MEDS: CHOLESTYRAMINE LIGHT 4GM PACKET PO SCH ×3 (09:00→20:30)
[2020-07-28] MEDS: SODIUM BICARBONATE 650 MG TABLET PO SCH ×2 (09:00→20:31)
[2020-07-28] MEDS ORDERED: LIDOCAINE-MPF 2% ,5ML ONE (10:17)
[2020-07-28] MEDS ORDERED: PROPOFOL 10 MG/ML, 20ML ONE (10:17)
[2020-07-28] MEDS ORDERED: PHENYLEPHRINE 10 MG/ML ONE (10:17)
[2020-07-28] MEDS ORDERED: FENTANYL PF 100 MCG/2ML IV PRN (10:30)
[2020-07-28] MEDS ORDERED: LABETALOL 5MG/ML, 20ML IV PRN (10:30)
[2020-07-28] MEDS ORDERED: MIDAZOLAM 1 MG/ML, 2ML IV PRN (10:30)
[2020-07-28] MEDS ORDERED: SODIUM CHLORIDE 0.9% IVPB SCH (12:43)
[2020-07-28] MEDS ORDERED: GANCICLOVIR IVPB SCH (12:43)
[2020-07-28 12:49] VITALS: BP 96/62
[2020-07-28] MEDS: HYDROcodone/APAP 5/325 TABLET PO PRN ×2 (16:58→22:35)
[2020-07-28] MEDS: LISINOPRIL 10 MG TABLET PO SCH (16:58)
[2020-07-28] MEDS: DOLUTEGRAVIR 50MG TAB PO SCH (17:00)
[2020-07-28] MEDS: LAMIVUDINE 10 MG/ML PO SCH (17:00)
[2020-07-28] MEDS: RITONAVIR 100 MG TABLET PO SCH (17:00)
[2020-07-28] MEDS: DARUNAVIR 800 MG TABLET PO SCH (17:01)
[2020-07-28] MEDS: ONDANSETRON ODT 4 MG PO PRN (17:02)
[2020-07-28] MEDS: SULFAMETH./TRIMETHOPRIM DS 800MG/160MG TABLET PO SCH (17:05)
[2020-07-28] MEDS: MICAFUNGIN 150 MG in SODIUM CHLORIDE 0.9% 100 ML IV SCH (17:10)
[2020-07-28 18:52] VITALS: BP 110/74
[2020-07-28] MEDS: SODIUM CHLORIDE 0.9% IVPB SCH (20:31)
[2020-07-28] MEDS: GANCICLOVIR IVPB SCH (20:31)
[2020-07-28] MEDS: ATORVASTATIN 20 MG TABLET PO SCH (20:31)
[2020-07-29 00:43] VITALS: BP 110/64
[2020-07-29] MEDS: DIPHENHYDRAMINE 12.5MG/5ML, 10ML UDC PO PRN ×2 (01:07→21:55)
[2020-07-29] MEDS: NYSTATIN 500,000 UNITS/5 ML UDC PO SCH ×4 (04:48→21:23)
[2020-07-29] MEDS: HYDROcodone/APAP 5/325 TABLET PO PRN (04:49)
[2020-07-29] MEDS: LACTOBACILLUS CHEW TABLET PO SCH ×4 (04:49→21:23)
[2020-07-29] MEDS: VANCOMYCIN 50 MG/ML ORAL SUSP PO SCH ×4 (04:49→21:24)
[2020-07-29] MEDS: CARVEDILOL 25 MG TABLET PO SCH ×2 (04:53→17:45)
[2020-07-29 04:54] VITALS: BP 101/62
[2020-07-29 06:55] VITALS: BP 98/62
[2020-07-29] MEDS: CHOLESTYRAMINE LIGHT 4GM PACKET PO SCH ×3 (08:07→21:32)
[2020-07-29] MEDS: SODIUM BICARBONATE 650 MG TABLET PO SCH ×2 (09:00→21:00)
[2020-07-29] MEDS: LISINOPRIL 10 MG TABLET PO SCH (09:00)
[2020-07-29] MEDS: RITONAVIR 100 MG TABLET PO SCH (09:40)
[2020-07-29] MEDS: SULFAMETH./TRIMETHOPRIM DS 800MG/160MG TABLET PO SCH (09:40)
[2020-07-29] MEDS: DOLUTEGRAVIR 50MG TAB PO SCH (09:43)
[2020-07-29] MEDS: DARUNAVIR 800 MG TABLET PO SCH (09:43)
[2020-07-29] MEDS: SEVELAMER CARBONATE 800MG TAB PO SCH ×3 (09:43→17:36)
[2020-07-29] MEDS: LAMIVUDINE 10 MG/ML PO SCH (09:44)
[2020-07-29 12:20] VITALS: BP 99/66
[2020-07-29] MEDS: MICAFUNGIN 150 MG in SODIUM CHLORIDE 0.9% 100 ML IV SCH (17:36)
[2020-07-29 20:06] VITALS: BP 118/76
[2020-07-29] MEDS: ATORVASTATIN 20 MG TABLET PO SCH (21:23)
[2020-07-29] MEDS: ONDANSETRON ODT 4 MG PO PRN (21:53)
[2020-07-30] VITALS (8 sets, daily range): BP systolic 102–126; BP diastolic 63–74
[2020-07-30] MEDS: VANCOMYCIN 50 MG/ML ORAL SUSP PO SCH ×4 (04:05→21:42)
[2020-07-30] MEDS: CARVEDILOL 25 MG TABLET PO SCH ×2 (06:11→19:28)
[2020-07-30] MEDS: LACTOBACILLUS CHEW TABLET PO SCH ×4 (06:11→21:41)
[2020-07-30] MEDS: NYSTATIN 500,000 UNITS/5 ML UDC PO SCH ×4 (06:11→21:41)
[2020-07-30 07:15] LABS: MEAN CORPUSCULAR HEMOGLOBIN 28.5 pg (27.5-34.5); MEAN CORPUSCULAR HGB CONC 31.3 g/dL (33.2-36.2); MEAN PLATELET VOLUME 8.6 fL (7.4-10.4); PLATELET COUNT 118 x10^3/uL (130-400); RED CELL DISTRIBUTION WIDTH 19.7 % (9.4-14.8)
[2020-07-30 07:17] LABS: ALBUMIN 2.5 g/dL (3.4-5.0); ANION GAP 11 mmol/L (5-15); CALCIUM 8.4 mg/dL (8.5-10.1); CHLORIDE 102 mmol/L (98-107); CREATININE 8.22 mg/dL (0.7-1.3)
[2020-07-30 07:30] LABS: BASOPHILS # (AUTO) 0.01 x10^3/uL (0-0.1); BASOPHILS % (AUTO) 0 % (0-1); EOSINOPHILS # (AUTO) 0.17 x10^3/uL (0-0.4); EOSINOPHILS % (AUTO) 5 % (1-7); LYMPHOCYTES # (AUTO) 0.63 x10^3/uL (1-3.4); LYMPHOCYTES % (AUTO) 17 % (22-44); MD SCAN; MONOCYTES % (AUTO) 11 % (2-9); NEUTROPHILS # (AUTO) 2.48 x10^3/uL (1.8-6.8); NEUTROPHILS % (AUTO) 67 % (42-75)
[2020-07-30] MEDS: SODIUM BICARBONATE 650 MG TABLET PO SCH ×2 (09:00→21:00)
[2020-07-30] MEDS: LAMIVUDINE 10 MG/ML PO SCH (09:00)
[2020-07-30] MEDS: DOLUTEGRAVIR 50MG TAB PO SCH (09:48)
[2020-07-30] MEDS: AZITHROMYCIN 600 MG TABLET PO SCH (09:48)
[2020-07-30] MEDS: RITONAVIR 100 MG TABLET PO SCH (09:48)
[2020-07-30] MEDS: DARUNAVIR 800 MG TABLET PO SCH (09:48)
[2020-07-30] MEDS: SEVELAMER CARBONATE 800MG TAB PO SCH ×3 (09:49→17:39)
[2020-07-30] MEDS: LISINOPRIL 10 MG TABLET PO SCH (09:49)
[2020-07-30] MEDS: SULFAMETH./TRIMETHOPRIM DS 800MG/160MG TABLET PO SCH (09:49)
[2020-07-30] MEDS: CHOLESTYRAMINE LIGHT 4GM PACKET PO SCH ×3 (09:50→21:48)
[2020-07-30] MEDS ORDERED: ARANESP 100 MCG/ML **ESRD SQ SCH (13:33)
[2020-07-30] MEDS: MICAFUNGIN 150 MG in SODIUM CHLORIDE 0.9% 100 ML IV SCH (17:59)
[2020-07-30] MEDS: ATORVASTATIN 20 MG TABLET PO SCH (21:41)
[2020-07-31] VITALS (8 sets, daily range): BP systolic 100–124; BP diastolic 58–80
[2020-07-31] MEDS: VANCOMYCIN 50 MG/ML ORAL SUSP PO SCH ×4 (04:22→22:03)
[2020-07-31] MEDS: HYDROcodone/APAP 5/325 TABLET PO PRN ×2 (04:23→20:53)
[2020-07-31] MEDS: NYSTATIN 500,000 UNITS/5 ML UDC PO SCH ×4 (05:22→20:52)
[2020-07-31] MEDS: LACTOBACILLUS CHEW TABLET PO SCH ×4 (05:22→20:53)
[2020-07-31] MEDS: CARVEDILOL 25 MG TABLET PO SCH ×2 (05:22→17:49)
[2020-07-31 06:54] LABS: ALBUMIN 2.4 g/dL (3.4-5.0); ANION GAP 12 mmol/L (5-15); CHLORIDE 105 mmol/L (98-107)
[2020-07-31 06:57] LABS: ALANINE AMINOTRANSFERASE 15 U/L (12-78); ALKALINE PHOSPHATASE 262 U/L (45-117); BILIRUBIN,TOTAL 0.3 mg/dL (0.2-1.0); CREATININE 9.39 mg/dL (0.7-1.3); TOTAL PROTEIN 7.1 g/dL (6.4-8.2)
[2020-07-31 07:27] LABS: BASOPHILS % (AUTO) 0 % (0-1); EOSINOPHILS # (AUTO) 0.14 x10^3/uL (0-0.4); EOSINOPHILS % (AUTO) 4 % (1-7); LYMPHOCYTES % (AUTO) 13 % (22-44); MD MORPH REVIEW ONLY; MEAN CORPUSCULAR HEMOGLOBIN 28.7 pg (27.5-34.5); MEAN CORPUSCULAR HGB CONC 31.6 g/dL (33.2-36.2); MONOCYTES % (AUTO) 8 % (2-9); NEUTROPHILS # (AUTO) 2.86 x10^3/uL (1.8-6.8); NEUTROPHILS % (AUTO) 75 % (42-75); PLATELET COUNT 120 x10^3/uL (130-400); RED BLOOD COUNT 2.07 x10^6/uL (4.38-5.82); RED CELL DISTRIBUTION WIDTH 19.5 % (9.4-14.8)
[2020-07-31 07:28] LABS: ANISOCYTOSIS 1+; HYPOCHROMIA 1+; OVALOCYTES 1+
[2020-07-31 07:30] LABS: <PLATELET ESTIMATE> DECREASED; <PLT MORPHOLOGY> NORMAL PLT MORPH
[2020-07-31] MEDS: CHOLESTYRAMINE LIGHT 4GM PACKET PO SCH ×3 (09:00→20:53)
[2020-07-31] MEDS: SODIUM BICARBONATE 650 MG TABLET PO SCH ×2 (09:00→20:54)
[2020-07-31] MEDS: LAMIVUDINE 10 MG/ML PO SCH (09:04)
[2020-07-31] MEDS: SULFAMETH./TRIMETHOPRIM DS 800MG/160MG TABLET PO SCH (09:05)
[2020-07-31] MEDS: DARUNAVIR 800 MG TABLET PO SCH (09:05)
[2020-07-31] MEDS: DOLUTEGRAVIR 50MG TAB PO SCH (09:05)
[2020-07-31] MEDS: SEVELAMER CARBONATE 800MG TAB PO SCH ×3 (09:05→16:22)
[2020-07-31] MEDS: RITONAVIR 100 MG TABLET PO SCH (09:06)
[2020-07-31] MEDS: ONDANSETRON 2MG/ML, 2ML IVPush PRN (13:33)
[2020-07-31] MEDS: MICAFUNGIN 150 MG in SODIUM CHLORIDE 0.9% 100 ML IV SCH (16:21)
[2020-07-31] MEDS: LISINOPRIL 10 MG TABLET PO SCH (17:49)
[2020-07-31] MEDS: ATORVASTATIN 20 MG TABLET PO SCH (20:53)
[2020-07-31] MEDS: GANCICLOVIR IVPB SCH (21:43)
[2020-07-31] MEDS: SODIUM CHLORIDE 0.9% IVPB SCH (21:43)
[2020-08-01] VITALS (7 sets, daily range): BP systolic 96–119; BP diastolic 61–81
[2020-08-01] MEDS: VANCOMYCIN 50 MG/ML ORAL SUSP PO SCH ×4 (04:02→22:37)
[2020-08-01] MEDS: CARVEDILOL 25 MG TABLET PO SCH ×2 (05:18→17:36)
[2020-08-01] MEDS: LACTOBACILLUS CHEW TABLET PO SCH ×4 (05:18→22:37)
[2020-08-01] MEDS: NYSTATIN 500,000 UNITS/5 ML UDC PO SCH ×4 (05:18→22:36)
[2020-08-01 06:18] LABS: MEAN CORPUSCULAR HEMOGLOBIN 29.5 pg (27.5-34.5); MEAN CORPUSCULAR HGB CONC 32.7 g/dL (33.2-36.2); RED BLOOD COUNT 2.23 x10^6/uL (4.38-5.82); RED CELL DISTRIBUTION WIDTH 18.3 % (9.4-14.8)
[2020-08-01 06:28] LABS: ANION GAP 11 mmol/L (5-15); CALCIUM 7.9 mg/dL (8.5-10.1); CHLORIDE 108 mmol/L (98-107)
[2020-08-01 06:29] LABS: CREATININE 7.33 mg/dL (0.7-1.3)
[2020-08-01 06:38] LABS: MD YES; MEAN PLATELET VOLUME 8.3 fL (7.4-10.4); PLATELET COUNT 152 x10^3/uL (130-400)
[2020-08-01 06:41] LABS: BAND#(MANUAL) 0.13 x10^3/uL; BANDS%(MANUAL) 3 % (0-7); BASOS#(MANUAL) 0.04 x10^3/uL (0-0.1); BASOS% (MANUAL) 1 % (0-1); EOS#(MANUAL) 0.09 x10^3/uL (0.0-0.4); EOS% (MANUAL) 2 % (1-7); LYMPHS% (MANUAL) 7 % (22-44); MONOS#(MANUAL) 0.56 x10^3/uL (0.3-2.7); MONOS% (MANUAL) 13 % (2-9); SEG#(MANUAL) 3.18 x10^3/uL (1.8-6.8); SEGS% (MANUAL) 74 % (42-75)
[2020-08-01 06:42] LABS: ANISOCYTOSIS 1+; OVALOCYTES 1+; TARGET CELLS 1+
[2020-08-01 06:43] LABS: TEAR DROPS 1+
[2020-08-01 06:44] LABS: <PLATELET ESTIMATE> DECREASED; <PLT MORPHOLOGY> NORMAL PLT MORPH; POLYCHROMASIA 1+
[2020-08-01] MEDS: DARUNAVIR 800 MG TABLET PO SCH (08:54)
[2020-08-01] MEDS: SULFAMETH./TRIMETHOPRIM DS 800MG/160MG TABLET PO SCH (08:54)
[2020-08-01] MEDS: SEVELAMER CARBONATE 800MG TAB PO SCH ×3 (08:54→17:25)
[2020-08-01] MEDS: LISINOPRIL 10 MG TABLET PO SCH (08:54)
[2020-08-01] MEDS: RITONAVIR 100 MG TABLET PO SCH (08:54)
[2020-08-01] MEDS: DOLUTEGRAVIR 50MG TAB PO SCH (08:54)
[2020-08-01] MEDS: LAMIVUDINE 10 MG/ML PO SCH (08:55)
[2020-08-01] MEDS: CHOLESTYRAMINE LIGHT 4GM PACKET PO SCH ×3 (08:55→22:37)
[2020-08-01] MEDS: SODIUM BICARBONATE 650 MG TABLET PO SCH ×2 (08:57→22:37)
[2020-08-01] MEDS: MICAFUNGIN 150 MG in SODIUM CHLORIDE 0.9% 100 ML IV SCH (17:25)
[2020-08-01] MEDS: HYDROcodone/APAP 5/325 TABLET PO PRN (22:37)
[2020-08-01] MEDS: ATORVASTATIN 20 MG TABLET PO SCH (22:37)
[2020-08-01] MEDS: ONDANSETRON 2MG/ML, 2ML IVPush PRN (23:15)
[2020-08-02 01:03] VITALS: BP 113/69
[2020-08-02 01:23] VITALS: BP 115/71
[2020-08-02] MEDS: NYSTATIN 500,000 UNITS/5 ML UDC PO SCH ×4 (05:33→21:06)
[2020-08-02] MEDS: LACTOBACILLUS CHEW TABLET PO SCH ×4 (05:34→21:06)
[2020-08-02] MEDS: VANCOMYCIN 50 MG/ML ORAL SUSP PO SCH ×4 (05:34→23:15)
[2020-08-02] MEDS: CARVEDILOL 25 MG TABLET PO SCH ×2 (05:37→17:44)
[2020-08-02 05:38] VITALS: BP 123/80
[2020-08-02 07:02] LABS: CHLORIDE 105 mmol/L (98-107); MEAN CORPUSCULAR HEMOGLOBIN 29.1 pg (27.5-34.5); MEAN CORPUSCULAR HGB CONC 32.1 g/dL (33.2-36.2); MEAN PLATELET VOLUME 8.4 fL (7.4-10.4); PLATELET COUNT 121 x10^3/uL (130-400); RED BLOOD COUNT 2.53 x10^6/uL (4.38-5.82); RED CELL DISTRIBUTION WIDTH 17.3 % (9.4-14.8)
[2020-08-02 07:07] LABS: ALANINE AMINOTRANSFERASE 17 U/L (12-78); ALBUMIN 2.5 g/dL (3.4-5.0); ALKALINE PHOSPHATASE 276 U/L (45-117); ANION GAP 14 mmol/L (5-15); BILIRUBIN,TOTAL 0.4 mg/dL (0.2-1.0); CALCIUM 7.9 mg/dL (8.5-10.1); CREATININE 8.56 mg/dL (0.7-1.3); TOTAL PROTEIN 7.5 g/dL (6.4-8.2)
[2020-08-02 07:13] LABS: MD YES
[2020-08-02 07:15] LABS: ANISOCYTOSIS 1+; BAND#(MANUAL) 0.06 x10^3/uL; BANDS%(MANUAL) 1 % (0-7); BASOS#(MANUAL) 0.06 x10^3/uL (0-0.1); BASOS% (MANUAL) 1 % (0-1); EOS#(MANUAL) 0.06 x10^3/uL (0.0-0.4); EOS% (MANUAL) 1 % (1-7); LYMPH#(MANUAL) 0.99 x10^3/uL (1-3.4); LYMPHS% (MANUAL) 18 % (22-44); MONOS#(MANUAL) 0.33 x10^3/uL (0.3-2.7); MONOS% (MANUAL) 6 % (2-9); POLYCHROMASIA 1+; SEG#(MANUAL) 4.02 x10^3/uL (1.8-6.8); SEGS% (MANUAL) 73 % (42-75)
[2020-08-02 07:16] LABS: <PLATELET ESTIMATE> DECREASED; <PLT MORPHOLOGY> NORMAL PLT MORPH; OVALOCYTES 1+; TARGET CELLS 1+
[2020-08-02 07:29] VITALS: BP 102/64
[2020-08-02] MEDS: SEVELAMER CARBONATE 800MG TAB PO SCH ×3 (08:54→17:30)
[2020-08-02] MEDS: RITONAVIR 100 MG TABLET PO SCH (08:54)
[2020-08-02] MEDS: LAMIVUDINE 10 MG/ML PO SCH (08:54)
[2020-08-02] MEDS: DARUNAVIR 800 MG TABLET PO SCH (08:55)
[2020-08-02] MEDS: CHOLESTYRAMINE LIGHT 4GM PACKET PO SCH ×3 (08:55→21:06)
[2020-08-02] MEDS: SULFAMETH./TRIMETHOPRIM DS 800MG/160MG TABLET PO SCH (08:56)
[2020-08-02] MEDS: DOLUTEGRAVIR 50MG TAB PO SCH (08:57)
[2020-08-02] MEDS: SODIUM BICARBONATE 650 MG TABLET PO SCH ×2 (08:57→21:06)
[2020-08-02] MEDS: LISINOPRIL 10 MG TABLET PO SCH (09:00)
[2020-08-02 12:30] VITALS: BP 132/86
[2020-08-02 12:40] LABS: INTERNATIONAL NORMALIZED RATIO 1.26 (0.93-1.1)
[2020-08-02] MEDS: HYDROcodone/APAP 5/325 TABLET PO PRN (17:43)
[2020-08-02] MEDS: GABAPENTIN 100 MG CAPSULE PO PRN (17:43)
[2020-08-02] MEDS: MICAFUNGIN 150 MG in SODIUM CHLORIDE 0.9% 100 ML IV SCH (18:02)
[2020-08-02 18:28] VITALS: BP 121/76
[2020-08-02] MEDS: SODIUM CHLORIDE 0.9% IVPB SCH (19:51)
[2020-08-02] MEDS: GANCICLOVIR IVPB SCH (19:51)
[2020-08-02] MEDS: ATORVASTATIN 20 MG TABLET PO SCH (21:06)
[2020-08-03 00:24] VITALS: BP 117/75
[2020-08-03] MEDS: CARVEDILOL 25 MG TABLET PO SCH ×2 (05:18→17:10)
[2020-08-03] MEDS: NYSTATIN 500,000 UNITS/5 ML UDC PO SCH ×4 (05:18→21:09)
[2020-08-03] MEDS: LACTOBACILLUS CHEW TABLET PO SCH ×4 (05:18→21:09)
[2020-08-03] MEDS: VANCOMYCIN 50 MG/ML ORAL SUSP PO SCH ×4 (05:19→23:33)
[2020-08-03 07:27] VITALS: BP 112/70
[2020-08-03 10:06] VITALS: BP 113/64
[2020-08-03] MEDS: CHOLESTYRAMINE LIGHT 4GM PACKET PO SCH ×3 (10:08→21:09)
[2020-08-03] MEDS: SODIUM BICARBONATE 650 MG TABLET PO SCH ×2 (10:10→21:09)
[2020-08-03] MEDS: SULFAMETH./TRIMETHOPRIM DS 800MG/160MG TABLET PO SCH (10:11)
[2020-08-03] MEDS: SEVELAMER CARBONATE 800MG TAB PO SCH ×3 (10:11→17:10)
[2020-08-03] MEDS: RITONAVIR 100 MG TABLET PO SCH (10:11)
[2020-08-03] MEDS: DARUNAVIR 800 MG TABLET PO SCH (10:11)
[2020-08-03] MEDS: LISINOPRIL 10 MG TABLET PO SCH (10:11)
[2020-08-03] MEDS: DOLUTEGRAVIR 50MG TAB PO SCH (10:11)
[2020-08-03] MEDS: LAMIVUDINE 10 MG/ML PO SCH (10:18)
[2020-08-03 10:35] LABS: MEAN CORPUSCULAR HEMOGLOBIN 29.4 pg (27.5-34.5); MEAN CORPUSCULAR HGB CONC 32.1 g/dL (33.2-36.2); MEAN PLATELET VOLUME 8.1 fL (7.4-10.4); PLATELET COUNT 125 x10^3/uL (130-400); RED BLOOD COUNT 2.49 x10^6/uL (4.38-5.82)
[2020-08-03 10:37] LABS: ANION GAP 10 mmol/L (5-15); CALCIUM 8.2 mg/dL (8.5-10.1); CHLORIDE 107 mmol/L (98-107); CREATININE 7.17 mg/dL (0.7-1.3)
[2020-08-03 11:00] LABS: BASOPHILS # (AUTO) 0.03 x10^3/uL (0-0.1); BASOPHILS % (AUTO) 1 % (0-1); EOSINOPHILS # (AUTO) 0.05 x10^3/uL (0-0.4); EOSINOPHILS % (AUTO) 1 % (1-7); LYMPHOCYTES # (AUTO) 0.52 x10^3/uL (1-3.4); LYMPHOCYTES % (AUTO) 11 % (22-44); MONOCYTES % (AUTO) 10 % (2-9); NEUTROPHILS # (AUTO) 3.69 x10^3/uL (1.8-6.8); NEUTROPHILS % (AUTO) 77 % (42-75)
[2020-08-03 11:01] LABS: MD SCAN
[2020-08-03] MEDS: HYDROcodone/APAP 5/325 TABLET PO PRN (12:32)
[2020-08-03 13:25] VITALS: BP 123/68
[2020-08-03] MEDS: MICAFUNGIN 150 MG in SODIUM CHLORIDE 0.9% 100 ML IV SCH (17:05)
[2020-08-03 18:48] LABS: CRYPTOSPORIDIUM ANTIGEN Negative (Negative)
[2020-08-03 19:32] VITALS: BP 121/81
[2020-08-03] MEDS: ATORVASTATIN 20 MG TABLET PO SCH (21:09)
[2020-08-03] MEDS: GABAPENTIN 100 MG CAPSULE PO PRN (21:13)
[2020-08-04 00:10] VITALS: BP 113/72
[2020-08-04] MEDS: NYSTATIN 500,000 UNITS/5 ML UDC PO SCH ×4 (05:43→20:57)
[2020-08-04] MEDS: CARVEDILOL 25 MG TABLET PO SCH ×2 (05:44→18:05)
[2020-08-04] MEDS: VANCOMYCIN 50 MG/ML ORAL SUSP PO SCH ×4 (05:44→23:42)
[2020-08-04] MEDS: LACTOBACILLUS CHEW TABLET PO SCH ×4 (05:44→20:57)
[2020-08-04 07:21] VITALS: BP 109/75
[2020-08-04 08:56] LABS: MEAN CORPUSCULAR HEMOGLOBIN 29.7 pg (27.5-34.5); MEAN CORPUSCULAR HGB CONC 32.5 g/dL (33.2-36.2); MEAN PLATELET VOLUME 7.6 fL (7.4-10.4); PLATELET COUNT 120 x10^3/uL (130-400); RED BLOOD COUNT 2.36 x10^6/uL (4.38-5.82); RED CELL DISTRIBUTION WIDTH 18.4 % (9.4-14.8)
[2020-08-04 09:05] LABS: ANION GAP 12 mmol/L (5-15); CALCIUM 8.1 mg/dL (8.5-10.1); CHLORIDE 103 mmol/L (98-107); CREATININE 8.31 mg/dL (0.7-1.3)
[2020-08-04] MEDS: SEVELAMER CARBONATE 800MG TAB PO SCH ×3 (09:10→18:04)
[2020-08-04] MEDS: RITONAVIR 100 MG TABLET PO SCH (09:10)
[2020-08-04] MEDS: LAMIVUDINE 10 MG/ML PO SCH (09:10)
[2020-08-04] MEDS: CHOLESTYRAMINE LIGHT 4GM PACKET PO SCH ×3 (09:10→20:57)
[2020-08-04] MEDS: SODIUM BICARBONATE 650 MG TABLET PO SCH ×2 (09:10→20:57)
[2020-08-04] MEDS: SULFAMETH./TRIMETHOPRIM DS 800MG/160MG TABLET PO SCH (09:10)
[2020-08-04] MEDS: DARUNAVIR 800 MG TABLET PO SCH (09:10)
[2020-08-04] MEDS: DOLUTEGRAVIR 50MG TAB PO SCH (09:10)
[2020-08-04 09:11] LABS: BASOPHILS # (AUTO) 0.01 x10^3/uL (0-0.1); BASOPHILS % (AUTO) 0 % (0-1); EOSINOPHILS # (AUTO) 0.02 x10^3/uL (0-0.4); EOSINOPHILS % (AUTO) 1 % (1-7); LYMPHOCYTES # (AUTO) 0.61 x10^3/uL (1-3.4); LYMPHOCYTES % (AUTO) 13 % (22-44); MD SCAN; MONOCYTES # (AUTO) 0.43 x10^3/uL (0.2-0.8); MONOCYTES % (AUTO) 9 % (2-9); NEUTROPHILS % (AUTO) 77 % (42-75)
[2020-08-04] MEDS: LISINOPRIL 10 MG TABLET PO SCH (09:31)
[2020-08-04 14:45] VITALS: BP 112/78
[2020-08-04] MEDS: GANCICLOVIR IVPB SCH (17:31)
[2020-08-04] MEDS: SODIUM CHLORIDE 0.9% IVPB SCH (17:31)
[2020-08-04 17:55] VITALS: BP 130/87
[2020-08-04] MEDS: MICAFUNGIN 150 MG in SODIUM CHLORIDE 0.9% 100 ML IV SCH (18:55)
[2020-08-04 19:46] VITALS: BP 113/73
[2020-08-04] MEDS: ATORVASTATIN 20 MG TABLET PO SCH (20:57)
[2020-08-05 01:15] VITALS: BP 127/85
[2020-08-05] MEDS: SIMETHICONE 125 MG CHEW TAB PO PRN ×3 (04:07→20:46)
[2020-08-05] MEDS: LACTOBACILLUS CHEW TABLET PO SCH ×4 (05:43→20:46)
[2020-08-05] MEDS: NYSTATIN 500,000 UNITS/5 ML UDC PO SCH ×4 (05:43→20:45)
[2020-08-05] MEDS: CARVEDILOL 25 MG TABLET PO SCH ×2 (05:43→17:24)
[2020-08-05] MEDS: VANCOMYCIN 50 MG/ML ORAL SUSP PO SCH ×3 (05:43→17:34)
[2020-08-05 06:30] VITALS: BP 117/76
[2020-08-05] MEDS: LAMIVUDINE 10 MG/ML PO SCH (08:04)
[2020-08-05] MEDS: SULFAMETH./TRIMETHOPRIM DS 800MG/160MG TABLET PO SCH (08:04)
[2020-08-05] MEDS: DOLUTEGRAVIR 50MG TAB PO SCH (08:04)
[2020-08-05] MEDS: RITONAVIR 100 MG TABLET PO SCH (08:05)
[2020-08-05] MEDS: SEVELAMER CARBONATE 800MG TAB PO SCH ×3 (08:05→17:24)
[2020-08-05] MEDS: DARUNAVIR 800 MG TABLET PO SCH (08:05)
[2020-08-05] MEDS: LISINOPRIL 10 MG TABLET PO SCH (08:06)
[2020-08-05] MEDS: CHOLESTYRAMINE LIGHT 4GM PACKET PO SCH ×3 (08:06→20:45)
[2020-08-05] MEDS: SODIUM BICARBONATE 650 MG TABLET PO SCH ×2 (08:07→20:46)
[2020-08-05 12:00] VITALS: BP 119/81
[2020-08-05] MEDS ORDERED: DIPHENOXYLATE/ATROPINE TABLET PO SCH (12:30)
[2020-08-05] MEDS: ARANESP 100 MCG/ML **ESRD SQ SCH (12:35)
[2020-08-05] MEDS: DIPHENOXYLATE/ATROPINE TABLET PO SCH (13:15)
[2020-08-05] MEDS: MICAFUNGIN 150 MG in SODIUM CHLORIDE 0.9% 100 ML IV SCH (17:34)
[2020-08-05 19:50] VITALS: BP 124/86
[2020-08-05] MEDS: ATORVASTATIN 20 MG TABLET PO SCH (20:46)
[2020-08-05] MEDS ORDERED: TEMAZEPAM 15 MG CAPSULE ONE (21:10)
[2020-08-05] MEDS: TEMAZEPAM 15 MG CAPSULE PO PRN (21:11)
[2020-08-05] MEDS: GABAPENTIN 100 MG CAPSULE PO PRN (21:12)
[2020-08-05] MEDS: HYDROcodone/APAP 5/325 TABLET PO PRN (21:12)
[2020-08-06 00:09] VITALS: BP 120/77
[2020-08-06] MEDS: VANCOMYCIN 50 MG/ML ORAL SUSP PO SCH ×2 (00:09→05:27)
[2020-08-06 05:20] VITALS: BP 130/89
[2020-08-06] MEDS: LACTOBACILLUS CHEW TABLET PO SCH ×4 (05:27→21:46)
[2020-08-06] MEDS: NYSTATIN 500,000 UNITS/5 ML UDC PO SCH (05:27)
[2020-08-06] MEDS: CARVEDILOL 25 MG TABLET PO SCH ×2 (05:27→16:28)
[2020-08-06] MEDS: SIMETHICONE 125 MG CHEW TAB PO PRN ×3 (05:37→21:46)
[2020-08-06] MEDS: LISINOPRIL 10 MG TABLET PO SCH (08:07)
[2020-08-06] MEDS: CHOLESTYRAMINE LIGHT 4GM PACKET PO SCH ×3 (08:07→21:46)
[2020-08-06] MEDS: DARUNAVIR 800 MG TABLET PO SCH (08:07)
[2020-08-06] MEDS: SULFAMETH./TRIMETHOPRIM DS 800MG/160MG TABLET PO SCH (08:07)
[2020-08-06] MEDS: AZITHROMYCIN 600 MG TABLET PO SCH (08:08)
[2020-08-06] MEDS: DIPHENOXYLATE/ATROPINE TABLET PO SCH (08:08)
[2020-08-06] MEDS: RITONAVIR 100 MG TABLET PO SCH (08:08)
[2020-08-06] MEDS: SEVELAMER CARBONATE 800MG TAB PO SCH ×3 (08:09→16:28)
[2020-08-06] MEDS: SODIUM BICARBONATE 650 MG TABLET PO SCH ×2 (08:09→21:46)
[2020-08-06] MEDS: LAMIVUDINE 10 MG/ML PO SCH (08:09)
[2020-08-06] MEDS: DOLUTEGRAVIR 50MG TAB PO SCH (08:09)
[2020-08-06 08:28] VITALS: BP 113/74
[2020-08-06 14:18] VITALS: BP 121/82
[2020-08-06 19:32] VITALS: BP 117/74
[2020-08-06] MEDS: TEMAZEPAM 15 MG CAPSULE PO PRN (21:46)
[2020-08-06] MEDS: ATORVASTATIN 20 MG TABLET PO SCH (21:46)
[2020-08-06] MEDS: GABAPENTIN 100 MG CAPSULE PO PRN (21:47)
[2020-08-06] MEDS: HYDROcodone/APAP 5/325 TABLET PO PRN (21:47)
[2020-08-07] VITALS (9 sets, daily range): BP systolic 110–138; BP diastolic 67–88
[2020-08-07] MEDS: LACTOBACILLUS CHEW TABLET PO SCH ×4 (05:47→21:04)
[2020-08-07] MEDS: CARVEDILOL 25 MG TABLET PO SCH ×2 (05:47→16:50)
[2020-08-07] MEDS: SIMETHICONE 125 MG CHEW TAB PO PRN ×3 (05:50→21:04)
[2020-08-07] MEDS: LISINOPRIL 10 MG TABLET PO SCH (07:59)
[2020-08-07] MEDS: RITONAVIR 100 MG TABLET PO SCH (07:59)
[2020-08-07] MEDS: SULFAMETH./TRIMETHOPRIM DS 800MG/160MG TABLET PO SCH (07:59)
[2020-08-07] MEDS: DIPHENOXYLATE/ATROPINE TABLET PO SCH ×2 (07:59→21:04)
[2020-08-07] MEDS: DARUNAVIR 800 MG TABLET PO SCH (07:59)
[2020-08-07] MEDS: SEVELAMER CARBONATE 800MG TAB PO SCH ×3 (07:59→16:50)
[2020-08-07] MEDS: DOLUTEGRAVIR 50MG TAB PO SCH (08:00)
[2020-08-07] MEDS: CHOLESTYRAMINE LIGHT 4GM PACKET PO SCH ×3 (08:00→21:03)
[2020-08-07] MEDS: LAMIVUDINE 10 MG/ML PO SCH (08:00)
[2020-08-07] MEDS: SODIUM BICARBONATE 650 MG TABLET PO SCH ×2 (08:00→21:04)
[2020-08-07 12:20] LABS: MEAN CORPUSCULAR HEMOGLOBIN 29.8 pg (27.5-34.5); MEAN CORPUSCULAR HGB CONC 32.2 g/dL (33.2-36.2); MEAN PLATELET VOLUME 7.9 fL (7.4-10.4); PLATELET COUNT 114 x10^3/uL (130-400); RED BLOOD COUNT 2.26 x10^6/uL (4.38-5.82); RED CELL DISTRIBUTION WIDTH 18.9 % (9.4-14.8)
[2020-08-07 12:23] LABS: ALBUMIN 2.5 g/dL (3.4-5.0); ANION GAP 11 mmol/L (5-15); CALCIUM 8.1 mg/dL (8.5-10.1); CHLORIDE 110 mmol/L (98-107)
[2020-08-07 12:42] LABS: BASOPHILS % (AUTO) 0 % (0-1); EOSINOPHILS # (AUTO) 0.02 x10^3/uL (0-0.4); EOSINOPHILS % (AUTO) 0 % (1-7); LYMPHOCYTES # (AUTO) 0.41 x10^3/uL (1-3.4); LYMPHOCYTES % (AUTO) 10 % (22-44); MD SCAN; MONOCYTES # (AUTO) 0.36 x10^3/uL (0.2-0.8); MONOCYTES % (AUTO) 9 % (2-9); NEUTROPHILS # (AUTO) 3.42 x10^3/uL (1.8-6.8); NEUTROPHILS % (AUTO) 81 % (42-75)
[2020-08-07] MEDS: GANCICLOVIR IVPB SCH (19:19)
[2020-08-07] MEDS: SODIUM CHLORIDE 0.9% IVPB SCH (19:19)
[2020-08-07] MEDS: TEMAZEPAM 15 MG CAPSULE PO PRN (21:04)
[2020-08-07] MEDS: GABAPENTIN 100 MG CAPSULE PO PRN (21:04)
[2020-08-07] MEDS: HYDROcodone/APAP 5/325 TABLET PO PRN (21:04)
[2020-08-07] MEDS: ATORVASTATIN 20 MG TABLET PO SCH (21:04)
[2020-08-08 01:18] VITALS: BP 135/64
[2020-08-08 06:15] VITALS: BP 129/84
[2020-08-08] MEDS: LACTOBACILLUS CHEW TABLET PO SCH ×4 (06:15→21:12)
[2020-08-08] MEDS: SIMETHICONE 125 MG CHEW TAB PO PRN ×3 (06:16→21:28)
[2020-08-08] MEDS: CARVEDILOL 25 MG TABLET PO SCH ×2 (06:16→17:22)
[2020-08-08 07:47] VITALS: BP 118/77
[2020-08-08] MEDS: RITONAVIR 100 MG TABLET PO SCH (09:05)
[2020-08-08] MEDS: LISINOPRIL 10 MG TABLET PO SCH (09:05)
[2020-08-08] MEDS: SEVELAMER CARBONATE 800MG TAB PO SCH ×3 (09:06→16:56)
[2020-08-08] MEDS: DOLUTEGRAVIR 50MG TAB PO SCH (09:06)
[2020-08-08] MEDS: SULFAMETH./TRIMETHOPRIM DS 800MG/160MG TABLET PO SCH (09:06)
[2020-08-08] MEDS: CHOLESTYRAMINE LIGHT 4GM PACKET PO SCH ×3 (09:06→21:13)
[2020-08-08] MEDS: DIPHENOXYLATE/ATROPINE TABLET PO SCH ×2 (09:06→21:12)
[2020-08-08] MEDS: DARUNAVIR 800 MG TABLET PO SCH (09:06)
[2020-08-08] MEDS: LAMIVUDINE 10 MG/ML PO SCH (09:06)
[2020-08-08] MEDS: SODIUM BICARBONATE 650 MG TABLET PO SCH ×2 (09:10→21:13)
[2020-08-08] MEDS: HYDROcodone/APAP 5/325 TABLET PO PRN ×2 (09:24→21:28)
[2020-08-08] MEDS: GABAPENTIN 100 MG CAPSULE PO PRN ×2 (09:24→21:28)
[2020-08-08 14:08] VITALS: BP 122/84
[2020-08-08 19:29] VITALS: BP 118/78
[2020-08-08] MEDS: ATORVASTATIN 20 MG TABLET PO SCH (21:12)
[2020-08-08] MEDS: TEMAZEPAM 15 MG CAPSULE PO PRN (21:12)
[2020-08-09 01:33] VITALS: BP 112/72
[2020-08-09] MEDS: CARVEDILOL 25 MG TABLET PO SCH ×2 (06:00→18:28)
[2020-08-09] MEDS: LACTOBACILLUS CHEW TABLET PO SCH ×4 (06:11→21:25)
[2020-08-09] MEDS: SIMETHICONE 125 MG CHEW TAB PO PRN (06:19)
[2020-08-09 07:07] VITALS: BP 128/88
[2020-08-09] MEDS: SULFAMETH./TRIMETHOPRIM DS 800MG/160MG TABLET PO SCH (08:50)
[2020-08-09] MEDS: DARUNAVIR 800 MG TABLET PO SCH (08:50)
[2020-08-09] MEDS: DOLUTEGRAVIR 50MG TAB PO SCH (08:50)
[2020-08-09] MEDS: CHOLESTYRAMINE LIGHT 4GM PACKET PO SCH (08:51)
[2020-08-09] MEDS: SEVELAMER CARBONATE 800MG TAB PO SCH ×3 (08:51→18:28)
[2020-08-09] MEDS: LAMIVUDINE 10 MG/ML PO SCH (08:51)
[2020-08-09] MEDS: RITONAVIR 100 MG TABLET PO SCH (08:51)
[2020-08-09] MEDS: DIPHENOXYLATE/ATROPINE TABLET PO SCH ×2 (08:51→21:25)
[2020-08-09] MEDS: LISINOPRIL 10 MG TABLET PO SCH (08:52)
[2020-08-09] MEDS: SODIUM BICARBONATE 650 MG TABLET PO SCH ×2 (08:52→21:25)
[2020-08-09 12:26] VITALS: BP 128/85
[2020-08-09 16:07] LABS: ALANINE AMINOTRANSFERASE 32 U/L (12-78); ALBUMIN 2.9 g/dL (3.4-5.0); ANION GAP 12 mmol/L (5-15); CALCIUM 8.3 mg/dL (8.5-10.1); CHLORIDE 112 mmol/L (98-107); CREATININE 9.44 mg/dL (0.7-1.3)
[2020-08-09 16:10] LABS: ALKALINE PHOSPHATASE 400 U/L (45-117); BILIRUBIN,TOTAL 0.4 mg/dL (0.2-1.0); TOTAL PROTEIN 8.4 g/dL (6.4-8.2)
[2020-08-09 16:20] LABS: MEAN CORPUSCULAR HGB CONC 31.5 g/dL (33.2-36.2); MEAN PLATELET VOLUME 8.7 fL (7.4-10.4); PLATELET COUNT 122 x10^3/uL (130-400); RED BLOOD COUNT 2.61 x10^6/uL (4.38-5.82); RED CELL DISTRIBUTION WIDTH 18.9 % (9.4-14.8)
[2020-08-09 16:52] LABS: MD YES
[2020-08-09 18:26] VITALS: BP 146/96
[2020-08-09 18:53] LABS: BAND#(MANUAL) 0.19 x10^3/uL; BANDS%(MANUAL) 4 % (0-7); LYMPH#(MANUAL) 0.58 x10^3/uL (1-3.4); LYMPHS% (MANUAL) 12 % (22-44); MONOS#(MANUAL) 0.48 x10^3/uL (0.3-2.7); MONOS% (MANUAL) 10 % (2-9); SEG#(MANUAL) 3.55 x10^3/uL (1.8-6.8); SEGS% (MANUAL) 74 % (42-75)
[2020-08-09 18:56] LABS: OVALOCYTES 1+
[2020-08-09 18:57] LABS: CRENATED 1+; HYPOCHROMIA 1+; SCHISTOCYTES 1+
[2020-08-09 19:00] LABS: ANISOCYTOSIS 1+; SPHEROCYTES 1+
[2020-08-09 19:01] LABS: <PLATELET ESTIMATE> DECREASED; <PLT MORPHOLOGY> NORMAL PLT MORPH
[2020-08-09] MEDS: SODIUM CHLORIDE 0.9% IVPB SCH (21:21)
[2020-08-09] MEDS: GANCICLOVIR IVPB SCH (21:21)
[2020-08-09] MEDS: TEMAZEPAM 15 MG CAPSULE PO PRN (21:24)
[2020-08-09] MEDS: ATORVASTATIN 20 MG TABLET PO SCH (21:25)
[2020-08-09] MEDS: GABAPENTIN 100 MG CAPSULE PO PRN (21:26)
[2020-08-10] VITALS (11 sets, daily range): BP systolic 112–135; BP diastolic 75–90
[2020-08-10] MEDS: SIMETHICONE 125 MG CHEW TAB PO PRN (00:07)
[2020-08-10] MEDS: LACTOBACILLUS CHEW TABLET PO SCH ×4 (05:22→21:04)
[2020-08-10] MEDS: DIPHENOXYLATE/ATROPINE TABLET PO SCH ×3 (05:22→21:04)
[2020-08-10] MEDS: CARVEDILOL 25 MG TABLET PO SCH ×2 (05:23→17:24)
[2020-08-10] MEDS: SEVELAMER CARBONATE 800MG TAB PO SCH ×3 (08:36→17:24)
[2020-08-10] MEDS: LAMIVUDINE 10 MG/ML PO SCH (08:36)
[2020-08-10] MEDS: DOLUTEGRAVIR 50MG TAB PO SCH (08:36)
[2020-08-10] MEDS: SODIUM BICARBONATE 650 MG TABLET PO SCH ×2 (08:37→21:05)
[2020-08-10] MEDS: DARUNAVIR 800 MG TABLET PO SCH (08:37)
[2020-08-10] MEDS: LISINOPRIL 10 MG TABLET PO SCH (08:37)
[2020-08-10] MEDS: RITONAVIR 100 MG TABLET PO SCH (08:37)
[2020-08-10] MEDS: SULFAMETH./TRIMETHOPRIM DS 800MG/160MG TABLET PO SCH (08:37)
[2020-08-10 12:29] LABS: CHLORIDE 106 mmol/L (98-107)
[2020-08-10 12:50] LABS: ALANINE AMINOTRANSFERASE 25 U/L (12-78); ALBUMIN 2.6 g/dL (3.4-5.0); ALKALINE PHOSPHATASE 368 U/L (45-117); ANION GAP 10 mmol/L (5-15); BILIRUBIN,TOTAL 0.4 mg/dL (0.2-1.0); CALCIUM 8.1 mg/dL (8.5-10.1); CREATININE 8.01 mg/dL (0.7-1.3); TOTAL PROTEIN 7.6 g/dL (6.4-8.2)
[2020-08-10 13:01] LABS: MEAN CORPUSCULAR HEMOGLOBIN 30.5 pg (27.5-34.5); MEAN CORPUSCULAR HGB CONC 33.3 g/dL (33.2-36.2); RED BLOOD COUNT 2.35 x10^6/uL (4.38-5.82); RED CELL DISTRIBUTION WIDTH 18.9 % (9.4-14.8)
[2020-08-10 13:04] LABS: HEMOGRAM NOTE RECHECKED
[2020-08-10 14:29] LABS: MD YES
[2020-08-10 14:31] LABS: BASOS#(MANUAL) 0.04 x10^3/uL (0-0.1); BASOS% (MANUAL) 1 % (0-1); EOS#(MANUAL) 0.17 x10^3/uL (0.0-0.4); EOS% (MANUAL) 4 % (1-7); LYMPHS% (MANUAL) 12 % (22-44); MONOS#(MANUAL) 0.34 x10^3/uL (0.3-2.7); MONOS% (MANUAL) 8 % (2-9); SEG#(MANUAL) 3.15 x10^3/uL (1.8-6.8); SEGS% (MANUAL) 75 % (42-75)
[2020-08-10 14:32] LABS: ANISOCYTOSIS 1+; HYPOCHROMIA 1+
[2020-08-10 15:14] LABS: PLATELET COUNT 76 x10^3/uL (130-400)
[2020-08-10 15:15] LABS: MEAN PLATELET VOLUME 7.5 fL (7.4-10.4)
[2020-08-10 15:16] LABS: <PLATELET ESTIMATE> DECREASED
[2020-08-10 15:17] LABS: <PLT MORPHOLOGY> NORMAL PLT MORPH
[2020-08-10] MEDS: ATORVASTATIN 20 MG TABLET PO SCH (21:04)
[2020-08-10] MEDS: GABAPENTIN 100 MG CAPSULE PO PRN (21:04)
[2020-08-10] MEDS: TEMAZEPAM 15 MG CAPSULE PO PRN (21:06)
[2020-08-11] VITALS (8 sets, daily range): BP systolic 116–135; BP diastolic 74–91
[2020-08-11] MEDS: HYDROcodone/APAP 5/325 TABLET PO PRN ×2 (02:54→08:13)
[2020-08-11] MEDS: CARVEDILOL 25 MG TABLET PO SCH ×2 (05:41→19:59)
[2020-08-11] MEDS: DIPHENOXYLATE/ATROPINE TABLET PO SCH ×3 (05:41→19:59)
[2020-08-11] MEDS: LACTOBACILLUS CHEW TABLET PO SCH ×4 (05:41→19:59)
[2020-08-11] MEDS: LISINOPRIL 10 MG TABLET PO SCH (08:13)
[2020-08-11] MEDS: DARUNAVIR 800 MG TABLET PO SCH (08:13)
[2020-08-11] MEDS: DOLUTEGRAVIR 50MG TAB PO SCH (08:13)
[2020-08-11] MEDS: SULFAMETH./TRIMETHOPRIM DS 800MG/160MG TABLET PO SCH (08:13)
[2020-08-11] MEDS: SEVELAMER CARBONATE 800MG TAB PO SCH ×3 (08:13→19:59)
[2020-08-11] MEDS: RITONAVIR 100 MG TABLET PO SCH (08:13)
[2020-08-11] MEDS: LAMIVUDINE 10 MG/ML PO SCH (08:14)
[2020-08-11] MEDS: SODIUM BICARBONATE 650 MG TABLET PO SCH ×2 (08:14→19:59)
[2020-08-11 16:29] LABS: ALANINE AMINOTRANSFERASE 24 U/L (12-78); ALBUMIN 2.6 g/dL (3.4-5.0); ANION GAP 11 mmol/L (5-15); CALCIUM 7.8 mg/dL (8.5-10.1); CHLORIDE 103 mmol/L (98-107)
[2020-08-11 16:31] LABS: ALKALINE PHOSPHATASE 344 U/L (45-117); BILIRUBIN,TOTAL 0.4 mg/dL (0.2-1.0); TOTAL PROTEIN 7.6 g/dL (6.4-8.2)
[2020-08-11 16:43] LABS: MEAN CORPUSCULAR HEMOGLOBIN 29.8 pg (27.5-34.5); MEAN CORPUSCULAR HGB CONC 32.6 g/dL (33.2-36.2); MEAN PLATELET VOLUME 8.3 fL (7.4-10.4); PLATELET COUNT 68 x10^3/uL (130-400); RED CELL DISTRIBUTION WIDTH 18.5 % (9.4-14.8)
[2020-08-11 17:20] LABS: BASOPHILS % (AUTO) 0 % (0-1); EOSINOPHILS # (AUTO) 0.03 x10^3/uL (0-0.4); EOSINOPHILS % (AUTO) 1 % (1-7); LYMPHOCYTES # (AUTO) 0.46 x10^3/uL (1-3.4); LYMPHOCYTES % (AUTO) 11 % (22-44); MD SCAN; MONOCYTES # (AUTO) 0.41 x10^3/uL (0.2-0.8); MONOCYTES % (AUTO) 10 % (2-9); NEUTROPHILS # (AUTO) 3.38 x10^3/uL (1.8-6.8); NEUTROPHILS % (AUTO) 79 % (42-75)
[2020-08-11] MEDS: ATORVASTATIN 20 MG TABLET PO SCH (19:59)
[2020-08-11] MEDS: SODIUM CHLORIDE 0.9% IVPB SCH (20:22)
[2020-08-11] MEDS: GANCICLOVIR IVPB SCH (20:22)
[2020-08-12] VITALS (8 sets, daily range): BP systolic 118–143; BP diastolic 67–90
[2020-08-12 02:53] LABS: CLOSTRIDIUM DIFFICILE ANTIGEN NEGATIVE; CLOSTRIDIUM DIFFICILE TOXIN NEGATIVE (Negative)
[2020-08-12] MEDS: LACTOBACILLUS CHEW TABLET PO SCH ×4 (05:44→21:13)
[2020-08-12] MEDS: DIPHENOXYLATE/ATROPINE TABLET PO SCH ×3 (05:44→21:13)
[2020-08-12] MEDS: CARVEDILOL 25 MG TABLET PO SCH ×2 (05:44→16:20)
[2020-08-12] MEDS: SODIUM BICARBONATE 650 MG TABLET PO SCH ×2 (09:00→21:00)
[2020-08-12] MEDS: DOLUTEGRAVIR 50MG TAB PO SCH (09:21)
[2020-08-12] MEDS: LAMIVUDINE 10 MG/ML PO SCH (09:21)
[2020-08-12] MEDS: DARUNAVIR 800 MG TABLET PO SCH (09:21)
[2020-08-12] MEDS: RITONAVIR 100 MG TABLET PO SCH (09:21)
[2020-08-12] MEDS: SEVELAMER CARBONATE 800MG TAB PO SCH ×3 (09:22→16:20)
[2020-08-12] MEDS: SULFAMETH./TRIMETHOPRIM DS 800MG/160MG TABLET PO SCH (09:22)
[2020-08-12] MEDS: LISINOPRIL 10 MG TABLET PO SCH (09:22)
[2020-08-12] MEDS: ACETAMINOPHEN 325 MG TABLET PO PRN (09:32)
[2020-08-12 10:56] LABS: CRYPTOSPORIDIUM ANTIGEN Negative (Negative)
[2020-08-12] MEDS: SIMETHICONE 125 MG CHEW TAB PO PRN (16:28)
[2020-08-12] MEDS: ATORVASTATIN 20 MG TABLET PO SCH (21:13)
[2020-08-13 02:00] VITALS: BP 130/79
[2020-08-13] MEDS: LACTOBACILLUS CHEW TABLET PO SCH ×4 (05:25→19:29)
[2020-08-13] MEDS: DIPHENOXYLATE/ATROPINE TABLET PO SCH ×3 (05:26→19:30)
[2020-08-13] MEDS: CARVEDILOL 25 MG TABLET PO SCH ×2 (05:26→17:17)
[2020-08-13] MEDS: SIMETHICONE 125 MG CHEW TAB PO PRN ×2 (05:33→19:29)
[2020-08-13 05:56] LABS: CREATININE 8.91 mg/dL (0.7-1.3)
[2020-08-13 07:17] VITALS: BP 145/84
[2020-08-13] MEDS: SEVELAMER CARBONATE 800MG TAB PO SCH ×3 (08:41→17:17)
[2020-08-13] MEDS: LISINOPRIL 10 MG TABLET PO SCH (08:41)
[2020-08-13] MEDS: SULFAMETH./TRIMETHOPRIM DS 800MG/160MG TABLET PO SCH (08:41)
[2020-08-13] MEDS: LAMIVUDINE 10 MG/ML PO SCH (08:42)
[2020-08-13] MEDS: DOLUTEGRAVIR 50MG TAB PO SCH (08:42)
[2020-08-13] MEDS: SODIUM BICARBONATE 650 MG TABLET PO SCH ×2 (08:42→19:30)
[2020-08-13] MEDS: RITONAVIR 100 MG TABLET PO SCH (08:42)
[2020-08-13] MEDS: DARUNAVIR 800 MG TABLET PO SCH (08:42)
[2020-08-13] MEDS: AZITHROMYCIN 600 MG TABLET PO SCH (08:52)
[2020-08-13 09:38] LABS: BASOPHILS % (AUTO) 1 % (0-1); EOSINOPHILS % (AUTO) 1 % (1-7); LYMPHOCYTES % (AUTO) 11 % (22-44); MEAN CORPUSCULAR HEMOGLOBIN 29.8 pg (27.5-34.5); MEAN CORPUSCULAR HGB CONC 32.8 g/dL (33.2-36.2); MEAN PLATELET VOLUME 9.2 fL (7.4-10.4); MONOCYTES % (AUTO) 10 % (2-9); NEUTROPHILS % (AUTO) 78 % (42-75); PLATELET COUNT 75 x10^3/uL (130-400); RED BLOOD COUNT 2.55 x10^6/uL (4.38-5.82); RED CELL DISTRIBUTION WIDTH 17.6 % (9.4-14.8)
[2020-08-13 09:40] LABS: MD NO
[2020-08-13 11:18] LABS: CREATININE 8.91 mg/dL (0.7-1.3)
[2020-08-13 11:41] LABS: CHLORIDE 100 mmol/L (98-107)
[2020-08-13 11:42] LABS: ALBUMIN 2.7 g/dL (3.4-5.0); ANION GAP 13 mmol/L (5-15); CALCIUM 8.3 mg/dL (8.5-10.1)
[2020-08-13 12:16] VITALS: BP 144/64
[2020-08-13] MEDS: ARANESP 100 MCG/ML **ESRD SQ SCH (12:34)
[2020-08-13] MEDS: GABAPENTIN 100 MG CAPSULE PO PRN (14:53)
[2020-08-13] MEDS: HYDROcodone/APAP 5/325 TABLET PO PRN (14:53)
[2020-08-13 17:13] VITALS: BP_SYST 103; BP_SYST 107; BP_DIAS 70; BP_DIAS 73
[2020-08-13] MEDS: ATORVASTATIN 20 MG TABLET PO SCH (19:30)
[2020-08-13 19:32] VITALS: BP 115/81
[2020-08-13] MEDS ORDERED: ARANESP 100 MCG/ML **ESRD SQ SCH (20:27)
[2020-08-13] MEDS: metroNIDAZOLE 500 MG TABLET PO SCH (20:52)
[2020-08-13] MEDS: TEMAZEPAM 15 MG CAPSULE PO PRN (21:53)
[2020-08-14 01:19] VITALS: BP 108/76
[2020-08-14] MEDS: LACTOBACILLUS CHEW TABLET PO SCH ×4 (04:10→21:24)
[2020-08-14] MEDS: metroNIDAZOLE 500 MG TABLET PO SCH ×3 (04:10→21:24)
[2020-08-14] MEDS: CARVEDILOL 25 MG TABLET PO SCH ×2 (04:10→21:23)
[2020-08-14] MEDS: DIPHENOXYLATE/ATROPINE TABLET PO SCH ×3 (04:10→21:23)
[2020-08-14 07:54] VITALS: BP 144/75
[2020-08-14] MEDS: DOLUTEGRAVIR 50MG TAB PO SCH (07:55)
[2020-08-14] MEDS: DARUNAVIR 800 MG TABLET PO SCH (07:55)
[2020-08-14] MEDS: LAMIVUDINE 10 MG/ML PO SCH (07:55)
[2020-08-14] MEDS: LISINOPRIL 10 MG TABLET PO SCH (07:55)
[2020-08-14] MEDS: RITONAVIR 100 MG TABLET PO SCH (07:55)
[2020-08-14] MEDS: SULFAMETH./TRIMETHOPRIM DS 800MG/160MG TABLET PO SCH (07:55)
[2020-08-14] MEDS: SEVELAMER CARBONATE 800MG TAB PO SCH ×3 (07:55→21:23)
[2020-08-14] MEDS: SODIUM BICARBONATE 650 MG TABLET PO SCH ×2 (07:55→21:00)
[2020-08-14] MEDS: SIMETHICONE 125 MG CHEW TAB PO PRN ×2 (08:03→21:23)
--- NOTE | 2020-08-14 13:21 | NUR ---
Activity sheet posted in patient's room recommending CG assist for ambulation with FWW from nursing staff daily. Addendum: 08/14/20 at 1321 by Bear Solano PT Amended: Links added.
[2020-08-14 14:31] VITALS: BP 110/69
[2020-08-14 18:43] LABS: ANION GAP 12 mmol/L (5-15); CALCIUM 7.5 mg/dL (8.5-10.1); CHLORIDE 97 mmol/L (98-107)
[2020-08-14 19:10] LABS: BASOPHILS % (AUTO) 1 % (0-1); EOSINOPHILS % (AUTO) 0 % (1-7); LYMPHOCYTES % (AUTO) 12 % (22-44); MEAN CORPUSCULAR HEMOGLOBIN 29.6 pg (27.5-34.5); MEAN CORPUSCULAR HGB CONC 32.9 g/dL (33.2-36.2); MONOCYTES % (AUTO) 9 % (2-9); NEUTROPHILS % (AUTO) 78 % (42-75); PLATELET COUNT 83 x10^3/uL (130-400); RED BLOOD COUNT 2.67 x10^6/uL (4.38-5.82); RED CELL DISTRIBUTION WIDTH 17.7 % (9.4-14.8)
[2020-08-14 19:35] VITALS: BP 115/82
[2020-08-14 20:04] LABS: MD SCAN
[2020-08-14] MEDS: ATORVASTATIN 20 MG TABLET PO SCH (21:24)
[2020-08-14] MEDS: GANCICLOVIR IVPB SCH (21:39)
[2020-08-14] MEDS: SODIUM CHLORIDE 0.9% IVPB SCH (21:39)
[2020-08-15] MEDS: GABAPENTIN 100 MG CAPSULE PO PRN ×2 (00:27→22:06)
[2020-08-15] MEDS: HYDROcodone/APAP 5/325 TABLET PO PRN ×2 (00:27→22:06)
[2020-08-15] MEDS: TEMAZEPAM 15 MG CAPSULE PO PRN ×2 (00:28→22:06)
[2020-08-15] MEDS: DIPHENHYDRAMINE 12.5MG/5ML, 10ML UDC PO PRN (02:20)
[2020-08-15] MEDS: CARVEDILOL 25 MG TABLET PO SCH ×2 (05:10→17:44)
[2020-08-15] MEDS: LACTOBACILLUS CHEW TABLET PO SCH ×4 (05:10→22:05)
[2020-08-15] MEDS: metroNIDAZOLE 500 MG TABLET PO SCH ×3 (05:10→22:05)
[2020-08-15] MEDS: DIPHENOXYLATE/ATROPINE TABLET PO SCH ×3 (05:10→22:05)
[2020-08-15 05:57] LABS: ALBUMIN 2.4 g/dL (3.4-5.0); ANION GAP 9 mmol/L (5-15); CALCIUM 7.4 mg/dL (8.5-10.1); CHLORIDE 98 mmol/L (98-107)
[2020-08-15 06:01] LABS: ALANINE AMINOTRANSFERASE 15 U/L (12-78); ALKALINE PHOSPHATASE 319 U/L (45-117); BILIRUBIN,TOTAL 0.4 mg/dL (0.2-1.0); TOTAL PROTEIN 7.4 g/dL (6.4-8.2)
[2020-08-15] MEDS ORDERED: POTASSIUM CHLORIDE 20 MEQ TAB.ER.PRT PO ONE (07:00)
[2020-08-15 08:06] VITALS: BP 123/95
[2020-08-15] MEDS: SODIUM BICARBONATE 650 MG TABLET PO SCH ×2 (08:49→22:07)
[2020-08-15] MEDS: SEVELAMER CARBONATE 800MG TAB PO SCH ×3 (08:49→16:12)
[2020-08-15] MEDS: SULFAMETH./TRIMETHOPRIM DS 800MG/160MG TABLET PO SCH (08:49)
[2020-08-15] MEDS: LISINOPRIL 10 MG TABLET PO SCH (08:49)
[2020-08-15] MEDS: DOLUTEGRAVIR 50MG TAB PO SCH (08:50)
[2020-08-15] MEDS: LAMIVUDINE 10 MG/ML PO SCH (08:50)
[2020-08-15] MEDS: RITONAVIR 100 MG TABLET PO SCH (08:50)
[2020-08-15] MEDS: DARUNAVIR 800 MG TABLET PO SCH (08:50)
[2020-08-15 12:54] VITALS: BP 122/84
[2020-08-15 17:46] VITALS: BP 131/81
[2020-08-15 19:26] VITALS: BP 132/86
[2020-08-15] MEDS: ATORVASTATIN 20 MG TABLET PO SCH (22:06)
[2020-08-15] MEDS: SIMETHICONE 125 MG CHEW TAB PO PRN (22:06)
[2020-08-16 00:17] VITALS: BP 118/67
[2020-08-16 06:34] VITALS: BP 111/69
[2020-08-16] MEDS: CARVEDILOL 25 MG TABLET PO SCH ×2 (06:35→17:49)
[2020-08-16] MEDS: metroNIDAZOLE 500 MG TABLET PO SCH ×3 (06:35→21:40)
[2020-08-16] MEDS: HYDROcodone/APAP 5/325 TABLET PO PRN (06:35)
[2020-08-16] MEDS: LACTOBACILLUS CHEW TABLET PO SCH ×4 (06:35→21:40)
[2020-08-16] MEDS: DIPHENOXYLATE/ATROPINE TABLET PO SCH ×3 (06:35→21:40)
[2020-08-16] MEDS: ONDANSETRON 2MG/ML, 2ML IVPush PRN (07:55)
[2020-08-16 08:40] LABS: BASOPHILS % (AUTO) 1 % (0-1); EOSINOPHILS % (AUTO) 1 % (1-7); LYMPHOCYTES % (AUTO) 10 % (22-44); MEAN CORPUSCULAR HEMOGLOBIN 30.2 pg (27.5-34.5); MEAN PLATELET VOLUME 8.8 fL (7.4-10.4); MONOCYTES % (AUTO) 10 % (2-9); NEUTROPHILS % (AUTO) 78 % (42-75); PLATELET COUNT 88 x10^3/uL (130-400); RED BLOOD COUNT 2.62 x10^6/uL (4.38-5.82)
[2020-08-16 08:47] LABS: MD NO
[2020-08-16 08:50] LABS: ALBUMIN 2.6 g/dL (3.4-5.0); ANION GAP 9 mmol/L (5-15); CHLORIDE 98 mmol/L (98-107)
[2020-08-16 08:52] LABS: CREATININE 9.31 mg/dL (0.7-1.3)
[2020-08-16] MEDS: SULFAMETH./TRIMETHOPRIM DS 800MG/160MG TABLET PO SCH (10:22)
[2020-08-16] MEDS: SODIUM BICARBONATE 650 MG TABLET PO SCH ×2 (10:22→21:00)
[2020-08-16] MEDS: SEVELAMER CARBONATE 800MG TAB PO SCH ×3 (10:22→17:49)
[2020-08-16] MEDS: DARUNAVIR 800 MG TABLET PO SCH (10:22)
[2020-08-16] MEDS: RITONAVIR 100 MG TABLET PO SCH (10:23)
[2020-08-16] MEDS: DOLUTEGRAVIR 50MG TAB PO SCH (10:23)
[2020-08-16 12:05] VITALS: BP 113/69
[2020-08-16 13:00] VITALS: BP 114/73
[2020-08-16] MEDS: LISINOPRIL 10 MG TABLET PO SCH (13:11)
[2020-08-16] MEDS: DIPHENHYDRAMINE 12.5MG/5ML, 10ML UDC PO PRN ×2 (14:08→21:48)
[2020-08-16] MEDS: LAMIVUDINE 10 MG/ML PO SCH (14:09)
[2020-08-16 17:50] VITALS: BP 121/76
[2020-08-16] MEDS: SODIUM CHLORIDE 0.9% IVPB SCH (18:13)
[2020-08-16] MEDS: GANCICLOVIR IVPB SCH (18:13)
[2020-08-16 20:41] VITALS: BP 101/76
[2020-08-16] MEDS: ATORVASTATIN 20 MG TABLET PO SCH (21:37)
[2020-08-16] MEDS: GABAPENTIN 100 MG CAPSULE PO PRN (21:47)
[2020-08-16] MEDS: TEMAZEPAM 15 MG CAPSULE PO PRN (21:47)
[2020-08-16] MEDS: SIMETHICONE 125 MG CHEW TAB PO PRN (21:47)
[2020-08-17 02:00] VITALS: BP 120/80
[2020-08-17] MEDS: HYDROcodone/APAP 5/325 TABLET PO PRN (06:03)
[2020-08-17] MEDS: DIPHENOXYLATE/ATROPINE TABLET PO SCH ×3 (06:04→21:30)
[2020-08-17] MEDS: LACTOBACILLUS CHEW TABLET PO SCH ×4 (06:04→21:28)
[2020-08-17] MEDS: metroNIDAZOLE 500 MG TABLET PO SCH ×3 (06:04→21:28)
[2020-08-17] MEDS: CARVEDILOL 25 MG TABLET PO SCH ×2 (06:05→17:12)
[2020-08-17 06:07] VITALS: BP 122/76
[2020-08-17 07:22] VITALS: BP 113/69
[2020-08-17] MEDS: SEVELAMER CARBONATE 800MG TAB PO SCH ×3 (08:56→17:12)
[2020-08-17] MEDS: SODIUM BICARBONATE 650 MG TABLET PO SCH ×2 (08:56→21:00)
[2020-08-17] MEDS: DARUNAVIR 800 MG TABLET PO SCH (08:56)
[2020-08-17] MEDS: LAMIVUDINE 10 MG/ML PO SCH (08:56)
[2020-08-17] MEDS: LISINOPRIL 10 MG TABLET PO SCH (08:57)
[2020-08-17] MEDS: RITONAVIR 100 MG TABLET PO SCH (08:57)
[2020-08-17] MEDS: SULFAMETH./TRIMETHOPRIM DS 800MG/160MG TABLET PO SCH (08:57)
[2020-08-17] MEDS: DOLUTEGRAVIR 50MG TAB PO SCH (08:57)
[2020-08-17 13:00] VITALS: BP 115/78
[2020-08-17 14:02] LABS: BASOPHILS % (AUTO) 1 % (0-1); EOSINOPHILS % (AUTO) 1 % (1-7); LYMPHOCYTES % (AUTO) 14 % (22-44); MEAN CORPUSCULAR HEMOGLOBIN 29.7 pg (27.5-34.5); MEAN CORPUSCULAR HGB CONC 32.2 g/dL (33.2-36.2); MEAN PLATELET VOLUME 8.6 fL (7.4-10.4); MONOCYTES % (AUTO) 10 % (2-9); NEUTROPHILS % (AUTO) 75 % (42-75); PLATELET COUNT 101 x10^3/uL (130-400); RED BLOOD COUNT 2.72 x10^6/uL (4.38-5.82); RED CELL DISTRIBUTION WIDTH 17.7 % (9.4-14.8)
[2020-08-17 14:10] LABS: ANION GAP 9 mmol/L (5-15); CALCIUM 7.9 mg/dL (8.5-10.1); CHLORIDE 94 mmol/L (98-107)
[2020-08-17 14:11] LABS: CREATININE 7.75 mg/dL (0.7-1.3)
[2020-08-17 14:33] LABS: MD MORPH REVIEW ONLY
[2020-08-17 14:34] LABS: ANISOCYTOSIS 1+
[2020-08-17 14:35] LABS: OVALOCYTES 1+; TARGET CELLS 1+
[2020-08-17 14:36] LABS: HYPOCHROMIA 1+
[2020-08-17 14:37] LABS: <PLATELET ESTIMATE> DECREASED; <PLT MORPHOLOGY> NORMAL PLT MORPH; SCHISTOCYTES 1+
[2020-08-17 17:11] VITALS: BP 141/81
[2020-08-17] MEDS: ATORVASTATIN 20 MG TABLET PO SCH (21:28)
[2020-08-17] MEDS: SIMETHICONE 125 MG CHEW TAB PO PRN (21:30)
[2020-08-17] MEDS: TEMAZEPAM 15 MG CAPSULE PO PRN (21:30)
[2020-08-17] MEDS: GABAPENTIN 100 MG CAPSULE PO PRN (21:30)
[2020-08-17 21:34] VITALS: BP 143/86
[2020-08-18 03:00] VITALS: BP 132/79
[2020-08-18 06:02] VITALS: BP 138/74
[2020-08-18] MEDS: CARVEDILOL 25 MG TABLET PO SCH ×2 (06:03→17:24)
[2020-08-18] MEDS: LACTOBACILLUS CHEW TABLET PO SCH ×4 (06:03→22:06)
[2020-08-18] MEDS: metroNIDAZOLE 500 MG TABLET PO SCH ×3 (06:03→22:06)
[2020-08-18] MEDS: DIPHENOXYLATE/ATROPINE TABLET PO SCH ×3 (06:04→22:06)
[2020-08-18] MEDS: HYDROcodone/APAP 5/325 TABLET PO PRN ×2 (06:04→22:07)
[2020-08-18] MEDS: SEVELAMER CARBONATE 800MG TAB PO SCH ×3 (08:00→17:24)
[2020-08-18 10:39] LABS: ALBUMIN 2.7 g/dL (3.4-5.0); ANION GAP 6 mmol/L (5-15); CHLORIDE 98 mmol/L (98-107); CREATININE 6.46 mg/dL (0.7-1.3)
[2020-08-18] MEDS ORDERED: POTASSIUM CHLORIDE 20 MEQ TAB.ER.PRT PO ONE (12:00)
[2020-08-18 12:32] VITALS: BP 121/78
[2020-08-18] MEDS: SODIUM BICARBONATE 650 MG TABLET PO SCH ×2 (13:13→21:00)
[2020-08-18] MEDS: RITONAVIR 100 MG TABLET PO SCH (13:14)
[2020-08-18] MEDS: LISINOPRIL 10 MG TABLET PO SCH (13:14)
[2020-08-18] MEDS: SULFAMETH./TRIMETHOPRIM DS 800MG/160MG TABLET PO SCH (13:14)
[2020-08-18] MEDS: DARUNAVIR 800 MG TABLET PO SCH (13:14)
[2020-08-18] MEDS: LAMIVUDINE 10 MG/ML PO SCH (13:15)
[2020-08-18] MEDS: SIMETHICONE 125 MG CHEW TAB PO PRN ×2 (13:18→22:14)
[2020-08-18] MEDS: DOLUTEGRAVIR 50MG TAB PO SCH (13:21)
[2020-08-18] MEDS: GANCICLOVIR IVPB SCH (17:24)
[2020-08-18] MEDS: SODIUM CHLORIDE 0.9% IVPB SCH (17:24)
[2020-08-18 19:56] VITALS: BP 117/73
[2020-08-18] MEDS: GABAPENTIN 100 MG CAPSULE PO PRN (22:06)
[2020-08-18] MEDS: TEMAZEPAM 15 MG CAPSULE PO PRN (22:07)
[2020-08-18] MEDS: ATORVASTATIN 20 MG TABLET PO SCH (22:07)
[2020-08-19 02:00] VITALS: BP 112/67
[2020-08-19] MEDS: LACTOBACILLUS CHEW TABLET PO SCH ×4 (05:27→22:00)
[2020-08-19] MEDS: metroNIDAZOLE 500 MG TABLET PO SCH ×3 (05:27→22:00)
[2020-08-19] MEDS: SIMETHICONE 125 MG CHEW TAB PO PRN ×3 (05:27→22:00)
[2020-08-19] MEDS: DIPHENOXYLATE/ATROPINE TABLET PO SCH ×3 (05:27→22:00)
[2020-08-19] MEDS: CARVEDILOL 25 MG TABLET PO SCH ×2 (05:27→17:28)
[2020-08-19 05:28] VITALS: BP 119/74
[2020-08-19] MEDS: SEVELAMER CARBONATE 800MG TAB PO SCH ×3 (08:27→17:28)
[2020-08-19] MEDS: LISINOPRIL 10 MG TABLET PO SCH (08:28)
[2020-08-19] MEDS: SULFAMETH./TRIMETHOPRIM DS 800MG/160MG TABLET PO SCH (08:28)
[2020-08-19] MEDS: SODIUM BICARBONATE 650 MG TABLET PO SCH ×2 (08:28→21:00)
[2020-08-19] MEDS: LAMIVUDINE 10 MG/ML PO SCH (08:29)
[2020-08-19 08:30] VITALS: BP 114/73
[2020-08-19] MEDS: RITONAVIR 100 MG TABLET PO SCH (09:22)
[2020-08-19] MEDS: DOLUTEGRAVIR 50MG TAB PO SCH (09:22)
[2020-08-19] MEDS: DARUNAVIR 800 MG TABLET PO SCH (09:22)
[2020-08-19 11:23] VITALS: BP 126/70
[2020-08-19 12:12] VITALS: BP 101/69
[2020-08-19 13:56] LABS: ANION GAP 7 mmol/L (5-15); CALCIUM 8.1 mg/dL (8.5-10.1); CHLORIDE 95 mmol/L (98-107)
[2020-08-19 14:09] LABS: BASOPHILS % (AUTO) 1 % (0-1); EOSINOPHILS % (AUTO) 1 % (1-7); LYMPHOCYTES % (AUTO) 12 % (22-44); MEAN CORPUSCULAR HEMOGLOBIN 29.4 pg (27.5-34.5); MEAN PLATELET VOLUME 8.5 fL (7.4-10.4); MONOCYTES % (AUTO) 8 % (2-9); NEUTROPHILS % (AUTO) 79 % (42-75); PLATELET COUNT 123 x10^3/uL (130-400); RED BLOOD COUNT 2.71 x10^6/uL (4.38-5.82); RED CELL DISTRIBUTION WIDTH 17.5 % (9.4-14.8)
[2020-08-19 14:13] LABS: MD NO
[2020-08-19 19:42] VITALS: BP 131/76
[2020-08-19] MEDS: HYDROcodone/APAP 5/325 TABLET PO PRN (21:59)
[2020-08-19] MEDS: GABAPENTIN 100 MG CAPSULE PO PRN (22:00)
[2020-08-19] MEDS: TEMAZEPAM 15 MG CAPSULE PO PRN (22:00)
[2020-08-19] MEDS: ATORVASTATIN 20 MG TABLET PO SCH (22:00)
[2020-08-20 01:36] VITALS: BP 125/72
[2020-08-20 08:30] VITALS: BP 133/84
[2020-08-20] MEDS: SEVELAMER CARBONATE 800MG TAB PO SCH ×3 (08:37→16:09)
[2020-08-20] MEDS: LACTOBACILLUS CHEW TABLET PO SCH ×4 (08:38→20:54)
[2020-08-20] MEDS: AZITHROMYCIN 600 MG TABLET PO SCH (08:38)
[2020-08-20] MEDS: DIPHENOXYLATE/ATROPINE TABLET PO SCH ×3 (08:38→20:55)
[2020-08-20] MEDS: SULFAMETH./TRIMETHOPRIM DS 800MG/160MG TABLET PO SCH (08:38)
[2020-08-20] MEDS: CARVEDILOL 25 MG TABLET PO SCH ×2 (08:39→17:24)
[2020-08-20] MEDS: LISINOPRIL 10 MG TABLET PO SCH (08:40)
[2020-08-20] MEDS: SODIUM BICARBONATE 650 MG TABLET PO SCH ×2 (08:40→20:53)
[2020-08-20] MEDS: metroNIDAZOLE 500 MG TABLET PO SCH ×3 (09:05→20:55)
[2020-08-20] MEDS: DARUNAVIR 800 MG TABLET PO SCH (09:05)
[2020-08-20] MEDS: LAMIVUDINE 10 MG/ML PO SCH (09:05)
[2020-08-20] MEDS: DOLUTEGRAVIR 50MG TAB PO SCH (09:05)
[2020-08-20] MEDS: RITONAVIR 100 MG TABLET PO SCH (09:05)
[2020-08-20 14:01] VITALS: BP 104/61
[2020-08-20 19:10] VITALS: BP 115/66
[2020-08-20] MEDS ORDERED: ARANESP 100 MCG/ML **ESRD SQ SCH ×2 (20:30)
[2020-08-20] MEDS: ATORVASTATIN 20 MG TABLET PO SCH (20:53)
[2020-08-20] MEDS: SIMETHICONE 125 MG CHEW TAB PO PRN (20:54)
[2020-08-20] MEDS: GABAPENTIN 100 MG CAPSULE PO PRN (20:54)
[2020-08-20] MEDS: HYDROcodone/APAP 5/325 TABLET PO PRN (20:54)
[2020-08-20] MEDS: TEMAZEPAM 15 MG CAPSULE PO PRN (20:55)
[2020-08-20] MEDS ORDERED: ARANESP 200 MCG/ML **ESRD SQ SCH (21:00)
[2020-08-21 02:08] VITALS: BP 121/72
[2020-08-21 06:12] VITALS: BP 120/77
[2020-08-21] MEDS: LACTOBACILLUS CHEW TABLET PO SCH ×4 (06:14→21:30)
[2020-08-21] MEDS: DIPHENOXYLATE/ATROPINE TABLET PO SCH ×3 (06:15→21:30)
[2020-08-21] MEDS: CARVEDILOL 25 MG TABLET PO SCH ×2 (06:15→18:00)
[2020-08-21] MEDS: metroNIDAZOLE 500 MG TABLET PO SCH ×3 (06:15→21:30)
[2020-08-21] MEDS: SIMETHICONE 125 MG CHEW TAB PO PRN ×2 (06:15→21:42)
[2020-08-21] MEDS: SEVELAMER CARBONATE 800MG TAB PO SCH ×3 (08:23→18:30)
[2020-08-21] MEDS: LAMIVUDINE 10 MG/ML PO SCH (08:23)
[2020-08-21] MEDS: RITONAVIR 100 MG TABLET PO SCH (08:23)
[2020-08-21] MEDS: SULFAMETH./TRIMETHOPRIM DS 800MG/160MG TABLET PO SCH (08:23)
[2020-08-21] MEDS: DOLUTEGRAVIR 50MG TAB PO SCH (08:23)
[2020-08-21] MEDS: DARUNAVIR 800 MG TABLET PO SCH (08:23)
[2020-08-21] MEDS: LISINOPRIL 10 MG TABLET PO SCH (08:24)
[2020-08-21] MEDS: SODIUM BICARBONATE 650 MG TABLET PO SCH (08:25)
[2020-08-21 13:17] VITALS: BP 117/74
[2020-08-21 19:36] VITALS: BP 102/59
[2020-08-21 21:02] LABS: BASOPHILS % (AUTO) 2 % (0-1); EOSINOPHILS % (AUTO) 1 % (1-7); LYMPHOCYTES % (AUTO) 15 % (22-44); MEAN CORPUSCULAR HEMOGLOBIN 29.6 pg (27.5-34.5); MEAN CORPUSCULAR HGB CONC 31.7 g/dL (33.2-36.2); MEAN PLATELET VOLUME 8.6 fL (7.4-10.4); MONOCYTES % (AUTO) 9 % (2-9); NEUTROPHILS % (AUTO) 73 % (42-75); PLATELET COUNT 110 x10^3/uL (130-400); RED BLOOD COUNT 2.63 x10^6/uL (4.38-5.82)
[2020-08-21 21:04] LABS: MD NO
[2020-08-21 21:14] LABS: ALANINE AMINOTRANSFERASE 11 U/L (12-78); ALBUMIN 2.7 g/dL (3.4-5.0); ANION GAP 10 mmol/L (5-15); CALCIUM 8.4 mg/dL (8.5-10.1); CHLORIDE 97 mmol/L (98-107)
[2020-08-21 21:21] LABS: ALKALINE PHOSPHATASE 276 U/L (45-117); BILIRUBIN,TOTAL 0.4 mg/dL (0.2-1.0)
[2020-08-21] MEDS: ATORVASTATIN 20 MG TABLET PO SCH (21:30)
[2020-08-21] MEDS: HYDROcodone/APAP 5/325 TABLET PO PRN (21:42)
[2020-08-21] MEDS: TEMAZEPAM 15 MG CAPSULE PO PRN (21:42)
[2020-08-21] MEDS: GABAPENTIN 100 MG CAPSULE PO PRN (21:42)
[2020-08-21 21:48] LABS: HCT (SEDRATE) 24.5 % (39.2-51.8)
[2020-08-22 01:15] VITALS: BP 115/73
[2020-08-22 05:24] VITALS: BP 138/80
[2020-08-22] MEDS: CARVEDILOL 25 MG TABLET PO SCH ×2 (05:26→18:00)
[2020-08-22] MEDS: LACTOBACILLUS CHEW TABLET PO SCH ×4 (05:26→21:48)
[2020-08-22] MEDS: metroNIDAZOLE 500 MG TABLET PO SCH ×3 (05:27→21:48)
[2020-08-22] MEDS: DIPHENOXYLATE/ATROPINE TABLET PO SCH ×3 (05:27→21:48)
[2020-08-22] MEDS ORDERED: VALGANCICLOVIR 450MG TABLET PO SCH (09:00)
[2020-08-22] MEDS: DOLUTEGRAVIR 50MG TAB PO SCH (09:06)
[2020-08-22] MEDS: RITONAVIR 100 MG TABLET PO SCH (09:06)
[2020-08-22] MEDS: DARUNAVIR 800 MG TABLET PO SCH (09:07)
[2020-08-22] MEDS: SEVELAMER CARBONATE 800MG TAB PO SCH ×3 (09:07→18:00)
[2020-08-22] MEDS: SULFAMETH./TRIMETHOPRIM DS 800MG/160MG TABLET PO SCH (09:08)
[2020-08-22] MEDS: LAMIVUDINE 10 MG/ML PO SCH (09:08)
[2020-08-22 12:15] LABS: MEAN CORPUSCULAR HEMOGLOBIN 29.8 pg (27.5-34.5); MEAN CORPUSCULAR HGB CONC 32.5 g/dL (33.2-36.2); MEAN PLATELET VOLUME 8.5 fL (7.4-10.4); PLATELET COUNT 104 x10^3/uL (130-400); RED BLOOD COUNT 2.48 x10^6/uL (4.38-5.82); RED CELL DISTRIBUTION WIDTH 17.4 % (9.4-14.8)
[2020-08-22 12:32] LABS: ANION GAP 7 mmol/L (5-15); CALCIUM 8.2 mg/dL (8.5-10.1); CHLORIDE 98 mmol/L (98-107); CREATININE 5.92 mg/dL (0.7-1.3)
[2020-08-22 12:45] LABS: MD YES
[2020-08-22 12:50] LABS: ANISOCYTOSIS 1+; BAND#(MANUAL) 0.03 x10^3/uL; BANDS%(MANUAL) 1 % (0-7); BASOS#(MANUAL) 0.06 x10^3/uL (0-0.1); BASOS% (MANUAL) 2 % (0-1); EOS#(MANUAL) 0.03 x10^3/uL (0.0-0.4); EOS% (MANUAL) 1 % (1-7); LYMPH#(MANUAL) 0.52 x10^3/uL (1-3.4); LYMPHS% (MANUAL) 18 % (22-44); MONOS#(MANUAL) 0.29 x10^3/uL (0.3-2.7); MONOS% (MANUAL) 10 % (2-9); OVALOCYTES 1+; POLYCHROMASIA 1+; SEG#(MANUAL) 1.97 x10^3/uL (1.8-6.8); SEGS% (MANUAL) 68 % (42-75)
[2020-08-22 12:51] LABS: <PLATELET ESTIMATE> DECREASED; <PLT MORPHOLOGY> NORMAL PLT MORPH; TEAR DROPS 1+
[2020-08-22] MEDS: LISINOPRIL 10 MG TABLET PO SCH (13:33)
[2020-08-22 14:24] VITALS: BP 113/61
[2020-08-22 19:50] VITALS: BP 128/57
[2020-08-22] MEDS: SIMETHICONE 125 MG CHEW TAB PO PRN (21:47)
[2020-08-22] MEDS: ATORVASTATIN 20 MG TABLET PO SCH (21:48)
[2020-08-22] MEDS: TEMAZEPAM 15 MG CAPSULE PO PRN (21:48)
[2020-08-22] MEDS: GABAPENTIN 100 MG CAPSULE PO PRN (21:48)
[2020-08-22] MEDS: HYDROcodone/APAP 5/325 TABLET PO PRN (21:49)
[2020-08-23 02:00] VITALS: BP 122/54
[2020-08-23] MEDS: LACTOBACILLUS CHEW TABLET PO SCH ×4 (05:51→21:24)
[2020-08-23] MEDS: CARVEDILOL 25 MG TABLET PO SCH ×2 (05:53→17:23)
[2020-08-23] MEDS: metroNIDAZOLE 500 MG TABLET PO SCH ×2 (05:54→21:25)
[2020-08-23 05:55] VITALS: BP 135/84
[2020-08-23] MEDS: DIPHENOXYLATE/ATROPINE TABLET PO SCH ×2 (06:20→21:25)
[2020-08-23 07:28] VITALS: BP 136/97
[2020-08-23] MEDS: LISINOPRIL 10 MG TABLET PO SCH (09:14)
[2020-08-23] MEDS: SULFAMETH./TRIMETHOPRIM DS 800MG/160MG TABLET PO SCH (09:14)
[2020-08-23] MEDS: SEVELAMER CARBONATE 800MG TAB PO SCH ×3 (09:14→17:23)
[2020-08-23] MEDS: DOLUTEGRAVIR 50MG TAB PO SCH (09:15)
[2020-08-23] MEDS: DARUNAVIR 800 MG TABLET PO SCH (09:15)
[2020-08-23] MEDS: LAMIVUDINE 10 MG/ML PO SCH (09:15)
[2020-08-23] MEDS: RITONAVIR 100 MG TABLET PO SCH (09:15)
[2020-08-23] MEDS: SIMETHICONE 125 MG CHEW TAB PO PRN ×2 (11:35→21:34)
[2020-08-23 14:50] VITALS: BP 132/86
[2020-08-23 17:04] LABS: BASOPHILS % (AUTO) 1 % (0-1); EOSINOPHILS % (AUTO) 1 % (1-7); LYMPHOCYTES % (AUTO) 12 % (22-44); MEAN CORPUSCULAR HEMOGLOBIN 29.8 pg (27.5-34.5); MEAN CORPUSCULAR HGB CONC 32.4 g/dL (33.2-36.2); MEAN PLATELET VOLUME 8.4 fL (7.4-10.4); MONOCYTES % (AUTO) 13 % (2-9); NEUTROPHILS % (AUTO) 74 % (42-75); PLATELET COUNT 103 x10^3/uL (130-400); RED BLOOD COUNT 2.62 x10^6/uL (4.38-5.82)
[2020-08-23 17:14] LABS: ALANINE AMINOTRANSFERASE 10 U/L (12-78); ALBUMIN 2.7 g/dL (3.4-5.0); ANION GAP 7 mmol/L (5-15); CALCIUM 8.5 mg/dL (8.5-10.1); CHLORIDE 101 mmol/L (98-107); CREATININE 9.32 mg/dL (0.7-1.3)
[2020-08-23 17:15] LABS: MD NO
[2020-08-23 17:17] LABS: ALKALINE PHOSPHATASE 275 U/L (45-117); BILIRUBIN,TOTAL 0.4 mg/dL (0.2-1.0); TOTAL PROTEIN 7.9 g/dL (6.4-8.2)
[2020-08-23] MEDS ORDERED: ARANESP 200 MCG/ML **ESRD SQ SCH ×2 (17:54→18:09)
[2020-08-23] MEDS ORDERED: RITONAVIR 100 MG TABLET PO ONE (18:30)
[2020-08-23] MEDS ORDERED: DOLUTEGRAVIR 50MG TAB PO ONE (18:30)
[2020-08-23] MEDS ORDERED: SULFAMETH./TRIMETHOPRIM DS 800MG/160MG TABLET PO ONE (18:30)
[2020-08-23] MEDS ORDERED: DARUNAVIR 800 MG TABLET PO ONE (18:30)
[2020-08-23 21:05] VITALS: BP 115/71
[2020-08-23] MEDS: TEMAZEPAM 15 MG CAPSULE PO PRN (21:24)
[2020-08-23] MEDS: ATORVASTATIN 20 MG TABLET PO SCH (21:24)
[2020-08-23] MEDS: HYDROcodone/APAP 5/325 TABLET PO PRN (21:24)
[2020-08-23] MEDS: GABAPENTIN 100 MG CAPSULE PO PRN (21:25)
[2020-08-24 01:05] VITALS: BP 115/74
[2020-08-24 05:58] VITALS: BP 117/71
[2020-08-24] MEDS: DIPHENOXYLATE/ATROPINE TABLET PO SCH ×3 (06:03→21:14)
[2020-08-24] MEDS: metroNIDAZOLE 500 MG TABLET PO SCH ×3 (06:03→21:15)
[2020-08-24] MEDS: LACTOBACILLUS CHEW TABLET PO SCH ×4 (06:04→21:14)
[2020-08-24] MEDS: CARVEDILOL 25 MG TABLET PO SCH ×2 (06:04→17:01)
[2020-08-24 07:34] VITALS: BP 119/72
[2020-08-24] MEDS: LAMIVUDINE 10 MG/ML PO SCH (08:07)
[2020-08-24] MEDS: DARUNAVIR 800 MG TABLET PO SCH (08:08)
[2020-08-24] MEDS: RITONAVIR 100 MG TABLET PO SCH (08:08)
[2020-08-24] MEDS: SULFAMETH./TRIMETHOPRIM DS 800MG/160MG TABLET PO SCH (08:08)
[2020-08-24] MEDS: DOLUTEGRAVIR 50MG TAB PO SCH (08:08)
[2020-08-24] MEDS: LISINOPRIL 10 MG TABLET PO SCH (08:09)
[2020-08-24] MEDS: SEVELAMER CARBONATE 800MG TAB PO SCH ×3 (08:09→17:01)
[2020-08-24] MEDS: SIMETHICONE 125 MG CHEW TAB PO PRN ×2 (09:00→21:15)
[2020-08-24 13:18] VITALS: BP 127/80
[2020-08-24 19:57] VITALS: BP 126/67
[2020-08-24] MEDS: ATORVASTATIN 20 MG TABLET PO SCH (21:14)
[2020-08-24] MEDS: GABAPENTIN 100 MG CAPSULE PO PRN (21:14)
[2020-08-24] MEDS: TEMAZEPAM 15 MG CAPSULE PO PRN (21:14)
[2020-08-24] MEDS: HYDROcodone/APAP 5/325 TABLET PO PRN (21:23)
[2020-08-25 01:00] VITALS: BP 132/86
[2020-08-25] MEDS: metroNIDAZOLE 500 MG TABLET PO SCH ×3 (05:19→20:50)
[2020-08-25] MEDS: DIPHENOXYLATE/ATROPINE TABLET PO SCH ×3 (05:19→20:50)
[2020-08-25] MEDS: LACTOBACILLUS CHEW TABLET PO SCH ×4 (05:19→20:50)
[2020-08-25] MEDS: CARVEDILOL 25 MG TABLET PO SCH ×2 (05:19→17:25)
[2020-08-25 07:23] VITALS: BP 110/91
[2020-08-25] MEDS: LAMIVUDINE 10 MG/ML PO SCH (09:11)
[2020-08-25] MEDS: DARUNAVIR 800 MG TABLET PO SCH (09:12)
[2020-08-25] MEDS: LISINOPRIL 10 MG TABLET PO SCH (09:12)
[2020-08-25] MEDS: SULFAMETH./TRIMETHOPRIM DS 800MG/160MG TABLET PO SCH (09:12)
[2020-08-25] MEDS: SEVELAMER CARBONATE 800MG TAB PO SCH ×3 (09:12→17:25)
[2020-08-25] MEDS: RITONAVIR 100 MG TABLET PO SCH (09:13)
[2020-08-25] MEDS: DOLUTEGRAVIR 50MG TAB PO SCH (09:13)
[2020-08-25] MEDS: SIMETHICONE 125 MG CHEW TAB PO PRN ×2 (10:34→20:53)
[2020-08-25 12:18] VITALS: BP 100/70
[2020-08-25 19:32] VITALS: BP 123/77
[2020-08-25] MEDS: ATORVASTATIN 20 MG TABLET PO SCH (20:50)
[2020-08-25 21:07] LABS: ALBUMIN 2.8 g/dL (3.4-5.0); ANION GAP 9 mmol/L (5-15); CALCIUM 8.7 mg/dL (8.5-10.1); CHLORIDE 99 mmol/L (98-107)
[2020-08-26 01:04] VITALS: BP 109/73
[2020-08-26 05:02] VITALS: BP 133/85
[2020-08-26] MEDS: CARVEDILOL 25 MG TABLET PO SCH ×2 (05:03→17:30)
[2020-08-26] MEDS: DIPHENOXYLATE/ATROPINE TABLET PO SCH ×3 (05:03→20:53)
[2020-08-26] MEDS: LACTOBACILLUS CHEW TABLET PO SCH ×4 (05:03→20:53)
[2020-08-26] MEDS: metroNIDAZOLE 500 MG TABLET PO SCH ×3 (05:03→20:53)
[2020-08-26 08:00] VITALS: BP 116/74
[2020-08-26] MEDS: SEVELAMER CARBONATE 800MG TAB PO SCH ×3 (08:14→17:00)
[2020-08-26] MEDS: LISINOPRIL 10 MG TABLET PO SCH (09:00)
[2020-08-26 12:39] VITALS: BP 129/85
[2020-08-26] MEDS: LAMIVUDINE 10 MG/ML PO SCH (17:29)
[2020-08-26] MEDS: DOLUTEGRAVIR 50MG TAB PO SCH (17:30)
[2020-08-26] MEDS: SULFAMETH./TRIMETHOPRIM DS 800MG/160MG TABLET PO SCH (17:30)
[2020-08-26] MEDS: DARUNAVIR 800 MG TABLET PO SCH (17:30)
[2020-08-26] MEDS: RITONAVIR 100 MG TABLET PO SCH (17:31)
[2020-08-26 19:20] VITALS: BP 124/66
[2020-08-26] MEDS: SIMETHICONE 125 MG CHEW TAB PO PRN (20:52)
[2020-08-26] MEDS: TEMAZEPAM 15 MG CAPSULE PO PRN (20:52)
[2020-08-26] MEDS: ATORVASTATIN 20 MG TABLET PO SCH (20:53)
[2020-08-26] MEDS: GABAPENTIN 100 MG CAPSULE PO PRN (20:55)
[2020-08-26] MEDS: HYDROcodone/APAP 5/325 TABLET PO PRN (21:12)
[2020-08-27 01:30] VITALS: BP 122/77
[2020-08-27] MEDS: CARVEDILOL 25 MG TABLET PO SCH (05:04)
[2020-08-27] MEDS: DIPHENOXYLATE/ATROPINE TABLET PO SCH ×2 (05:04→11:29)
[2020-08-27] MEDS: LACTOBACILLUS CHEW TABLET PO SCH ×2 (05:04→11:29)
[2020-08-27] MEDS: metroNIDAZOLE 500 MG TABLET PO SCH ×2 (05:04→11:29)
[2020-08-27 05:09] VITALS: BP 145/87
[2020-08-27 07:36] VITALS: BP 126/75
[2020-08-27] MEDS: DOLUTEGRAVIR 50MG TAB PO SCH (08:20)
[2020-08-27] MEDS: DARUNAVIR 800 MG TABLET PO SCH (08:20)
[2020-08-27] MEDS: LAMIVUDINE 10 MG/ML PO SCH (08:20)
[2020-08-27] MEDS: RITONAVIR 100 MG TABLET PO SCH (08:20)
[2020-08-27] MEDS: AZITHROMYCIN 600 MG TABLET PO SCH (08:20)
[2020-08-27] MEDS: SULFAMETH./TRIMETHOPRIM DS 800MG/160MG TABLET PO SCH (08:20)
[2020-08-27] MEDS: LISINOPRIL 10 MG TABLET PO SCH (08:21)
[2020-08-27] MEDS: SEVELAMER CARBONATE 800MG TAB PO SCH (08:21)
[2020-08-27] MEDS: SIMETHICONE 125 MG CHEW TAB PO PRN ×2 (08:29→11:41)
[2020-08-27] MEDS ORDERED: LISI-167 PO (11:01)
[2020-08-27] MEDS ORDERED: ACID1TAB7 PO (11:01)
[2020-08-27] MEDS ORDERED: HYDR-3237 PO (11:01)
[2020-08-27] MEDS ORDERED: SEVE800T8 PO (11:01)
[2020-08-27] MEDS ORDERED: AZIT600T4 PO (11:01)
[2020-08-27] MEDS ORDERED: RITO100T PO (11:01)
[2020-08-27] MEDS ORDERED: GABA-826 PO (11:01)
[2020-08-27] MEDS ORDERED: LAMI10SO PO (11:01)
[2020-08-27] MEDS ORDERED: Sulfameth./Trimethoprim Ds PO (11:01)
[2020-08-27] MEDS ORDERED: SIME125T PO (11:01)
[2020-08-27] MEDS ORDERED: CARV25TA12 PO (11:01)
[2020-08-27] MEDS ORDERED: DOLU50TA PO (11:01)
[2020-08-27 11:20] VITALS: BP 127/69
[2020-08-27 12:39] VITALS: BP 124/76
== END 2020-08-27 14:05 | disposition home or self-care (01) | DRG 241 ==
LOC: ED 14:07 → EDIP 16:10 → 4WST 17:34
PROVIDERS: ADMIT Internal Medicine Infectious Disease; ATTEND Family Medicine
PROC: 0W993ZZ Drainage of Right Pleural Cavity, Percutaneous Approach (ICD-10-PCS; principal; 2020-07-09)
PROC: BB4BZZZ Ultrasonography of Pleura (ICD-10-PCS; 2020-07-09)
PROC: 02H633Z Insertion of Infusion Device into Right Atrium, Percutaneous Approach (ICD-10-PCS; 2020-07-09)
PROC: B5181ZA Fluoroscopy of Superior Vena Cava using Low Osmolar Contrast, Guidance (ICD-10-PCS; 2020-07-09)
PROC: B543ZZA Ultrasonography of Right Jugular Veins, Guidance (ICD-10-PCS; 2020-07-09)
PROC: 0JH63XZ Insertion of Tunneled Vascular Access Device into Chest Subcutaneous Tissue and Fascia, Percutaneous Approach (ICD-10-PCS; 2020-07-14)
PROC: 02HV33Z Insertion of Infusion Device into Superior Vena Cava, Percutaneous Approach (ICD-10-PCS; 2020-07-14)
PROC: B5181ZA Fluoroscopy of Superior Vena Cava using Low Osmolar Contrast, Guidance (ICD-10-PCS; 2020-07-14)
PROC: B548ZZA Ultrasonography of Superior Vena Cava, Guidance (ICD-10-PCS; 2020-07-14)
PROC: 0DBE8ZX Excision of Large Intestine, Via Natural or Artificial Opening Endoscopic, Diagnostic (ICD-10-PCS; 2020-07-24)
PROC: 0DB98ZX Excision of Duodenum, Via Natural or Artificial Opening Endoscopic, Diagnostic (ICD-10-PCS; 2020-07-28)
PROC: 0DB68ZX Excision of Stomach, Via Natural or Artificial Opening Endoscopic, Diagnostic (ICD-10-PCS; 2020-07-28)
PROC: 30233N1 Transfusion of Nonautologous Red Blood Cells into Peripheral Vein, Percutaneous Approach (ICD-10-PCS; 2020-07-30)
DX: K29.01 Acute gastritis with bleeding (principal); I13.2 Hypertensive heart and chronic kidney disease with heart failure and with stage 5 chronic kidney disease, or end stage renal disease; T82.510A Breakdown (mechanical) of surgically created arteriovenous fistula, initial encounter; A04.72 Enterocolitis due to Clostridium difficile, not specified as recurrent; A07.1 Giardiasis [lambliasis]; A07.2 Cryptosporidiosis; K29.81 Duodenitis with bleeding; K64.8 Other hemorrhoids; A08.39 Other viral enteritis; B20 Human immunodeficiency virus [HIV] disease; B25.8 Other cytomegaloviral diseases; B37.0 Candidal stomatitis; D63.1 Anemia in chronic kidney disease; D68.69 Other thrombophilia; D69.6 Thrombocytopenia, unspecified; E83.39 Other disorders of phosphorus metabolism; E87.1 Hypo-osmolality and hyponatremia; E87.2 Acidosis; E88.09 Other disorders of plasma-protein metabolism, not elsewhere classified; F14.90 Cocaine use, unspecified, uncomplicated; F17.200 Nicotine dependence, unspecified, uncomplicated; G89.29 Other chronic pain; I42.9 Cardiomyopathy, unspecified; I50.23 Acute on chronic systolic (congestive) heart failure; N18.6 End stage renal disease; R18.8 Other ascites; R62.7 Adult failure to thrive; Z53.20 Procedure and treatment not carried out because of patient's decision for unspecified reasons; Z20.828 Contact with and (suspected) exposure to other viral communicable diseases; B37.81 Candidal esophagitis; D62 Acute posthemorrhagic anemia; K29.50 Unspecified chronic gastritis without bleeding; K64.4 Residual hemorrhoidal skin tags; Y71.2 Prosthetic and other implants, materials and accessory cardiovascular devices associated with adverse incidents; R19.00 Intra-abdominal and pelvic swelling, mass and lump, unspecified site; Z59.0 Homelessness; Z79.01 Long term (current) use of anticoagulants; Z91.14 Patient's other noncompliance with medication regimen; Z91.19 Patient's noncompliance with other medical treatment and regimen; Z99.2 Dependence on renal dialysis; Z86.19 Personal history of other infectious and parasitic diseases; Y92.89 Other specified places as the place of occurrence of the external cause
CPT/HCPCS: J3490 ×2; 32555; 36415; 36556; 36558; 70450; 71045; 71046; 74018; 74177; 76705; 76937; 77001; 80048; 80053; 80069; 80074; 82272; 82306; 82533; 82565; 82656; 82710; 82728; 82784; 83516; 83540; 83550; 83605; 83631; 83735; 83880; 83970; 83986; 83993; 84100; 84302; 84439; 84443; 84484; 84550; 84999; 85014; 85018; 85025; 85610; 85651; 86078; 86140; 86361; 86592; 86706; 86850; 86900; 86923; 87015; 87046; 87102; 87116; 87206; 87207; 87324; 87328; 87329; 87427; 87493; 87496; 87497; 87536; 87635; 88305; 88312; 88342; 89055; 90935; 93005; 93306; 93990; 99152; 99153; 99156; 99157; C1894; G0378; J0881; J0882; J1644; J1756; J2248; J2250; J2405; J2704; J3010; J3370; Q0162; C1750; C1751; J1570; J1642; J2310; J2370; J3475; P9016; P9040